=== PATIENT | female | born 1970 | race Caucasian/White ===

== ENCOUNTER 2021-10-01 09:39 | Outpatient (CLI) | payer OTHER, SELFPAY ==
[2021-10-01 10:03] LABS: Basophils Percent Auto 1.3 % (0.0-1.0); Eosinophils Absolute Auto 0.17 K/mm3 (0.02-0.50); Eosinophils Percent Auto 2.2 % (1.0-6.0); Hematocrit 48.6 % (35.0-49.0); Hemoglobin 16.8 g/dL (12.0-15.0); Immature Granulocyte Absolute 0.05 K/mm3 (0.00-0.00); Immature Granulocyte Percent A 0.6 % (0.0-0.0); Lymphocytes Absolute Auto 2.83 K/mm3 (1.10-4.50); Lymphocytes Percent Auto 36.8 % (18.0-42.0); Mean Corpuscular HGB Conc 34.6 g/dL (32.0-36.0); Mean Corpuscular Hemoglobin 30.3 pg (27.0-31.0); Mean Corpuscular Volume 87.6 fL (78.0-102.0); Mean Platelet Volume 11.9 fl (9.2-11.8); Monocytes Absolute Auto 0.61 K/mm3 (0.10-0.90); Monocytes Percent Auto 7.9 % (2.0-11.0); Neutrophils Absolute Auto 3.9 K/mm3 (1.7-7.2); Neutrophils Percent Auto 51.2 % (50.0-70.0); Platelet Count Result 209 K/mm3 (150-420); Red Blood Count 5.55 M/mm3 (4.20-5.40); Red Cell Distribution Width 12.5 % (11.6-14.4); White Blood Count 7.7 K/mm3 (4.8-10.8)
[2021-10-01 10:28] LABS: Hemoglobin A1C 10.2 % (<5.7)
[2021-10-01 11:22] LABS: Alanine Aminotransferase 46 U/L (14-59); Albumin Level 4.2 g/dL (3.4-5.0); Alkaline Phosphatase 111 U/L (46-116); Anion Gap 14 mmol/L (8-16); Aspartate Amino Transferase 21 U/L (15-37); Bilirubin,Total 0.6 mg/dL (0.00-1.00); Blood Urea Nitrogen 16 mg/dL (7-18); Calcium 9.2 mg/dL (8.5-10.1); Carbon Dioxide 26 mmol/L (21-32); Chloride 95 mmol/L (98-108); Cholesterol 126 mg/dL (0-200); Estimated Glomerular Filt Rate 50; Glucose 366 mg/dL (70-99); HDL Direct 31 mg/dL (40-60); LDL Cholesterol Calculated 56 mg/dL (<130); Osmolality Calculated 296 mOsm/kg (285-295); Potassium 4.5 mmol/L (3.5-5.1); Sodium 135 mmol/L (136-145); Total Protein 7.5 g/dL (6.4-8.2); Triglycerides 196 mg/dL (0-150)
[2021-10-03 14:29] LABS: Vitamin D 25 Hydroxy 36 ng/mL (30-100)
== END 2021-10-01 09:40 | disposition home or self-care (01) ==
LOC: CHSLAB 09:41
PROVIDERS: PCP Nurse Practitioner Family; Visit Provider Nurse Practitioner Family
DX: E11.9 Type 2 diabetes mellitus without complications (principal); E78.00 Pure hypercholesterolemia, unspecified; E55.9 Vitamin D deficiency, unspecified
CPT/HCPCS: 36415; 80053; 80061; 82306; 83036; 85025

== ENCOUNTER 2021-12-12 12:20 | Outpatient (CLI) | payer OTHER, SELFPAY ==
--- NOTE | ~2021-12-12 | CT_ITS ---
EXAMINATION: CT lumbar spine wo con DATE: 12/12/2021 13:06 INDICATION: Dorsalgia. Neuropathy in the legs. TECHNIQUE: Computed tomography (CT) of the lumbar spine was performed without intravenous contrast. A utomated exposure control and iterative reconstruction technique were employed. The dose-length produ ct was 939.43 mGy-cm. COMPARISON: None FINDINGS: Bone alignment is normal. There are Schmorl's nodes at multiple levels. There is mild chron ic anterior wedging of T12 vertebral body. There is severely decreased disc height at L3-L4. There ar e changes of disc replacement at L4-L5. There are changes of anterior and posterior fusion procedures at L5-S1 with interbody devices and pedicle screws. Partially visualized are epidural electrodes wit h tips in thoracic spine. The following disc levels are specifically discussed: L1-L2: The disc does not extend beyond the endplate margin. There is mild bilateral facet joint osteo arthritis. There is no neural foraminal stenosis. There is no central canal stenosis. L2-L3: The disc is bulging. There is mild bilateral facet joint osteoarthritis. There is mild bilater al neural foraminal stenosis. There is mild central canal stenosis. L3-L4: The disc is bulging. There is mild bilateral facet joint osteoarthritis. There is mild right a nd moderate left neural foraminal stenosis. There is mild central canal stenosis. L4-L5: There is mild right and severe left facet joint osteoarthritis. There is mild bilateral neural foraminal stenosis. There is no central canal stenosis. L5-S1: There is mild bilateral facet joint hypertrophy. There is mild left neural foraminal stenosis. There is mild central canal stenosis. IMPRESSION: 1. Severe lumbar spondylosis. 2. Disc replacement at L4-L5. Anterior and posterior fusion procedures at L5-S1. Reviewed, dictated and finalized at location B. IMPRESSION: 1. Severe lumbar spondylosis. 2. Disc replacement at L4-L5. Anterior and posterior fusion procedures at L5-S1 .
[2021-12-12 13:47] LABS: Erythrocyte Sedimentation Rate 5 mm/hr (0-20)
[2021-12-12 13:57] LABS: Thyroid Stimulating Hormone Reflex 0.71 u/IU/mL (0.36-3.74)
[2021-12-12 13:58] LABS: Vitamin B12 992 pg/mL (193-986)
[2021-12-15 13:52] LABS: T4 Thyroxine 7.6 mcg/dL (5.1-11.9)
== END 2021-12-12 12:21 | disposition home or self-care (01) ==
LOC: CHSIMG 12:23
PROVIDERS: PCP Nurse Practitioner Family
DX: G62.9 Polyneuropathy, unspecified (principal); M54.9 Dorsalgia, unspecified
CPT/HCPCS: 36415; 72131; 80307; 82607; 84436; 84443; 85652; 86038

== ENCOUNTER 2022-04-17 11:17 | Outpatient (CLI) | payer OTHER, SELFPAY | END 2022-04-17 11:18 | disposition home or self-care (01) | LOC: CHSLAB 11:20 | PROVIDERS: PCP Nurse Practitioner Family | DX: Z79.891 Long term (current) use of opiate analgesic (principal) | CPT/HCPCS: 36415; 80307 ==

== ENCOUNTER 2022-07-07 10:16 | Emergency (ER) | payer OTHER, SELFPAY ==
--- NOTE | ~2022-07-07 | XR_ITS ---
XR ankle LT 2V DATE: 07/07/2022 11:20 INDICATION: Ankle and foot injury TECHNIQUE: AP and lateral views COMPARISON: None FINDINGS: There is a transverse lateral malleolar fracture 1 cm proximal to the inferior tip of the l ateral malleolus, with approximately 1.4 mm lateral displacement. Malleolus and posterior malleolus a re intact. The ankle mortise appears preserved. There is also a fracture of the base of the fifth metatarsal bone with minimal displacement. Prominent plantar calcaneal enthesopathy without erosive change or periostitis. IMPRESSION: Lateral malleolar and fifth metatarsal base fractures Reviewed, dictated and finalized at location A. 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
--- NOTE | ~2022-07-07 | XR_ITS ---
XR foot LT 2V DATE: 07/07/2022 11:20 INDICATION: Ankle and foot injury TECHNIQUE: AP and lateral views COMPARISON: None FINDINGS: There is a recent linear oblique minimally displaced intra-articular fracture of the base o f the fifth metatarsal bone. Lateral malleolar transverse fracture. There is an apparent chronic ununited fracture of the medial aspect of the head of the proximal phala nx of the left great toe. Prominent plantar calcaneal enthesopathy. IMPRESSION: Recent fractures, including intra-articular fracture of the base of the fifth metatarsal bone and lateral malleolar fracture Old ununited fracture of the medial head of the proximal phalanx of the left great toe Plantar calcaneal enthesopathy Reviewed, dictated and finalized at location A. KILN OPERATOR HELPER IMPRESSION: Recent fractures, including intra-articular fracture of the base of the fifth metatarsal bone and lateral malleolar fracture Old ununited fracture of the medial head of the proximal phalanx of the left gr eat toe Plantar calcaneal enthesopathy
--- NOTE | ~2022-07-07 | XR_ITS ---
EXAMINATION: XR knee RT 2V DATE: 07/07/2022 11:21 INDICATION: Right knee injury TECHNIQUE: Weightbearing AP and flexed lateral views of the right knee were obtained. COMPARISON: None. FINDINGS: Alignment is normal. No fracture. Joint spaces are normal. No right knee joint effusion. Mild soft ti ssue swelling anterior to the inferior patella. IMPRESSION: 1. No right knee joint effusion or osseous abnormality. Reviewed, dictated and finalized at location B. 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
[2022-07-07 10:35] VITALS: BP 125/74; PULSE 96; RESP 16; TEMP 36.2; O2SAT 92; O2SAT 94
--- NOTE | 2022-07-07 11:34 | ED.LOWEXIN ---
HPI - Extremity Injury (Lower) General Chief Complaint: Extremity Injury, Lower Stated Complaint: FOOT AND ANKLE PAIN Time Seen by Provider: 07/07/22 10:18 Source: patient and family Mode of arrival: wheelchair Limitations: no limitations History of Present Illness HPI Narrative: this is a 52-year-old female who presents with left foot and ankle pain after she missed a step yesterday causing pain and swelling in her left foot and ankle, she also hit her right knee, a patient with a history of diabetes and peripheral neuropathy, has decreased range of motion secondary to pain. MD complaint: ankle injury and foot injury Injury: Left: ankle ( swelling with decreased range of motion) and foot ( swelling with decreased range of motion) Type of Injury: inversion Place: home Severity: moderate Severity scale (1-10): 6 Relieving factors: nothing and NSAID Exacerbating factors: weight bearing, movement and palpation Context: fall Related Data Home Medications Medication Instructions Recorded Confirmed baclofen 10 mg tablet 10 mg PO BID PRN Pain 10/01/21 07/07/22 pregabalin 150 mg capsule 150 mg PO TID 10/01/21 10/01/21 tapentadol 100 mg tablet (Nucynta) 100 mg PO BID 10/01/21 07/07/22 Allergies Allergy/AdvReac Type Severity Reaction Status Date / Time morphine Allergy Severe vomitting Verified 07/07/22 10:54 codeine Allergy Unknown unknown Verified 07/07/22 10:54 Penicillins Allergy Unknown unknown Verified 07/07/22 10:54 Review of Systems Review of Systems: All systems reviewed & are unremarkable except as noted in HPI and below PMFSH Past Medical History Medical History Benign hypertension Spinal cord stimulator status Surgical History Surgical History History of appendectomy History of cholecystectomy History of hysterectomy Family History Family History Father Hypertension Family history of elevated blood lipids Family history of diabetes mellitus in first degree relative Mother Hypertension Family history of diabetes mellitus in first degree relative Social History Social History Smoking packs per day: 0.5 Smoking cigarettes per day: 10.0 Years smoked: 27 Smoking pack-years: 13.50 Smoking status: Current every day smoker Alcohol intake: never Substance use: never Substance use type: does not use Additional living arrangements comments: with father Exam Const: General: healthy appearing and no acute distress Nutritional Appearance: well nourished Limitations: no limitations HENMT: Head: normal to inspection Face/Nose/Sinus: Normal external nose present Eyes: Conjunctivae: conjunctivae normal Pupils: Equal, round and reactive pupils present EOM: EOMs intact bilaterally Direct Ophthalmoscopy: no photophobia Neck: Neck: normal visual inspection, no lymphadenopathy and no meningeal signs Chest: Chest palpation & inspection: normal inspection of the chest Resp: Effort & Inspection: normal respiratory effort Cardio: Rate: regular rate Rhythm: regular rhythm GI: GI Palp: Yes Soft to palpation Auscultation: normal bowel sounds : General: Yes bladder normal to palpation Back/Spine/Pelvis: Back: no CVA tenderness Skin: General skin exam: normal color Rashes: no rashes Wounds: no wounds Neuro: General: patient oriented x3 Cranial nerves: Yes Nystagmus not present Speech: normal speech Extrem: Other: Swelling and tenderness left lateral malleolus and foot pain and swelling. Psych: Affect: normal affect Course Course Emergency Course: Patient received 60mg IM Toradol after reassessment pain has slightly improved, x-rays performed and reviewed with patient showed a fracture of her left ankle and the base of her 5th metatarsal. Vital Si
[2022-07-07] MEDS: KETOROLAC (*BKC) 60 MG/2 ML VIAL IM (12:04)
[2022-07-07 12:25] VITALS: BP 140/65; PULSE 72; RESP 16; TEMP 36.8; O2SAT 95
== END 2022-07-07 12:30 | disposition home or self-care (01) ==
PROVIDERS: Emergency Provider Emergency Medicine; PCP Nurse Practitioner Family
DX: S82.892A Other fracture of left lower leg, initial encounter for closed fracture (principal); S92.902A Unspecified fracture of left foot, initial encounter for closed fracture
CPT/HCPCS: 29515; 73560; 73600; 73620; 96372; 99284; J1885

== ENCOUNTER 2022-07-08 13:54 | Outpatient (CLI) | payer OTHER, SELFPAY ==
[2022-07-08 14:17] LABS: Eosinophils Absolute Auto 0.34 K/mm3 (0.02-0.50); Eosinophils Percent Auto 3.4 % (1.0-6.0); Hematocrit 46.2 % (35.0-49.0); Hemoglobin 15.1 g/dL (12.0-15.0); Immature Granulocyte Absolute 0.03 K/mm3 (0.00-0.00); Immature Granulocyte Percent A 0.3 % (0.0-0.0); Lymphocytes Absolute Auto 2.76 K/mm3 (1.10-4.50); Lymphocytes Percent Auto 27.9 % (18.0-42.0); Mean Corpuscular HGB Conc 32.7 g/dL (32.0-36.0); Mean Corpuscular Hemoglobin 29.8 pg (27.0-31.0); Mean Corpuscular Volume 91.3 fL (78.0-102.0); Mean Platelet Volume 12.2 fl (9.2-11.8); Monocytes Absolute Auto 0.83 K/mm3 (0.10-0.90); Monocytes Percent Auto 8.4 % (2.0-11.0); Neutrophils Absolute Auto 5.9 K/mm3 (1.7-7.2); Platelet Count Result 169 K/mm3 (150-420); Red Blood Count 5.06 M/mm3 (4.20-5.40); Red Cell Distribution Width 13.5 % (11.6-14.4); White Blood Count 9.9 K/mm3 (4.8-10.8)
[2022-07-08 14:22] LABS: Creatinine Urine 63.82 mg/dL (40-278); MALB Creatinine Ratio 20.3 mg/g (0-30); Microalbumin Urine Random < 13.0 mg/L
[2022-07-08 14:24] LABS: Hemoglobin A1C 7.3 % (<5.7)
[2022-07-08 15:25] LABS: Alanine Aminotransferase 29 U/L (14-59); Albumin Level 3.8 g/dL (3.4-5.0); Alkaline Phosphatase 112 U/L (46-116); Anion Gap 7 mmol/L (8-16); Aspartate Amino Transferase 22 U/L (15-37); Bilirubin,Total 0.4 mg/dL (0.00-1.00); Blood Urea Nitrogen 20 mg/dL (7-18); Calcium 8.9 mg/dL (8.5-10.1); Carbon Dioxide 31 mmol/L (21-32); Chloride 103 mmol/L (98-108); Cholesterol 135 mg/dL (0-200); Estimated Glomerular Filt Rate 34; Glucose 227 mg/dL (70-99); HDL Direct 38 mg/dL (40-60); LDL Cholesterol Calculated 54 mg/dL (<130); Osmolality Calculated 301 mOsm/kg (285-295); Potassium 4.6 mmol/L (3.5-5.1); Sodium 141 mmol/L (136-145); Triglycerides 213 mg/dL (0-150); Vitamin B12 742 pg/mL (193-986)
[2022-07-10 17:41] LABS: Vitamin D 25 Hydroxy 33 ng/mL (30-100)
[2022-07-21 15:47] LABS: Red Blood Cell Folate 407 ng/mL RBC (>280)
== END 2022-07-08 13:55 | disposition home or self-care (01) ==
LOC: CHSLAB 13:56
PROVIDERS: PCP Nurse Practitioner Family; Visit Provider Nurse Practitioner Family
DX: N19 Unspecified kidney failure (principal); E78.00 Pure hypercholesterolemia, unspecified; E55.9 Vitamin D deficiency, unspecified; E11.21 Type 2 diabetes mellitus with diabetic nephropathy
CPT/HCPCS: 36415; 80053; 80061; 82043; 82306; 82607; 82746; 82747; 83036; 85025

== ENCOUNTER 2022-07-15 11:30 | Outpatient (CLI) | payer OTHER, SELFPAY ==
[2022-07-15 11:57] LABS: Basophils Absolute Auto 0.14 K/mm3 (0.00-0.10); Basophils Percent Auto 1.9 % (0.0-1.0); Eosinophils Absolute Auto 0.39 K/mm3 (0.02-0.50); Eosinophils Percent Auto 5.3 % (1.0-6.0); Hematocrit 48.8 % (35.0-49.0); Immature Granulocyte Absolute 0.03 K/mm3 (0.00-0.00); Immature Granulocyte Percent A 0.4 % (0.0-0.0); Lymphocytes Absolute Auto 2.29 K/mm3 (1.10-4.50); Lymphocytes Percent Auto 31.3 % (18.0-42.0); Mean Corpuscular HGB Conc 32.8 g/dL (32.0-36.0); Mean Corpuscular Hemoglobin 29.7 pg (27.0-31.0); Mean Corpuscular Volume 90.7 fL (78.0-102.0); Mean Platelet Volume 11.6 fl (9.2-11.8); Monocytes Absolute Auto 0.65 K/mm3 (0.10-0.90); Monocytes Percent Auto 8.9 % (2.0-11.0); Neutrophils Absolute Auto 3.8 K/mm3 (1.7-7.2); Neutrophils Percent Auto 52.2 % (50.0-70.0); Platelet Count Result 252 K/mm3 (150-420); Red Blood Count 5.38 M/mm3 (4.20-5.40); Red Cell Distribution Width 12.8 % (11.6-14.4); White Blood Count 7.3 K/mm3 (4.8-10.8)
[2022-07-15 12:32] LABS: Alanine Aminotransferase 35 U/L (14-59); Albumin Level 3.8 g/dL (3.4-5.0); Alkaline Phosphatase 127 U/L (46-116); Anion Gap 10 mmol/L (8-16); Aspartate Amino Transferase 22 U/L (15-37); Bilirubin,Total 0.5 mg/dL (0.00-1.00); Blood Urea Nitrogen 20 mg/dL (7-18); Calcium 9.4 mg/dL (8.5-10.1); Carbon Dioxide 29 mmol/L (21-32); Chloride 104 mmol/L (98-108); Estimated Glomerular Filt Rate 55; Glucose 173 mg/dL (70-99); Osmolality Calculated 302 mOsm/kg (285-295); Potassium 4.5 mmol/L (3.5-5.1); Sodium 143 mmol/L (136-145); Total Protein 7.7 g/dL (6.4-8.2)
[2022-07-15 13:16] LABS: Add Urine Microscopic? YES; Appearance Urine Clear (Clear); Bilirubin Urine Negative (Negative); Blood Urine Negative (Negative); Color Urine Yellow (Yellow); Glucose Urine UA 3+ (Negative); Ketones Urine Negative (Negative); Leukocyte Esterase Ur Negative (Negative); Nitrate Urine Negative (Negative); Protein Urine Negative (Negative); Specific Grav Ur 1.015 (1.010-1.020); Urobilinogen Urine 0.2 mg/dL (0.2-1.0)
[2022-07-15 13:21] LABS: RBC Urine None seen /hpf (0-2); Squamous Epithelial Cell Urine Occasional /hpf (Few); WBC Urine None seen /hpf (0-3)
[2022-07-15 13:22] LABS: Bacteria Urine Trace /hpf
== END 2022-07-15 11:31 | disposition home or self-care (01) ==
LOC: CHSLAB 11:32
PROVIDERS: PCP Nurse Practitioner Family; Visit Provider Nurse Practitioner Family
DX: E55.9 Vitamin D deficiency, unspecified (principal); N18.30 Chronic kidney disease, stage 3 unspecified
CPT/HCPCS: 36415; 80053; 81001; 85025

== ENCOUNTER 2022-10-13 09:48 | Outpatient (CLI) | payer OTHER, SELFPAY ==
--- NOTE | ~2022-10-13 | XR_ITS ---
EXAMINATION: XR sacroiliac joints min 3V DATE: 10/13/2022 14:45 INDICATION: Chronic bilateral hip and lower back pain TECHNIQUE: AP and left and right lateral views of the bilateral sacralized joints were obtained. COMPARISON: None. FINDINGS: Postoperative changes in the lumbar spine including combined instrumented anterior and posterior spin al fusion at L5-S1 with interbody bone graft cages and bilateral vertical ashli and pedicle screw fixat ion. There is also L4-L5 prosthetic disc. Likely spinal stimulator power supply projects over the lef t buttock with leads extending medially to the mid lumbar spine and cephalad beyond the superior evita in of the [id number]. Mild bilateral sacroiliac osteoarthritis with mild nonuniform joint space narrowing and mild subartic ular sclerosis. No joint space widening or erosions to suggest an inflammatory sacroiliitis. There is also mild right and minimal left hip osteoarthritis. No fractures. IMPRESSION: 1. 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 Reviewed, dictated and finalized at location A. CTOR SAFETY
--- NOTE | ~2022-10-13 | XR_ITS ---
CORRECTED REPORT ordering doctor corrected 10/13/2022 LILLIAN This report was recreated on 10/13/22. Original report was signed by Chance Garcia M.D. on 10/13/2022 14:50 SALES AND SERVICE CONSULTANT. AP and lateral views of the bilateral hips Clinical history: Pain Findings: No acute fracture or dislocation is seen. Osseous alignment is anatomic. Bilateral hip and SI joint spaces are preserved. Soft tissues are unremarkable. Impression: No significant abnormality is seen. Reviewed, dictated and finalized at location . S AND SERVICE CONSULTANT MTDD Impression: No significant abnormality is seen.
[2022-10-13 10:38] LABS: Alanine Aminotransferase 43 U/L (14-59); Albumin Level 4.2 g/dL (3.4-5.0); Alkaline Phosphatase 140 U/L (46-116); Anion Gap 7 mmol/L (8-16); Aspartate Amino Transferase 22 U/L (15-37); Bilirubin,Total 0.5 mg/dL (0.00-1.00); Blood Urea Nitrogen 14 mg/dL (7-18); Carbon Dioxide 30 mmol/L (21-32); Chloride 103 mmol/L (98-108); Cholesterol 118 mg/dL (0-200); Estimated Glomerular Filt Rate 53; Glucose 162 mg/dL (70-99); HDL Direct 33 mg/dL (40-60); LDL Cholesterol Calculated 52 mg/dL (<130); Osmolality Calculated 294 mOsm/kg (285-295); Phosphorus 4.3 mg/dL (2.6-4.7); Potassium 4.5 mmol/L (3.5-5.1); Sodium 140 mmol/L (136-145); Total Protein 7.3 g/dL (6.4-8.2); Triglycerides 167 mg/dL (0-150)
== END 2022-10-13 09:49 | disposition home or self-care (01) ==
PROVIDERS: PCP Nurse Practitioner Family; Visit Provider Nurse Practitioner Family
DX: N18.30 Chronic kidney disease, stage 3 unspecified (principal); E11.21 Type 2 diabetes mellitus with diabetic nephropathy; M46.1 Sacroiliitis, not elsewhere classified; M25.559 Pain in unspecified hip
CPT/HCPCS: 36415; 72202; 73521; 80053; 80061; 80069; 83036

== ENCOUNTER 2022-10-28 12:22 | Outpatient (CLI) | payer OTHER, SELFPAY ==
--- NOTE | ~2022-10-28 | DEXA_ITS ---
Bone Density Report Name: MONTEZ MAGUIRE Age: 52 Sex: Female Ethnicity: White Date of : 1970 Indication: postmenopausal; screening for osteoporosis; prior fracture; hysterectomy; Referring Provider: KAY ACHARYA Study: Bone densitometry was performed. Exam Date: October 28, 2022 Accession number: [id number] Bone Density: Region BMD T-score Z-score Classification Femoral Neck (Left) 0.821 -0.2 0.7 Normal Total Hip (Left) 0.921 -0.2 0.4 Normal Femoral Neck (Right) 0.695 -1.4 -0.5 Osteopenia Total Hip (Right) 0.976 0.3 0.9 Normal Femoral Neck Mean 0.758 -0.8 0.1 Normal Total Hip Mean 0.949 0.1 0.6 Normal World Health Organization criteria for BMD impression classify patients as: Normal (T-score at or above -1.0), Osteopenia (T-score between -1.0 and -2.5), or Osteoporosis (T-score at or below -2.5). 10-year Fracture Risk: FRAX not reported because: Treated for osteoporosis Clinical Information Provided by Patient: Has had a low trauma fracture Smokes Is being treated for osteoporosis Has used the following medications: Vitamin D, injections for osteoporosis - unsure of name Has the following medical conditions: Hysterectomy Patient maximum height was 62 Menopause Age: 23 No regular weight bearing exercise Does not regularly consume dairy products Drinks caffeinated beverages Onset of menses at age 18 Number of children 3 Impression: The patient has low bone mass, based on the Right Femoral Neck T-score. The patient has risk factors, including: smoking, previous fracture. Discussion: It is important to ask patients whether they are taking their medications and to encourage continued and appropriate compliance with their osteoporosis therapies to reduce fracture risk. It is also important to review their risk factors and encourage appropriate calcium and vitamin D intakes, exercise, fall prevention and other lifestyle measures. Follow-Up: Consider a repeat BMD and Vertebral Fracture Assessment (VFA) exam in 2 years or sooner if medically necessary, to reassess this patient's status. Reported by: Dr. Christos Wolf on 10/28/2022 1:07:00 PM. Reviewed, dictated and finalized at location A. [facility] CENTERPattie
== END 2022-10-28 12:23 | disposition home or self-care (01) ==
LOC: CHSIMG 12:22
PROVIDERS: PCP Nurse Practitioner Family; Visit Provider Nurse Practitioner Family
DX: Z78.0 Asymptomatic menopausal state (principal); M85.851 Other specified disorders of bone density and structure, right thigh
CPT/HCPCS: 77080

== ENCOUNTER 2022-12-04 10:20 | Outpatient (CLI) | payer OTHER, SELFPAY ==
[2022-12-10 12:58] LABS: Amphetamines NEGATIVE ng/mL (<500); Barbiturates NEGATIVE ng/mL (<300); Benzodiazepines NEGATIVE ng/mL (<100); Cocaine Metabolite NEGATIVE ng/mL (<100); Marijuana Metabolite 45 ng/mL (<5); Methadone Metabolite NEGATIVE ng/mL (<100); Opiates NEGATIVE ng/mL (<100); Oxidant NEGATIVE mcg/mL (<200); pH 7.3 (4.5-9.0)
== END 2022-12-04 10:21 | disposition home or self-care (01) ==
PROVIDERS: PCP Nurse Practitioner Family; Visit Provider Nurse Practitioner Family
DX: G89.4 Chronic pain syndrome (principal)
CPT/HCPCS: 80299; 80349; G0480

== ENCOUNTER 2023-01-02 11:49 | Outpatient (CLI) | payer OTHER, SELFPAY ==
[2023-01-02 12:18] LABS: Hemoglobin A1C 6.3 % (<5.7)
[2023-01-02 12:45] LABS: Alanine Aminotransferase 39 U/L (14-59); Alkaline Phosphatase 133 U/L (46-116); Anion Gap 9 mmol/L (8-16); Aspartate Amino Transferase 21 U/L (15-37); Bilirubin,Total 0.4 mg/dL (0.00-1.00); Blood Urea Nitrogen 9 mg/dL (7-18); Calcium 9.5 mg/dL (8.5-10.1); Carbon Dioxide 29 mmol/L (21-32); Chloride 106 mmol/L (98-108); Cholesterol 123 mg/dL (0-200); Estimated Glomerular Filt Rate 47; Glucose 119 mg/dL (70-99); HDL Direct 43 mg/dL (40-60); LDL Cholesterol Calculated 59 mg/dL (<130); Osmolality Calculated 297 mOsm/kg (285-295); Potassium 4.3 mmol/L (3.5-5.1); Sodium 144 mmol/L (136-145); Triglycerides 107 mg/dL (0-150)
[2023-01-02 16:11] LABS: Creatinine Urine 19.15 mg/dL (40-278); MALB Creatinine Ratio 67.8 mg/g (0-30); Microalbumin Urine Random < 13.0 mg/L
[2023-01-08 17:31] LABS: Vitamin D 25 Hydroxy 47 ng/mL (30-100)
== END 2023-01-02 11:50 | disposition home or self-care (01) ==
LOC: CHSLAB 11:51
PROVIDERS: PCP Nurse Practitioner Family; Visit Provider Nurse Practitioner Family
DX: E11.21 Type 2 diabetes mellitus with diabetic nephropathy (principal); E55.9 Vitamin D deficiency, unspecified; E78.00 Pure hypercholesterolemia, unspecified; N18.30 Chronic kidney disease, stage 3 unspecified
CPT/HCPCS: 36415; 80053; 80061; 82043; 82306; 83036

== ENCOUNTER 2023-02-25 13:16 | Outpatient (CLI) | payer OTHER, SELFPAY ==
--- NOTE | ~2023-02-25 | US_ITS ---
Renal-Bladder ultrasound Clinical History: Type 2 diabetes, chronic kidney disease Technique: Real-time sonographic imaging of the kidneys and urinary bladder was performed. Findings: The right kidney measures 9.3 cm in length and the left kidney measures 8.9 cm. There is no hydronephrosis or renal calculus identified. Renal cortical echogenicity is within normal limits. No renal mass lesion is identified. The urinary bladder is moderately distended at the time of this exam. No intraluminal echoes are iden tified. No abnormal wall thickening is seen. Impression: Unremarkable ultrasound of the kidneys and urinary bladder. Reviewed, dictated and finalized at location M. Impression: Unremarkable ultrasound of the kidneys and urinary bladder.
== END 2023-02-25 13:17 | disposition home or self-care (01) ==
LOC: CHSIMG 13:17
PROVIDERS: PCP Nurse Practitioner Family; Visit Provider Internal Medicine Nephrology
DX: E11.22 Type 2 diabetes mellitus with diabetic chronic kidney disease (principal); N18.31 Chronic kidney disease, stage 3a
CPT/HCPCS: 76775

== ENCOUNTER 2023-03-11 08:32 | Outpatient (CLI) | payer OTHER, SELFPAY ==
[2023-03-11 08:53] LABS: Creatinine Urine 25.43 mg/dL (40-278); Sodium Urine Random 41 mmol/L (20-110)
[2023-03-11 08:59] LABS: Total Protein Urine Random < 6.0 mg/dL (0.0-11.9); Ur Ttl Prot Creatinine Ratio 0.24 mg/mg (0-0.20)
[2023-03-11 09:35] LABS: Albumin Level 4.2 g/dL (3.4-5.0); Anion Gap 9 mmol/L (8-16); Blood Urea Nitrogen 12 mg/dL (7-18); Calcium 9.5 mg/dL (8.5-10.1); Carbon Dioxide 31 mmol/L (21-32); Chloride 104 mmol/L (98-108); Estimated Glomerular Filt Rate 54; Glucose 128 mg/dL (70-99); Osmolality Calculated 299 mOsm/kg (285-295); Phosphorus 4.4 mg/dL (2.6-4.7); Potassium 4.4 mmol/L (3.5-5.1); Sodium 144 mmol/L (136-145)
[2023-03-14 09:54] LABS: Complement C3 149 mg/dL (83-193)
[2023-03-14 12:28] LABS: Anti Glomerular Basement Memb <1.0 AI (<1.0)
[2023-03-14 23:00] LABS: Albumin 4.1 g/dL (3.8-4.8); Alpha 1 Globulin 0.3 g/dL (0.2-0.3); Beta 1 Globulin 0.5 g/dL (0.4-0.6); Protein, Total 7.2 g/dL (6.1-8.1)
[2023-03-16 13:02] LABS: ANCA Screen Negative (Negative)
[2023-03-16 21:19] LABS: Creatinine, Random Urine 29 mg/dL (20-275); Total Protein/Creatinine Ratio 138 mg/g creat (24-184)
== END 2023-03-11 08:33 | disposition home or self-care (01) ==
LOC: CHSLAB 08:33
PROVIDERS: PCP Nurse Practitioner Family; Visit Provider Internal Medicine Nephrology
DX: N18.31 Chronic kidney disease, stage 3a (principal); E11.22 Type 2 diabetes mellitus with diabetic chronic kidney disease
CPT/HCPCS: 36415; 80069; 82570; 83520; 84155; 84156; 84165; 84166; 84300; 86036; 86038; 86160; 86225

== ENCOUNTER 2023-04-06 11:50 | Outpatient (CLI) | payer OTHER, SELFPAY ==
[2023-04-06 12:11] LABS: Hematocrit 51.2 % (35.0-49.0); Mean Corpuscular HGB Conc 33.2 g/dL (32.0-36.0); Mean Corpuscular Hemoglobin 30.1 pg (27.0-31.0); Mean Corpuscular Volume 90.6 fL (78.0-102.0); Mean Platelet Volume 11.4 fl (9.2-11.8); Platelet Count Result 197 K/mm3 (150-420); Red Blood Count 5.65 M/mm3 (4.20-5.40); Red Cell Distribution Width 13.4 % (11.6-14.4); White Blood Count 9.5 K/mm3 (4.8-10.8)
[2023-04-06 12:35] LABS: Creatinine Urine 21.36 mg/dL (40-278); MALB Creatinine Ratio 60.8 mg/g (0-30); Microalbumin Urine Random < 13.0 mg/L
[2023-04-06 12:51] LABS: Hemoglobin A1C 5.8 % (<5.7)
[2023-04-06 13:10] LABS: Alanine Aminotransferase 41 U/L (14-59); Albumin Level 4.1 g/dL (3.4-5.0); Alkaline Phosphatase 127 U/L (46-116); Anion Gap 7 mmol/L (8-16); Aspartate Amino Transferase 22 U/L (15-37); Bilirubin,Total 0.5 mg/dL (0.00-1.00); Blood Urea Nitrogen 12 mg/dL (7-18); Calcium 9.6 mg/dL (8.5-10.1); Carbon Dioxide 33 mmol/L (21-32); Chloride 102 mmol/L (98-108); Estimated Glomerular Filt Rate 59; Glucose 145 mg/dL (70-99); Osmolality Calculated 296 mOsm/kg (285-295); Potassium 4.2 mmol/L (3.5-5.1); Sodium 142 mmol/L (136-145); Total Protein 7.4 g/dL (6.4-8.2)
[2023-04-13 21:16] LABS: Vitamin D 25 Hydroxy 45 ng/mL (30-100)
== END 2023-04-06 11:51 | disposition home or self-care (01) ==
LOC: CHSLAB 11:52
PROVIDERS: PCP Nurse Practitioner Family; Visit Provider Nurse Practitioner Family
DX: E55.9 Vitamin D deficiency, unspecified (principal); E11.9 Type 2 diabetes mellitus without complications; N18.30 Chronic kidney disease, stage 3 unspecified
CPT/HCPCS: 36415; 80053; 82043; 82306; 83036; 85027

== ENCOUNTER 2023-05-07 12:01 | Outpatient (CLI) | payer OTHER, SELFPAY | END 2023-05-07 12:02 | disposition home or self-care (01) | LOC: CHSLAB 12:03 | PROVIDERS: PCP Nurse Practitioner Family; Visit Provider Nurse Practitioner Family | DX: G62.9 Polyneuropathy, unspecified (principal); Z79.891 Long term (current) use of opiate analgesic; G89.4 Chronic pain syndrome | CPT/HCPCS: 36415; 80307; 80349; 80361; G0480 ==

== ENCOUNTER 2023-05-28 15:20 | Outpatient (CLI) | payer OTHER, SELFPAY ==
--- NOTE | ~2023-05-28 | XR_ITS ---
XR chest 2V DATE: 05/28/2023 16:04 INDICATION: Wheezing for one month TECHNIQUE: PA and lateral views COMPARISON: None FINDINGS: Normal heart size. No hilar or mediastinal enlargement. No pulmonary infiltrate or consolid ation, pleural effusion or pulmonary vascular congestion or pneumothorax is detected. Thoracic spinal leads. Status post cholecystectomy. Osteopenia. IMPRESSION: No active cardiopulmonary disease Reviewed, dictated and finalized at location L.
--- NOTE | ~2023-05-28 | XR_ITS ---
XR wrist LT min 3V DATE: 05/28/2023 16:04 INDICATION: Left wrist pain for 3 months TECHNIQUE: 4 views COMPARISON: None FINDINGS: No fracture or dislocation, periosteal reaction or bone destruction. Joint spaces are prese rved. No erosive change or chondrocalcinosis. IMPRESSION: Negative Reviewed, dictated and finalized at location L. IMPRESSION: Negative
[2023-05-28 16:16] LABS: Basophils Absolute Auto 0.11 K/mm3 (0.00-0.10); Basophils Percent Auto 1.6 % (0.0-1.0); Eosinophils Absolute Auto 0.28 K/mm3 (0.02-0.50); Eosinophils Percent Auto 4.1 % (1.0-6.0); Hematocrit 47.5 % (35.0-49.0); Hemoglobin 15.5 g/dL (12.0-15.0); Immature Granulocyte Absolute 0.01 K/mm3 (0.00-0.00); Immature Granulocyte Percent A 0.1 % (0.0-0.0); Lymphocytes Absolute Auto 3.21 K/mm3 (1.10-4.50); Lymphocytes Percent Auto 47.5 % (18.0-42.0); Mean Corpuscular HGB Conc 32.6 g/dL (32.0-36.0); Mean Corpuscular Hemoglobin 29.6 pg (27.0-31.0); Mean Corpuscular Volume 90.6 fL (78.0-102.0); Mean Platelet Volume 11.2 fl (9.2-11.8); Monocytes Absolute Auto 0.66 K/mm3 (0.10-0.90); Monocytes Percent Auto 9.8 % (2.0-11.0); Neutrophils Absolute Auto 2.5 K/mm3 (1.7-7.2); Neutrophils Percent Auto 36.9 % (50.0-70.0); Platelet Count Result 166 K/mm3 (150-420); Red Blood Count 5.24 M/mm3 (4.20-5.40); Red Cell Distribution Width 13.2 % (11.6-14.4); White Blood Count 6.8 K/mm3 (4.8-10.8)
[2023-05-28 17:27] LABS: Alanine Aminotransferase 56 U/L (14-59); Albumin Level 3.6 g/dL (3.4-5.0); Alkaline Phosphatase 129 U/L (46-116); Anion Gap 7 mmol/L (8-16); Aspartate Amino Transferase 25 U/L (15-37); Bilirubin,Total 0.3 mg/dL (0.00-1.00); Blood Urea Nitrogen 11 mg/dL (7-18); Calcium 9.2 mg/dL (8.5-10.1); Carbon Dioxide 29 mmol/L (21-32); Chloride 105 mmol/L (98-108); Estimated Glomerular Filt Rate 59; Glucose 117 mg/dL (70-99); NT Pro B Type Natriuretic Pept 51 pg/mL (0-125); Osmolality Calculated 292 mOsm/kg (285-295); Potassium 4.3 mmol/L (3.5-5.1); Sodium 141 mmol/L (136-145); Total Protein 6.4 g/dL (6.4-8.2)
== END 2023-05-28 15:21 | disposition home or self-care (01) ==
PROVIDERS: PCP Nurse Practitioner Family; Visit Provider Nurse Practitioner Family
DX: M25.532 Pain in left wrist (principal); R53.83 Other fatigue; R06.2 Wheezing
CPT/HCPCS: 36415; 71046; 73110; 80053; 83880; 85025

== ENCOUNTER 2023-06-03 11:26 | Outpatient (CLI) | payer OTHER, SELFPAY ==
[2023-06-03 11:35] LABS: Appearance Urine Clear (Clear); Bilirubin Urine Negative (Negative); Blood Urine 1+ (Negative); Color Urine Light Yellow (Yellow); Glucose Urine UA 3+ (Negative); Ketones Urine Negative (Negative); Leukocyte Esterase Ur 1+ (Negative); Nitrate Urine Negative (Negative); Protein Urine Negative (Negative); Specific Grav Ur <= 1.005 (1.010-1.020); Urobilinogen Urine 0.2 mg/dL (0.2-1.0); pH Urine 6.5 (5.0-8.0)
[2023-06-03 11:40] LABS: Add Urine Microscopic? YES; Bacteria Urine 1+ /hpf; Renal Epithelial Cells Urine Few /hpf; Squamous Epithelial Cell Urine Few /hpf (Few)
== END 2023-06-03 11:27 | disposition home or self-care (01) ==
LOC: CHSLAB 11:27
PROVIDERS: PCP Nurse Practitioner Family; Visit Provider Nurse Practitioner Family
DX: R42 Dizziness and giddiness (principal); R53.83 Other fatigue; R82.90 Unspecified abnormal findings in urine
CPT/HCPCS: 81001; 87086; 87088

== ENCOUNTER 2023-06-15 11:32 | Outpatient (CLI) | payer OTHER, SELFPAY | END 2023-06-15 11:33 | disposition home or self-care (01) | LOC: CHSLAB 11:34 | PROVIDERS: PCP Nurse Practitioner Family; Visit Provider Nurse Practitioner Family | DX: N18.31 Chronic kidney disease, stage 3a (principal) | CPT/HCPCS: 87086 ==

== ENCOUNTER 2023-07-13 08:37 | Outpatient (CLI) | payer OTHER, SELFPAY ==
[2023-07-13 09:13] LABS: Creatinine Urine 86.82 mg/dL (40-278); Total Protein Urine Random 10.7 mg/dL (0.0-11.9); Ur Ttl Prot Creatinine Ratio 0.12 mg/mg (0-0.20)
[2023-07-13 09:15] LABS: Hemoglobin A1C 6.4 % (<5.7)
[2023-07-13 09:28] LABS: Albumin Level 3.6 g/dL (3.4-5.0); Anion Gap 5 mmol/L (8-16); Blood Urea Nitrogen 11 mg/dL (7-18); Calcium 8.8 mg/dL (8.5-10.1); Carbon Dioxide 34 mmol/L (21-32); Chloride 102 mmol/L (98-108); Estimated Glomerular Filt Rate 49; Glucose 138 mg/dL (70-99); Osmolality Calculated 293 mOsm/kg (285-295); Phosphorus 4.9 mg/dL (2.6-4.7); Potassium 4.3 mmol/L (3.5-5.1); Sodium 141 mmol/L (136-145)
[2023-07-15 20:11] LABS: Parathyroid Intact 76 pg/mL (14-64)
[2023-07-17 11:29] LABS: Vitamin D 25 Hydroxy 22 ng/mL (30-100)
--- NOTE | 2023-07-20 12:16 | P.PCNPFT_ITS ---
PFT Procedure Performed PFT Procedure Performed Spirometry with Pre/Post Bronchodilator Plethysmography (Lung Vol) Diffusing Cap (DLCO) PFT Interpretation DOS: 07/13/2023 REQUESTING: Matthias Forman APRN REASON FOR TESTING: Wheezing PULMONARY FUNCTION TESTS Results are reliable and reproducible. Spirometry: Pre bronchodilator FEV1 is 2.02 L, 85%, normal. Pre bronchodilator FVC is 2.69 L, 93% predicted. Normal. FEV1/ FVC is 75%, normal. After bronchodilator administration there is a 7% increase in the FEV1, 2.16 L, 91%. After bronchodilator there was a 12% increase in the FVC, 3.02 L, 104%. This is a significant response to bronchodilator. The FEV1/ FVC ratio post bronchodilator is 72%. The [id number] is 60% predicted, drops 4% after bronchodilator administration. Lung volumes: Total lung capacity is 4.33 L, 95%, normal. Residual volume is 1.64 L, 101%, normal. RV /TLC is 38%, normal. Airway resistance is 6 0.25, 387%, elevated. Diffusion: DLCO is 15.9, 75% predicted, normal. DLCO/VA is 6.25, 87%, normal. Flow volume loop: Normal IMPRESSION: This pulmonary function tests on 07/13/2023 shows normal spirometry, normal lung volumes, normal diffusion with a positive response to bronchodilator. In the proper setting, this pattern may be consistent with as thma. Clinical correlation recommended. There are no prior studies for comparison. Alyson Meier MD
== END 2023-07-13 08:38 | disposition home or self-care (01) ==
LOC: CHSCARD 08:38
PROVIDERS: PCP Nurse Practitioner Family; Visit Provider Internal Medicine Nephrology
DX: E11.22 Type 2 diabetes mellitus with diabetic chronic kidney disease (principal); E55.9 Vitamin D deficiency, unspecified; N18.31 Chronic kidney disease, stage 3a; N25.81 Secondary hyperparathyroidism of renal origin; I12.9 Hypertensive chronic kidney disease with stage 1 through stage 4 chronic kidney disease, or unspecified chronic kidney disease; N18.30 Chronic kidney disease, stage 3 unspecified
CPT/HCPCS: 36415; 80069; 82306; 82570; 83036; 83970; 84156; 94060; 94726; 94729

== ENCOUNTER 2023-11-03 13:49 | Outpatient (CLI) | payer MEDICARE, MEDICAID, SELFPAY ==
--- NOTE | ~2023-11-03 | US_ITS ---
EXAMINATION: US arterial ankle brachial ind DATE: 11/03/2023 14:24 INDICATION: Purplish discoloration of the bilateral feet TECHNIQUE: Segmental pressures and plethysmographic and Doppler waveforms of the brachial and lower e xtremity arteries were obtained. COMPARISON: None. FINDINGS: Right and left brachial artery pressures of 140 mm Hg and 141 mm Hg, respectively, are concordant (no rmal difference <= 30 mmHg). The right ankle-brachial index (SEAMUS) is 1.17 (normal >= 0.9-1.0). The right great toe-brachial index (TBI) is 0.95 (normal >= 0.65). Arterial Doppler waveforms are biphasic with brisk systolic upstrokes at both right posterior tibial and dorsalis pedis arteries. The left SEAMUS is 1.13. The left TBI is 0.83. Arterial Doppler waveforms are triphasic with brisk systo lic upstrokes at both left posterior tibial and dorsalis pedis arteries. IMPRESSION: 1. No significant arterial occlusive disease with normal bilateral ABIs and TBIs. Reviewed, dictated and finalized at location L. IMPRESSION: 1. No significant arterial occlusive disease with normal bilateral ABIs and TBI s.
== END 2023-11-03 13:50 | disposition home or self-care (01) ==
LOC: CHSIMG 13:51
PROVIDERS: PCP Nurse Practitioner Family; Visit Provider Nurse Practitioner Family
DX: I73.9 Peripheral vascular disease, unspecified (principal); F17.200 Nicotine dependence, unspecified, uncomplicated
CPT/HCPCS: 93922

== ENCOUNTER 2023-11-09 11:20 | Outpatient (CLI) | payer MEDICARE, MEDICAID, SELFPAY ==
[2023-11-09 11:50] LABS: Creatinine Urine 16.56 mg/dL (40-278)
[2023-11-09 11:56] LABS: Hemoglobin A1C 6.8 % (<5.7)
[2023-11-09 11:58] LABS: Total Protein Urine Random < 7.0 mg/dL (0.0-11.9); Ur Ttl Prot Creatinine Ratio 0.42 mg/mg (0-0.20)
[2023-11-09 12:17] LABS: Albumin Level 4.1 g/dL (3.4-5.0); Anion Gap 10 mmol/L (8-16); Blood Urea Nitrogen 10 mg/dL (7-18); Calcium 9.2 mg/dL (8.5-10.1); Carbon Dioxide 31 mmol/L (21-32); Chloride 102 mmol/L (98-108); Estimated Glomerular Filt Rate 57; Glucose 78 mg/dL (70-99); Osmolality Calculated 294 mOsm/kg (285-295); Phosphorus 4.3 mg/dL (2.6-4.7); Potassium 4.3 mmol/L (3.5-5.1); Sodium 143 mmol/L (136-145)
[2023-11-13 02:57] LABS: Vitamin D 25 Hydroxy 67 ng/mL (30-100)
== END 2023-11-09 11:21 | disposition home or self-care (01) ==
LOC: CHSLAB 11:22
PROVIDERS: PCP Nurse Practitioner Family; Visit Provider Internal Medicine Nephrology
DX: E11.22 Type 2 diabetes mellitus with diabetic chronic kidney disease (principal); E55.9 Vitamin D deficiency, unspecified; N18.31 Chronic kidney disease, stage 3a; E11.9 Type 2 diabetes mellitus without complications
CPT/HCPCS: 36415; 80069; 82306; 82570; 83036; 84156

== ENCOUNTER 2024-03-16 09:55 | Outpatient (CLI) | payer MEDICARE, SELFPAY ==
[2024-03-16 10:16] LABS: Basophils Absolute Auto 0.08 K/mm3 (0.00-0.10); Basophils Percent Auto 1.3 % (0.0-1.0); Eosinophils Absolute Auto 0.28 K/mm3 (0.02-0.50); Eosinophils Percent Auto 4.6 % (1.0-6.0); Hematocrit 49.7 % (35.0-49.0); Hemoglobin 16.2 g/dL (12.0-15.0); Immature Granulocyte Absolute 0.02 K/mm3 (0.00-0.00); Immature Granulocyte Percent A 0.3 % (0.0-0.0); Immature Platelet Fraction Pct 5.7 % (1.0-7.0); Lymphocytes Absolute Auto 2.11 K/mm3 (1.10-4.50); Lymphocytes Percent Auto 34.5 % (18.0-42.0); Mean Corpuscular HGB Conc 32.6 g/dL (32-36); Mean Corpuscular Hemoglobin 28.9 pg (27.0-31.0); Mean Corpuscular Volume 88.8 fL (78.0-102.0); Mean Platelet Volume 11.6 fl (9.2-11.8); Monocytes Absolute Auto 0.55 K/mm3 (0.10-0.90); Neutrophils Absolute Auto 3.07 K/mm3 (1.70-7.20); Neutrophils Percent Auto 50.3 % (50.0-70.0); Platelet Count Result 129 K/mm3 (150-420); Red Cell Distribution Width 14.6 % (11.6-14.4); White Blood Count 6.1 K/mm3 (4.8-10.8)
[2024-03-16 10:20] LABS: Creatinine Urine 67.18 mg/dL (40-278); Total Protein Urine Random 10.2 mg/dL (0.0-11.9); Ur Ttl Prot Creatinine Ratio 0.15 mg/mg (0-0.20)
[2024-03-16 10:23] LABS: Hemoglobin A1C 6.2 % (<5.7)
[2024-03-16 10:50] LABS: Alanine Aminotransferase 52 U/L (14-59); Alkaline Phosphatase 156 U/L (46-116); Anion Gap 9 mmol/L (4-12); Aspartate Amino Transferase 35 U/L (15-37); Bilirubin,Total 0.3 mg/dL (0.00-1.00); Blood Urea Nitrogen 10 mg/dL (7-18); Calcium 8.9 mg/dL (8.5-10.1); Carbon Dioxide 27 mmol/L (21-32); Chloride 104 mmol/L (98-108); Cholesterol 144 mg/dL (0-200); Estimated Glomerular Filt Rate > 60; Glucose 140 mg/dL (70-99); HDL Direct 47 mg/dL (40-60); LDL Cholesterol Calculated 57 mg/dL (<130); Osmolality Calculated 291 mOsm/kg (285-295); Phosphorus 4.5 mg/dL (2.6-4.7); Potassium 4.6 mmol/L (3.5-5.1); Sodium 140 mmol/L (136-145); Triglycerides 202 mg/dL (0-150)
[2024-03-17 13:14] LABS: Parathyroid Intact 69 pg/mL (16-77)
[2024-03-18 11:44] LABS: Vitamin D 25 Hydroxy 40 ng/mL (30-100)
== END 2024-03-16 09:56 | disposition home or self-care (01) ==
LOC: CHSLAB 09:59
PROVIDERS: PCP Nurse Practitioner Family; Visit Provider Internal Medicine Nephrology
DX: Z00.00 Encounter for general adult medical examination without abnormal findings (principal); E11.22 Type 2 diabetes mellitus with diabetic chronic kidney disease; E55.9 Vitamin D deficiency, unspecified; N18.31 Chronic kidney disease, stage 3a; N25.81 Secondary hyperparathyroidism of renal origin
CPT/HCPCS: 36415; 80053; 80061; 82306; 82570; 83036; 83970; 84100; 84156; 85025; 85055

== ENCOUNTER 2024-06-03 14:04 | Outpatient (CLI) | payer MEDICARE, MEDICAID, SELFPAY ==
--- NOTE | ~2024-06-03 | CT_ITS ---
EXAMINATION: CT brain wo con DATE: 06/03/2024 14:34 INDICATION: Speech deficit. TECHNIQUE: Computed tomography (CT) of the head was performed without intravenous contrast. The mA wa s adjusted according to patient size. Iterative reconstruction technique was employed. The dose-lengt h product was 529.67 mGy-cm. COMPARISON: None FINDINGS: There is no intracranial hemorrhage, acute infarction, or abnormal intracranial mass lesion . There are prominent perivascular spaces in the bilateral basal ganglia. The ventricles are normal i n size. The paranasal sinuses are clear. The orbits are normal. The mastoid air cells are normal. IMPRESSION: 1. Normal brain. Reviewed, dictated and finalized at location A. IMPRESSION: 1. Normal brain.
[2024-06-03 15:04] LABS: Add Urine Microscopic? NO; Appearance Urine Clear (Clear); Bilirubin Urine Negative (Negative); Blood Urine Negative (Negative); Color Urine Light Yellow (Yellow); Glucose Urine UA 3+ (Negative); Ketones Urine Negative (Negative); Leukocyte Esterase Ur Negative LEU/UL (Negative); Nitrate Urine Negative (Negative); Protein Urine Negative (Negative); Specific Grav Ur <= 1.005 (1.010-1.020); Urobilinogen Urine 0.2 mg/dL (0.2-1.0)
[2024-06-04 11:23] LABS: Vitamin D 25 Hydroxy 34 ng/mL (30-100)
== END 2024-06-03 14:05 | disposition home or self-care (01) ==
PROVIDERS: PCP Nurse Practitioner Family; Visit Provider Nurse Practitioner Family
DX: R53.83 Other fatigue (principal); R39.15 Urgency of urination; E11.9 Type 2 diabetes mellitus without complications; R41.3 Other amnesia; Z86.73 Personal history of transient ischemic attack (TIA), and cerebral infarction without residual deficits; N18.31 Chronic kidney disease, stage 3a; E55.9 Vitamin D deficiency, unspecified
CPT/HCPCS: 36415; 70450; 81003; 82306; 84443

== ENCOUNTER 2024-07-26 01:41 | Day surgery (SDC) | payer MEDICARE, SELFPAY ==
[2024-07-12 11:16] VITALS: BMI 29.2
--- NOTE | 2024-07-12 12:28 | PC.NURSE ---
Spoke with _patient_ regarding medication _Eliquis_. Pt. verbalizes understanding that the last dose of ELIQUIS is to be taken on 07/22/2024 and the Endoscopist will instruct them when to restart after the procedure.
[2024-07-26 08:41] VITALS: BP 118/72; PULSE 99; RESP 18; TEMP 36.5; O2SAT 98; BMI 28.5
[2024-07-26] MEDS: LACTATED RINGERS 1,000 ML 150 ML IV CONT (08:53)
[2024-07-26 08:54] LABS: Glucose Point of Care 112 mg/dl (65-105)
--- NOTE | 2024-07-26 08:55 | SUR.PREOP ---
Patient reports accidentally taking her Eliquis yesterday, 07/25/24. Patient states she held Thursday07/24/[address] Mena notified and aware.
--- NOTE | 2024-07-26 09:22 | P.PNAN_ITS ---
Anes - Initial Pre Proc Eval Procedure: Operation Date: 07/26/24 10:00 Proposed Procedures p Colonoscopy - Rashad Mena MD Date/Time: 07/26/24 09:22 Surgeon: Rashad Mena MD Pre Op Diagnosis: + Cologuard Patient Data Age: 54 Gender: F Height: 1.57 m Weight: 70.8 kg Last Vital Signs Temp 36.5 C 07/26/24 08:41 Pulse 99 07/26/24 08:41 Resp 18 07/26/24 08:41 BP 118/72 07/26/24 08:41 Pulse Ox 98 07/26/24 08:41 O2 Del Method Room Air 07/26/24 08:41 Allergies Allergy/AdvReac Type Severity Reaction Status Date / Time codeine Allergy Severe Difficulty Verified 07/26/24 08:35 Breathing morphine Allergy Severe Difficulty Verified 07/26/24 08:35 Breathing Penicillins Allergy Severe Anaphylactic Verified 07/26/24 08:35 Shock Home Medications Medication Instructions Recorded Confirmed Type baclofen 10 mg tablet 10 mg PO BID Pain 10/01/21 07/26/24 History pregabalin 200 mg capsule 200 mg PO TID PRN Pain 01/20/23 07/26/24 History tapentadol 100 mg tablet (Nucynta) 150 mg PO BID 05/28/23 07/26/24 History budesonide 160 mcg-glycopyr 9 2 inh inhalation BID #10.7 grams 06/23/23 07/26/24 Rx mcg-formot 4.8 mcg/actuation HFA inhaler (Breztri Aerosphere) pen needle, diabetic 31 gauge x #100 ea 07/02/23 07/26/24 Rx 3/16 (TRUEplus Pen Needle) trazodone 50 mg tablet See Rx Instructions .Route .COMPLEX 10/21/23 07/26/24 History cholecalciferol (vitamin D3) 25 See Rx Instructions .Route 02/01/24 07/26/24 Rx mcg (1,000 unit) tablet (Vitamin .COMPLEX #30 tabs D3) blood sugar diagnostic (True #100 strips 03/07/24 07/26/24 Rx Metrix Glucose Test Strip) atorvastatin 80 mg tablet See Rx Instructions .Route 03/30/24 07/26/24 Rx .COMPLEX #90 tabs brexpiprazole 0.5 mg tablet 0.5 mg PO DAILY 05/27/24 07/26/24 History (Rexulti) tirzepatide 7.5 mg/0.5 mL 7.5 mg (0.5 mL) subcut WEEKLY #2 mL 05/30/24 07/26/24 Rx subcutaneous pen injector apixaban 5 mg tablet (Eliquis) See Rx Instructions .Route 06/16/24 07/26/24 Rx .COMPLEX #60 tabs albuterol sulfate 90 mcg/actuation See Rx Instructions .Route 07/12/24 07/26/24 History aerosol inhaler .COMPLEX PRN Shortness Of Breath Or Wheezing empagliflozin 10 mg tablet 10 mg PO DAILY 07/12/24 07/26/24 History (Jardiance) gabapentin 100 mg capsule 100 - 200 mg PO TID 07/12/24 07/26/24 History lorazepam 0.5 mg tablet 0.5 mg PO BID PRN Anxiety 07/12/24 07/26/24 History quetiapine 50 mg tablet 50 mg PO HS 07/12/24 07/26/24 History ondansetron 8 mg disintegrating See Rx Instructions .Route 07/26/24 07/26/24 History tablet .COMPLEX PRN Nausea And Vomiting Laboratory Tests 07/26/24 08:48 POC Capillary Glucose 112 H mg/dl (65-105) Patient hx anesthesia problems: none Family hx anesthesia problems: none Results Review: All pre-operative results and documents have been reviewed as part of the pre- operative evaluation. [facility] Past Medical History Medical History Benign hypertension CKD (chronic kidney disease) stage 3, GFR 30-59 ml/min Generalized anxiety disorder with panic attacks History of blood clots Hypercholesteremia Insomnia Kidney failure Spinal cord stimulator status Type 2 diabetes mellitus Surgical History Surgical History History of appendectomy History of cholecystectomy History of hysterectomy Family History Family History Father Hypertension Family history of elevated blood lipids Family history of diabetes mellitus in first degree relative Mother Hypertension Family history of diabetes mellitus in first degree relative Social History Social History (Reviewed 05/27/24 @ 13:07 by YONATAN Hill Smoking packs per day: 2 Smoking cigarettes per day: 40.0 Years smoked: 38 Smoking pack-years: 76.00 Smoking status: Current every day smoker Tobacco type: cigarettes Additional smoking assessment comments: ATTEMPTING TO QUIT- DOWN TO 0.5PK/DAY FOR 5 MONTHS NOW Alcohol intake: current Substance use: current Substance use type: marijuana Other substance usage details: MEDICAL- ONCE AT NIGHT- GUMMY, PILL OR JOINT Do You Feel Safe in your Home?: Yes Lack of Transportation: No Lack of Food: Never True Current Housing: I Have Housing Concerned About Future Housing: No Difficulty Paying Gas/Electric Bills: No Difficulty Paying for Meds: No Currently Unemployed: YES Education: Trade/Vocational Certificate Difficulty w/ Childcare or Family Care: No Living arrangements: with family Additional living arrangements comments: with father Gender identity (if verbalized by the patient): Female Spiritual care concerns: No Anes - Eval Final PreProcedure Day of Procedure 07/26/24 09:22 Patient weight: overweight Heart: regular rate and rhythm Lungs: clear to auscultation Airway: Mallampati scale class II Neurological: alert and oriented Last oral intake: >/= 8 hours ASA classification: III Emergent: no Anesthetic plan: proceed Anesthesia type and monitoring: general GIVS and standard monitoring Results Review: All pre-operative results and documents have been reviewed as part of the pre- operative evaluation. Informed Consent: The patient's anesthetic plan and its attendant risks and benefits were discussed with the patient/family/POA. Questions were solicited and answers provided to the satisfaction of the patient/family/POA.
--- NOTE | 2024-07-26 10:14 | PM.IMHP ---
H&P: HPI History of Present Illness Date/Time: 07/26/24 10:14 Chief Complaint: Positive Cologuard Narrative: This is the patient's first colonoscopy. she was recently found to have a Cologuard positive test. There are no GI symptoms and there is no family history of colorectal cancer. Review of Systems Review of Systems: All systems reviewed & are unremarkable except as noted in HPI and below PMFSH Past Medical History Medical History Benign hypertension CKD (chronic kidney disease) stage 3, GFR 30-59 ml/min Generalized anxiety disorder with panic attacks History of blood clots Hypercholesteremia Insomnia Kidney failure Spinal cord stimulator status Type 2 diabetes mellitus Surgical History Surgical History History of appendectomy History of cholecystectomy History of hysterectomy Family History Family History Father Hypertension Family history of elevated blood lipids Family history of diabetes mellitus in first degree relative Mother Hypertension Family history of diabetes mellitus in first degree relative Social History Social History Smoking packs per day: 2 Smoking cigarettes per day: 40.0 Years smoked: 38 Smoking pack-years: 76.00 Smoking status: Current every day smoker Tobacco type: cigarettes Additional smoking assessment comments: ATTEMPTING TO QUIT- DOWN TO 0.5PK/DAY FOR 5 MONTHS NOW Alcohol intake: current Substance use: current Substance use type: marijuana Other substance usage details: MEDICAL- ONCE AT NIGHT- GUMMY, PILL OR JOINT Do You Feel Safe in your Home?: Yes Lack of Transportation: No Lack of Food: Never True Current Housing: I Have Housing Concerned About Future Housing: No Difficulty Paying Gas/Electric Bills: No Difficulty Paying for Meds: No Currently Unemployed: YES Education: Trade/Vocational Certificate Difficulty w/ Childcare or Family Care: No Living arrangements: with family Additional living arrangements comments: with father Gender identity (if verbalized by the patient): Female Spiritual care concerns: No Meds Home Medications and Allergies Home Medications Medication Instructions Recorded Confirmed Type baclofen 10 mg tablet 10 mg PO BID Pain 10/01/21 07/26/24 History pregabalin 200 mg capsule 200 mg PO TID PRN Pain 01/20/23 07/26/24 History tapentadol 100 mg tablet (Nucynta) 150 mg PO BID 05/28/23 07/26/24 History budesonide 160 mcg-glycopyr 9 2 inh inhalation BID #10.7 grams 06/23/23 07/26/24 Rx mcg-formot 4.8 mcg/actuation HFA inhaler (Breztri Aerosphere) pen needle, diabetic 31 gauge x #100 ea 07/02/23 07/26/24 Rx 3/16 (TRUEplus Pen Needle) trazodone 50 mg tablet See Rx Instructions .Route .COMPLEX 10/21/23 07/26/24 History cholecalciferol (vitamin D3) 25 See Rx Instructions .Route 02/01/24 07/26/24 Rx mcg (1,000 unit) tablet (Vitamin .COMPLEX #30 tabs D3) blood sugar diagnostic (True #100 strips 03/07/24 07/26/24 Rx Metrix Glucose Test Strip) atorvastatin 80 mg tablet See Rx Instructions .Route 03/30/24 07/26/24 Rx .COMPLEX #90 tabs brexpiprazole 0.5 mg tablet 0.5 mg PO DAILY 05/27/24 07/26/24 History (Rexulti) tirzepatide 7.5 mg/0.5 mL 7.5 mg (0.5 mL) subcut WEEKLY #2 mL 05/30/24 07/26/24 Rx subcutaneous pen injector apixaban 5 mg tablet (Eliquis) See Rx Instructions .Route 06/16/24 07/26/24 Rx .COMPLEX #60 tabs albuterol sulfate 90 mcg/actuation See Rx Instructions .Route 07/12/24 07/26/24 History aerosol inhaler .COMPLEX PRN Shortness Of Breath Or Wheezing empagliflozin 10 mg tablet 10 mg PO DAILY 07/12/24 07/26/24 History (Jardiance) gabapentin 100 mg capsule 100 - 200 mg PO TID 07/12/24 07/26/24 History lorazepam 0.5 mg tablet 0.5 mg PO BID PRN Anxiety 07/12/24 07/26/24 History quetiapine 50 mg tablet 50 mg PO HS 07/12/24 07/26/24 History ondansetron 8 mg disintegrating See Rx Instructions .Route 07/26/24 07/26/24 History tablet .COMPLEX PRN Nausea And Vomiting Allergies Allergy/AdvReac Type Severity Reaction Status Date / Time codeine Allergy Severe Difficulty Verified 07/26/24 08:35 Breathing morphine Allergy Severe Difficulty Verified 07/26/24 08:35 Breathing Penicillins Allergy Severe Anaphylactic Verified 07/26/24 08:35 Shock Vital Signs Vital Signs - 24 hr 07/26/24 08:41 Temperature 97.7 F Pulse Rate 99 Respiratory Rate 18 Blood Pressure 118/72 Pulse Oximetry 98 Oxygen Delivery Room Air Exam Const: General: cooperative and healthy appearing Resp: Effort & Inspection: normal respiratory effort and able to speak in complete sentences Auscultation: clear to auscultation bilaterally Cardio: Rate: regular rate Rhythm: regular rhythm GI: Inspection: normal to inspection GI Palp: No No hepatosplenomegaly present Auscultation: normal bowel sounds Rectal Exam: deferred Skin: General skin exam: normal color Psych: Appearance: grossly normal Mental Status: mental status grossly normal Assessment and Plan Assessment and plan (1) Colon cancer screening: Code(s): Z12.11 - Encounter for screening for malignant neoplasm of colon Status: Acute Assessment and Plan: The patient is deemed a good candidate for the procedure. Consent signed. Will proceed.
[2024-07-26 10:48] VITALS: BP 103/65; PULSE 77; RESP 24; O2SAT 98
[2024-07-26 10:58] VITALS: BP 115/68; PULSE 76; RESP 17; O2SAT 100
[2024-07-26 11:05] LABS: Glucose Point of Care 74 mg/dl (65-105)
[2024-07-26 11:08] VITALS: BP 115/68; PULSE 75; RESP 19; O2SAT 100
== END 2024-07-26 11:17 | disposition home or self-care (01) ==
PROVIDERS: PCP Nurse Practitioner Family; Referring Provider Nurse Practitioner Family; Visit Provider Internal Medicine Gastroenterology
PROC: 0DJD8ZZ Inspection of Lower Intestinal Tract, Via Natural or Artificial Opening Endoscopic (ICD-10-PCS; CPT 45378; principal; 2024-07-26 10:00)
DX: K57.30 Diverticulosis of large intestine without perforation or abscess without bleeding (principal); I12.9 Hypertensive chronic kidney disease with stage 1 through stage 4 chronic kidney disease, or unspecified chronic kidney disease; E11.22 Type 2 diabetes mellitus with diabetic chronic kidney disease; N18.30 Chronic kidney disease, stage 3 unspecified; F41.9 Anxiety disorder, unspecified; E78.00 Pure hypercholesterolemia, unspecified; G47.00 Insomnia, unspecified; F12.90 Cannabis use, unspecified, uncomplicated; F17.210 Nicotine dependence, cigarettes, uncomplicated; Z79.82 Long term (current) use of aspirin; Z79.01 Long term (current) use of anticoagulants; Z79.84 Long term (current) use of oral hypoglycemic drugs; Z79.85 Long-term (current) use of injectable non-insulin antidiabetic drugs; Z98.890 Other specified postprocedural states; Z96.82 Presence of neurostimulator; Z90.49 Acquired absence of other specified parts of digestive tract
CPT/HCPCS: 45378; 82948; J2003; J2704; J7120

== ENCOUNTER 2024-09-05 12:32 | Outpatient (CLI) | payer MEDICARE, SELFPAY ==
[2024-09-05 13:15] LABS: Basophils Absolute Auto 0.11 K/mm3 (0.00-0.10); Basophils Percent Auto 1.8 % (0.0-1.0); Eosinophils Absolute Auto 0.32 K/mm3 (0.02-0.50); Eosinophils Percent Auto 5.1 % (1.0-6.0); Hematocrit 48.5 % (35.0-49.0); Hemoglobin 15.8 g/dL (12.0-15.0); Immature Granulocyte Absolute 0.01 K/mm3 (0.00-0.00); Immature Granulocyte Percent A 0.2 % (0.0-0.0); Lymphocytes Absolute Auto 2.67 K/mm3 (1.10-4.50); Lymphocytes Percent Auto 42.9 % (18.0-42.0); Mean Corpuscular HGB Conc 32.6 g/dL (32-36); Mean Corpuscular Hemoglobin 28.6 pg (27.0-31.0); Mean Corpuscular Volume 87.9 fL (78.0-102.0); Mean Platelet Volume 11.6 fl (9.2-11.8); Monocytes Absolute Auto 0.45 K/mm3 (0.10-0.90); Monocytes Percent Auto 7.2 % (2.0-11.0); Neutrophils Absolute Auto 2.67 K/mm3 (1.70-7.20); Neutrophils Percent Auto 42.8 % (50.0-70.0); Platelet Count Result 162 K/mm3 (150-420); Red Blood Count 5.52 M/mm3 (4.20-5.40); Red Cell Distribution Width 13.5 % (11.6-14.4); White Blood Count 6.2 K/mm3 (4.8-10.8)
[2024-09-05 13:29] LABS: Creatinine Urine 29.02 mg/dL (40-278); Total Protein Urine Random < 6.0 mg/dL (0.0-11.9); Ur Ttl Prot Creatinine Ratio 0.21 mg/mg (0-0.20)
[2024-09-05 13:45] LABS: Hemoglobin A1C 6.1 % (<5.7)
[2024-09-05 14:04] LABS: Alanine Aminotransferase 31 U/L (14-59); Alkaline Phosphatase 135 U/L (46-116); Anion Gap 9 mmol/L (4-12); Aspartate Amino Transferase 20 U/L (15-37); Bilirubin,Total 0.4 mg/dL (0.00-1.00); Blood Urea Nitrogen 14 mg/dL (7-18); Calcium 8.7 mg/dL (8.5-10.1); Carbon Dioxide 29 mmol/L (21-32); Chloride 105 mmol/L (98-108); Cholesterol 87 mg/dL (0-200); Estimated Glomerular Filt Rate 48; Glucose 154 mg/dL (70-99); HDL Direct 42 mg/dL (40-60); LDL Cholesterol Calculated 28 mg/dL (<130); Osmolality Calculated 299 mOsm/kg (285-295); Phosphorus 3.6 mg/dL (2.6-4.7); Potassium 4.6 mmol/L (3.5-5.1); Sodium 143 mmol/L (136-145); Thyroid Stimulating Hormone 0.62 uIU/mL (0.36-3.74); Total Protein 6.7 g/dL (6.4-8.2); Triglycerides 85 mg/dL (0-150)
== END 2024-09-05 12:33 | disposition home or self-care (01) ==
LOC: CHSLAB 12:37
PROVIDERS: PCP Nurse Practitioner Family; Visit Provider Internal Medicine Nephrology
DX: N18.2 Chronic kidney disease, stage 2 (mild) (principal); E11.22 Type 2 diabetes mellitus with diabetic chronic kidney disease; Z86.718 Personal history of other venous thrombosis and embolism
CPT/HCPCS: 36415; 80053; 80061; 82570; 83036; 84100; 84156; 84443; 85025

== ENCOUNTER 2024-12-19 10:13 | Outpatient (CLI) | payer MEDICARE, SELFPAY ==
[2024-12-19 11:03] LABS: Hemoglobin A1C 5.5 % (<5.7)
--- OUTSIDE RECORDS SUMMARY | 2024-12-19 11:38 | XMS_ITS | Clinical Summary ---
Author Organization [facility] Address [address] [place] [address] Care Team Providers Care Rubber Mill Operator Name Role Phone Nae Lewis MD Unavailable Unavailable Luis Bowling MD Unavailable Unavailable Pam Kelly MD Unavailable [phone] Oleg Martinez MD Unavailable [phone] Carmelo Bone MD Unavailable Jomar Salgado MD Unavailable [phone] Luis Shanks MD Unavailable [phone] Pcp, [facility]- Primary Care Provider Unavailable Source Comments [facility],non-owned Affiliates and Associated Physician Practices is amultiple site organization consisting of ambulatory clinics and hospital sitesin [place], [place], [place] and [place]. This disclosure is being madepursuant to the Care Everywhere program and may not contain all information available regarding this patient. Last updated 18.[facility] Allergies Active Allergy Reactions Criticality Noted Date Comments Codeine Nausea and/or Vomiting 07/21/2012 Codeine Vomiting 05/15/2020 Morphine Vomiting 03/08/2020 Penicillins 07/21/2012 Penicillins Anaphylaxis High 05/15/2020 Medications * Be aware that medications may not be up to date on this document. Alwaysverify current medications with the patient. vitamin D, cholecalciferol, 2000 UNITS tablet Take 2,000 Units by mouth once daily Active aspirin (ASPIRIN) 81 MG tablet Take 1 tablet by mouth once daily 100 tablet 4 03/24/20 19 Active aspirin-acetaminop hen-caffeine (EXCEDRIN MIGRAINE) 250-250-65 MG tablet Take 2 tablets by mouth as needed for Headache Active nicotine (NICODERM CQ) 21 MG/24HR patchIndications:T obacco abuse Apply 1 patch to skin once daily 30 patch 6 09/04/19 21 Active Additional Information Patient taking differently:1 patch TransdermalPRN, Reported on 10/26/2020 baclofen (LIORESAL) 10 MG tablet Take 1 (one) tablet by mouth 2 times daily as needed May cause drowsiness. 60 tablet 2 11/15/19 21 Active tapentadol CR 12hr (NUCYNTA ER) 100 MG tabletIndications: Lumbar spondylosis,S/P lumbar fusion,Primary osteoarthritis involving multiple joints,Neuropathy Take 1 (one) tablet by mouth every 12 hours DX M47.816 60 tablet 11/15/19 21 Active pregabalin (LYRICA) 150 MG capsule Take 150 mg by mouth 3 times daily 03/05/20 21 Active lisinopril (PRINIVIL; ZESTRIL) 20 MG tabletIndications: Essential hypertension Take 1 (one) tablet by mouth once daily 90 tablet 1 06/17/20 21 Active DULoxetine (CYMBALTA) 60 MG capsuleIndications :Anxiety and depression Take 1 (one) capsule by mouth once daily 90 capsule 1 06/17/20 21 Active vitamin D, ergocalciferol, (DRISDOL) 1.25 MG (37536 UT) capsule Take 1 (one) capsule by mouth every 7 days 12 capsule 1 07/15/20 21 Active atorvastatin (LIPITOR) 80 MG tablet Take 1 (one) tablet by mouth once daily 90 tablet 1 07/15/20 21 Active insulin glargine (Lantus/Semglee) 100 units/mL penIndications:Typ e 2 diabetes mellitus with diabetic polyneuropathy, without long-term current use of insulin ([facility]) Inject 35 (thirty five) Units subcutaneously at bedtime 15 mL 2 08/29/19 22 Active apixaban (ELIQUIS) 5 MG tablet Take 1 (one) tablet by mouth 2 times daily 60 tablet 5 08/29/19 22 Active JANUVIA 100 MG tabletIndications: Type 2 diabetes mellitus with diabetic polyneuropathy, without long-term current use of insulin ([facility]) TAKE 1 TABLET BY MOUTH EVERY DAY 30 tablet 08/01/20 22 Active Active Problems Problem Noted Date Diagnosed Date Anxiety and depression 06/17/2021 Syncope and collapse 05/15/2020 Hyperventilation syndrome 05/15/2020 Medication overuse headache 05/27/2019 Cerebrovascular small vessel disease 05/27/2019 Intractable chronic migraine without aura and without status migrainosus 05/27/2019 Abnormal stress test 03/24/2019 History of hysterectomy for benign disease 03/15 Premature surgical menopause 03/15/2019 detention (current) use of anticoagulants 2018 History of DVT (deep vein thrombosis) 07/26/2018 Vitamin D deficiency 12/05/2016 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 disorder associated with diabetes galindo litus 01/10/2016 Overview (05/02/2021): Marlene Matthew, [employer] TE[employer]IC[employer] Ov 10/26/20 HLD (hyperlipidemia) 01/10/2016 Neuropathy 01/10/2016 Degenerative joint disease involving multiple lyndsey ints 01/10/2016 Chronic low back pain 01/10/2016 Lumbar radiculopathy 01/10/2016 Type 2 diabetes mellitus with diabetic polyneuro lexus 10/16/2015 Overview (05/02/2021): Marlene Matthew, [employer] TECH[employer]IC[employer] 10/26/20 ov Essential hypertension 10/16/2015 Spinal stenosis of lumbar region Resolved Problems Problem Noted Date Diagnosed Date Resolved Date Acute deep vein thrombosis ( DVT) of other vein of lower extremity, unspecified laterality 07/28/2019 12/20/2019 History of chlamydia 03/15/2019 020 detention (current) use of anticoagulants 07/26/2018 10/06/2018 Pre-op testing 05/12/2018 10/06/2018 detention current use of ant icoagulant therapy 08/03/2017 10/06/2018 Overview (11/21/2017): IMO update 11 22 2017 detention current use of anticoagulant 06/20/2016 10/06/2018 Deep vein thrombosis (DVT) o f lower extremity, unspecified chronicity, unspecified laterality, unspecified vein 06/20/2016 10/06/2018 Hypokalemia 06/18/2016 06/26/2016 Acute renal failure 06/16/2016 06/26/20 16 Hyperkalemia 06/16/2016 06/16/2016 Metabolic acidosis 06/16/2016 6 Benign essential hypertension 01/10/2016 05/15/2016 Pain 01/10/2016 05/15/2016 Hyperlipidemia 10/16/2015 05/15/2016 Immunizations Immunization Administration Dates Next Due Sprout Route primary monoval ent 12+ yr 0.3mL Purple cap 06/17/2021,09/11/2020,08/21/2020 HEP B VACCINE, ADULT 3 DOSE 12/18/2016, 6,05/15/2016 INFLUENZA VACCINE 05/24/2019, 7,06/07/2014,2012,05/05/2012 INFLUENZA VACCINE, HIGH-DOSE , QUADR. (FLUZONE HIGH-DOSE QUADRIVALENT; 65Y+), 0.7 ML (HD-IIV4) 06/23/2017 INFLUENZA VACCINE, QUADR. (F LUZONE; FLULAVAL; FLUARIX; AFLURIA QUADRIVALENT; 6MO+), 0.5 ML (IIV4) 06/17/2021,05/04/2018,05/15/2016 PNEUMOCOCCAL PPSV23 01/24/2016 TDAP (7yrs+) 08/19/2016 Zoster Hzv Vacc Recombinant Inj Im 06/17/2021 iNFLUENZA VACCINE, RECOM-CISNEROS, QUADR. (FLUBLOCK QUADRIVALENT; 18Y+) (RIV4) 05/25/2020 Family History Medical History Relation Name Comments Anxiety Disorder Father CAD (Coronary Artery Disease) Father cabg Diabetes Father Hypertension Father Pacemaker Maternal Grandfather Diabetes Maternal Grandmother Hypertension Maternal Grandmother Other Maternal Grandmother feeding tube, throat closed Diabetes Mother Hypercholesterolemia Mother Hypertension Mother Alzheimer's Disease Paternal Grandmother Dementia Paternal Grandmother Relation Name Status Comments Father Maternal Grandfather Maternal Grandmother Mother Paternal Grandmother Social History Tobacco Use Types Packs/Day Years Used Date Smoking Tobacco: Every Day Cigarettes Smokeless Tobacco: Never Tobacco Cessation:Ready to Q uit: Yes; Counseling Given: Yes Comments:08.21.2020-pt states about 3 cigs a day Alcohol Use Standard Drinks/Week Comments Not Currently 0 (1 standard drink = 0.6 oz pur e alcohol) PHQ-2 Answer Date Recorded PHQ2 TOTAL SCORE 2 06/17/2021 Comments No Sex and Gender Information Value Date Recorded Sex Assigned at Not on file Legal Sex Female 9:44 AM OCC THER Gender Identity Not on file Sexual Orientation Not on file 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 Not on file Last Filed Vital Signs Vital Sign Reading Time Taken Comments Blood Pressure 140/79 07/12/2021 9:36 AM OCC THER Pulse 97 07/12/2021 9:36 AM OCC THER Temperature 36.6 C (97.9 F) 05/02/2021 2:16 PM CDT Respiratory Rate 18 11/14/2020 11:35 AM CDT Oxygen Saturation 95% 07/12/2021 9:36 AM OCC THER Inhaled Oxygen Concentration - - Weight 74.8 kg (165 lb) 07/12/2021 9:36 AM OCC THER Height 157.5 cm (5' 2 ) 07/12/2021 9:36 AM OCC THER Body Mass Index 30.18 07/12/2021 9:36 AM OCC THER Plan of Treatment Health Maintenance Due Date Last Done Comments COLOGUARD (AGES 45-75) - COLON CA SCREENING 1970 COLON MONITORING 1970 COLONOSCOPY - COLON CA SCREENING 1970 CT COLONOGRAPHY - COLON CA SCREENING 1970 Colorectal Cancer Screening 1970 FIT - COLON CA SCREENING 1970 FLEX SIG - COLON CA SCREENING 1970 PNEUMOCOCCAL VACCINE 50+ (2 of 2 - PCV) 01/23/2017 01/24/2016 ZOSTER VACCINE (2 of 2) 08/12/2021 06/17/2021 DIABETES-HGB A1C 12/16/2021 06/17/2021, , 03/07/2020, Additional history exists DIABETES-FOOT EXAM WITH MONOFILAMENT 06/17/2022 06/17/2021, 01/25/2018, 11/30/2017, Additional history exists DIABETES-SERUM CREATININE 07/12/20222020, 05/16/2020, 05/15/2020, Additional history exists MAMMOGRAM 10/26/2022 10/26/2020, 01/27/2017 DIABETES RETINOPATHY SCREENING 02/26/2023 02/26/2021, 2020, 01/06/2019, Additional history exists COVID-19 VACCINE ( season) 2024 06/17/2021, 09/11/2020, 08/21/2020 DEPRESSION SCREENING 08/24/2024 DIABETES - URINE PROTEIN SCREENING 08/24/2024 08/21/2020, 01/04/2018, 10/29/2016, Additional history exists INFLUENZA VACCINE (Season Ended) 2025 06/17/2021, 05/25/2020, 05/24/2019, Additional history exists DTAP/TDAP/TD VACCINES (2 - Td or Tdap) 08/19/2026 08/19/2016 HEPATITIS C SCREENING Completed 06/16/2016, 011 HIV SCREENING Completed 06/16/2016, 01/23/2011 HEPATITIS B VACCINE Completed 12/18/2016, 08/19/2016, 05/15/2016 HIB VACCINE Aged Out No longer eligi ble based on patient's age to complete this topic HPV VACCINE Aged Out No longer eligi ble based on patient's age to complete this topic MENINGOCOCCAL (Group B) VACCINE SHARED DECISION-MAKING Aged Out No longer eligible based on patient's age to complete this topic MENINGOCOCCAL GROUPS A/C/Y/W VACCINE Aged Out No longer eligible based on patient's age to complete this topic Goals Goal Patient Goal Type Associated Problems Recent Progress Patient-Stated? Author Right level of care at the right time. General Yes Iman Jean RN Note: Beatrice will call the doctor if she has an increased temperature (greater than 101), unrelieved pain, symptoms that are not relieved or worsening, and side effects of medications. Progress toward goal attainment: 0% : Ongoing / No progress Barriers to goal attainment: None identified Medical Devices Implanted Type Area Structures Mechanic Device Identifier Shelf Expiration Date Model / Serial / Lot Proclaim Elite 5 W/Ptnt Cntrl Implanted:Qty: 1 on 10/27/2018 by Carmelo Bone MD at [facility] Back [employer] 06/15/2020 [id number] / / Description:PROCLAIM ELITE I MPLANTABLE PULSE GENERATOR Kit Nrstm 60cm Octrode Perc [address] - [id number] Implanted:Qty: 1 on 10/27/2018 by Carmelo Bone MD at [facility] Back [employer] 05/09/2020 [id number] / [id number] / [place] Naik-Lck Implanted:Qty: 2 on 10/27/2018 by Carmelo Bone MD at [facility] Back 09/07/2020 1192 / / [id number] Description:NAIK LOCK Kit Nrstm 60cm Octrode Perc [address] - [id number] Implanted:Qty: 1 on 10/27/2018 by Carmelo Bone MD at [facility] Back [employer] 05/09/2020 [id number] / [id number] / Procedures Procedure Name Priority Date/Time Associated Diagnosis Comments COMPREHENSIVE METABOLIC PANEL Routine 07/12/2021 9:23 AM OCC THER Essential hypertension Pure hypercholesterolemia HEMOGLOBIN A1C - POINT OF CARE (AMB) Routine 06/17/2021 11:41 AM CDT Type 2 diabetes mellitus with diabetic polyneuropathy, without long-term current use of insulin DIABETES EYE EXAM Routine 02/26/2021 MAMMO BILAT SCREENING Routine 10/26/2020 10:46 AM OCC THER Encounter for screening mammogram for breast cancer MICROALB/CREAT URINE - POINT OF CARE (AMB) Routine 08/21/2020 11:18 AM OCC THER Type 2 diabetes mellitus with diabetic polyneuropathy, without long-term current use of insulin DIABETES FOOT EXAM Routine 01/25/2018 HEPATITIS C ANTIBODY Routine 06/16/2016 11:27 AM CDT HIV-1 HIV-2 ANTIBODY + HIV P24 AG PANEL STAT 06/16/2016 11:27 AM CDT from Last 3 Months or Most Recently Relevant to Health Maintenance Results * (ABNORMAL) COMPREHENSIVE METABOLIC PANEL (07/12/2021 9:23 AM OCC THER) [facility] Glucose 221(H) 70 - 105 mg/dL [facility] ACCOUNT BILL BUN 12 9.8 - 20.1 mg/dL [facility] ACCOUNT BILL Creatinine 1.10 0.57 - 1.11 mg/dL [facility] ACCOUNT BILL eGFR by MDRD 52(L) >60 mL/min/1.7 3m2 [facility] ACCOUNT BILL eGFR by MDRD >60 >60 mL/min/1.7 3m2 [facility] ACCOUNT BILL Sodium 136 136 - 145 mmol/L [facility] ACCOUNT BILL Potassium 4.2 3.5 - 5.1 mmol/L [facility] ACCOUNT BILL Chloride 98 98 - 107 mmol/L [facility] ACCOUNT BILL CO2 27 23 - 31 mmol/L [facility] ACCOUNT BILL Calcium 9.2 8.4 - 10.4 mg/dL [facility] ACCOUNT BILL Protein Total 7.1 6.4 - 8.3 gm/dL [facility] ACCOUNT BILL Albumin 4.2 3.5 - 5.2 gm/dL [facility] ACCOUNT BILL Bilirubin Total 0.2 0.2 - 1.2 mg/dL [facility] ACCOUNT BILL Alkaline Phosphatase 112 40 - 150 U/L [facility] ACCOUNT BILL AST 19 5 - 34 U/L [facility] ACCOUNT BILL ALT 25 0 - 61 U/L [facility] ACCOUNT BILL Comment:FASTING Blood BLOOD SPECIMEN / Unknown 07/12/2021 9:23 AM OCC THER 07/12/2021 Narrative Resulting Agency Comment Lab Testing performed at: [address] [id number] us Nae Lewis MD LAB - CHEMISTRY ORDERABLES Final Result [facility] ACCOUNT BILL [address] [place] [address] * HEMOGLOBIN A1C - POINT OF CARE (HgbA1C) (06/17/2021 11:41 AM CDT) [facility] Hemoglobin A1c POCT 7.2 % [facility] Expiration Date 20230218 [facility] Lot # [id number] [facility] 4[facility] QC Verified Yes Yes [facility] Blood BLOOD SPECIMEN / Unknown 06/17/2021 11:41 AM CDT us Nae Lewis MD LAB - POINT OF CARE ORDERABLES F inal Result [facility] [address], [facility] [address] [place] [address], [facility] [phone] * DIABETES EYE EXAM (02/26/2021) us Scanned Document HEALTH MAINTENANCE Final Result * MAMMO BILAT SCREENING (10/26/2020 10:46 AM OCC THER) Anatomical Region Laterality Modality Breast Bilateral Mammography 10/26/2020 2:20 PM OCC THER Impressions 10/26/2020 2:20 PM OCC THER No mammographic evidence of malignancy in either breast. ASSESSMENT: BIRADS Category 1: Negative mammogram. RECOMMENDATION: Bilateral screening mammogram in one year. Thank you for allowing us to participate in the care of your patient. *Reading Radiologist: Joselyn Thorpe on 10/26/2020 at 2:20 PM Narrative 10/26/2020 2:20 PM OCC THER EXAMINATION: Digital screening mammogram on 10/26/2020 10:26 AM. Low-dose full-field digital breast tomosynthesis examination was performed with synthetic 2D images and 3D acquisitions. Computer assisted detection was utilized. PRIOR: 2016 BREAST PARENCHYMAL DENSITY: The breasts are almost entirely fatty. RISK ASSESSMENT CALCULATION: Risk assessment not performed due to COVID precautions FINDINGS: No suspicious masses, areas of architectural distortion or microcalcifications are evident on synthetic 2D mammogram or tomosynthesis images. There has been no significant interval change since the prior examination. us Nae Lewis MD MAMMO ORDERABLES Final Result * MICROALB/CREAT URINE - POINT OF CARE (AMB) (08/21/2020 11:18 AM OCC THER) QC Verified Yes Yes [facility] Microalbumin 30 mg/L [facility] Creatinine POCT 50 mg/dL [facility] Microalbumin/Crea tinine Ratio 30-300 mg/g [facility] Lot # [id number] [facility] Expiration Date 10.26.[address] [facility] [address] [facility] Urine URINE / Unknown 08/21/2020 1 1:18 AM OCC THER Nae Lewis MD LAB - POINT OF CARE ORDERABLES F inal Result [facility] [address], [facility] [address] [place] [address], [facility] [phone] * DIABETES FOOT EXAM (01/25/2018) Royce Reynaga DPM HEALTH MAINTENANCE Final Resu lt * HIV-1 HIV-2 ANTIBODY + HIV P24 AG PANEL (06/16/2016 11:27 AM CDT) [facility] HIV1/2 Ab + P24 Ag Non Reactive Non Reactive 06/16/2016 5:43 PM CDT [facility] Blood BLOOD SPECIMEN / Unknown Venipuncture / Unknown 06/16/2016 11:27 AM CDT 06/16/2016 11:43 AM CDT Narrative [facility] - 06/16/2016 5:43 PM CDT No Laboratory evidence of HIV infection. Sowmya Wagoner MD LAB - CHEMISTRY ORDERABLES Fi nal Result Performing Organization Address City/[facility]/ZIP Co de Phone Number [facility] [place] [address] * HEPATITIS C ANTIBODY (06/16/2016 11:27 AM CDT) Pathologist [facility] HCV Antibody Screen Non Reactive Non Reactive 06/16/2016 3:17 PM CDT [facility] HCV S/C Ratio 0.06 0.00 - 0.79 06/16/2016 3:17 PM CDT [facility] Comment: Zbpxnc-fi-sbsyqd ratio (S/CO) <0.80: Non Reactive Blood BLOOD SPECIMEN / Unknown Venipuncture / Unknown 06/16/2016 11:27 AM CDT 06/16/2016 2:02 PM CDT Narrative [facility] - 06/16/2016 3:17 PM CDT Non Reactive - Antibodies to Hepatitis C virus (HCV) were not detected, result does not exclude early acute HCV infection. us Sowmya Wagoner MD LAB - CHEMISTRY ORDERABLES nal Result [facility] [address] [place] [address] from Last 3 Months or Most Recently Relevant to Health Maintenance Insurance HEALTH Advance Directives * Full Code (Latest Code Status on File) Date Activated Date Inactivated Comments 05/15/2020 5:25 PM 05/17/2020 2:40 PM * Full Code Date Activated Date Inactivated Comments 05/15/2020 5:25 PM 05/15/2020 5:25 PM * Full Code Date Activated Date Inactivated Comments 06/14/2016 4:27 PM 06/20/2016 5:02 PM Care Teams Rubber Mill Operator Relationship Specialty Start Date End [facility] - [facility] 06/23/24 Nae Lewis MD Internal Medicine 05/16/20 Luis Bowling MD Ophthalmology 03/19/17 Pam Kelly MD [address] [facility] [address] [place] [address] Oncology 03/19/17 Oleg Martinez MD [address] [facility] [address] [place] [id number] Nephrology 03/19/17 Carmelo Bone MD [address] [facility] [address] [place] [address] Anesthesiology 05/04/18 Jomar Salgado MD [address] [facility] [address] [place] [address] Cardiovascular Disease 03/24/19 Luis Shanks MD [address] [place] [id number] Anesthesiology 10/26/20
--- OUTSIDE RECORDS SUMMARY | 2024-12-19 11:38 | XMS_ITS | Clinical Summary ---
Author Organization [facility] Address [address] [place] [address] Phone Care Team Providers Care Life Enrichment Assistant Name Role Phone TOMER LÓPEZ APN Primary Care Provider [phone] Reason for Visit and Chief Complaint The Chief Complaint is: 3 month follow up Problems Includes: Problems addressed during this encounter and other active Problems All Visits Onset Date Resolved Date Provider Condition S tatus Diabetes Mellitus Unknown PAKO SHIN COMMERCIAL PAINTER-FPA, INSURANCE SALES MANAGER-BC Active Last Documented On 2 10:27AM ; [facility] Risk: Dvt/pulmonary Embolism Unknown PAKO SHIN COMMERCIAL PAINTER-FPA, INSURANCE SALES MANAGER-BC Active Last Documented On 2 10:27AM ; [facility] Plan of Treatment Patient was seen today for 4 chronic unstable conditions of the lumbosacral spine, and central nervous system.Without treatment patient is at risk for significant functional limitations resulting in diminished quality of life and impaired age appropriate activities of daily living. Multiple documents have been reviewed in combination with today's evaluation including imaging studies, outside provider notes, laboratory data, patient self-report questionnaires, and [place] prescription monitoring database entries. Significant social barriers exist to compliance resulting in limited prognosis. Decision to proceed with interventional therapies was made at the time of today's visit. - Last Documented On 01/13/2024 9:02AM ; [facility] Instructions to patient Intervention and counseling on cessation of tobacco use : Patient recieved smoking cessation handout Last Documented On 1:53PM ; [facility] Education and Decision Aids were provided during visit for: Pill Count: 16 Nucynta Last Documented On 4 2:10PM ; [facility] Assessments Includes: Assessments from this encounter Findings - [M46.1 - Sacroiliitis, not elsewhere classified] Sacroiliitis - Last Documented On 01/13/2024 9:02AM ; [facility] - [M25.559 - Pain in unspecified hip] Hip pain - Last Documented On 01/13/2024 9:02AM ; [facility] - [M54.9 - Dorsalgia, unspecified] DORSALGIA - Last Documented On 01/13/2024 9:02AM ; [facility] - [M47.816 - Spondylosis without myelopathy or radiculopathy, lumbar region] Spondylosis - Last Documented On 01/13/2024 9:02AM ; [facility] - [Z98.1 - Arthrodesis status] Postsurgical arthrodesis status - Last Documented On 01/13/2024 9:02AM ; [facility] - [G62.9 - Polyneuropathy, unspecified] Polyneuropathy - Last Documented On 01/13/2024 9:02AM ; [facility] - [M54.16 - Radiculopathy, lumbar region] Lumbar radiculopathy - Last Documented On 01/13/2024 9:02AM ; [facility] - [G89.4 - Chronic pain syndrome] Chronic pain syndrome - Last Documented On 01/13/2024 9:02AM ; [facility] - [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 - Last Documented On 01/13/2024 9:02AM ; [facility] Instructions Includes: Instructions from this encounter Instructions to patient Intervention and counseling on cessation of tobacco use : Patient recieved smoking cessation handout Last Documented On 4 1:53PM ; [facility] Education and Decision Aids were provided during visit for: Pill Count: 16 Nucynta Last Documented On 4 2:10PM ; [facility] Medical Equipment - Implanted Devices Includes: Current Devices No Medical Equipment Recorded Medications Includes: Medications discussed during this encounter and other current Medications Discontinued / Stopped on this date PAKO SHIN COMMERCIAL PAINTER-FPA, INSURANCE SALES MANAGER-BC on 08/06/2023 Metanx [id number] MG Oral Capsule Provider: JESE GREWAL Diagnosis: Type 2 diabetes mellitus with diabetic neuropathy, unsp Last Documented On 4 2:18PM By PAKO SAWANT ; [facility] Trulicity 0.75 MG/0.5ML Subcutaneous Solution Pen-inje ctor Provider: Diagnosis: Last Documented On 4 2:08PM By PAKO SAWANT ; [facility] New / Renewed during this visit JESE GREWAL on 2024 Alpha-Lipoic Acid 600 MG Oral Capsule Provider: JESE GREWAL 90 day supply: 90 capsule, 0 refills Diagnosis: Polyneuropathy, unspecified 1 capsule daily Pharmacy: [facility]/pharmacy #[id number], [address] - Last Documented On 4 2:30PM By PAKO SAWANT ; [facility] Baclofen 10 MG Oral Tablet Provider: JESE ALFORD 30 day supply: 60 tablet, 2 refills Diagnosis: Dorsalgia, unspecified TAKE 1 TABLET BY MOUTH TWICE A DAY Pharmacy: [facility]/pharmacy #[id number], [id number] - Last Documented On 4 2:30PM By PAKO SAWANT ; [facility] Pregabalin 200 MG Oral Capsule Provider: JESE GREWAL 30 day supply: 60 capsule, 2 refills Diagnosis: Polyneuropathy, unspecified TAKE 1 CAPSULE BY MOUTH TWICE A DAY Pharmacy: [facility]/pharmacy #[id number], [address] - Last Documented On 4 2:30PM By PAKO SAWANT ; [facility] Current Medications (continue as prescribed) Nucynta ER 150 MG Oral Table t Extended Release 12 Hour 01/25/2024 Provider: JESE GREWAL Diagnosis: One tablet twice a day Last Documented On 4 2:54PM By PAKO SAWANT ; [facility] Ozempic (0.25 or 0.5 MG/DOSE ) 2 MG/3ML Subcutaneous Solution Pen-injector 01/04/2024 Provider: JOE EWING DO Diagnosis: Last Documented On 4 2:26PM By PAKO SAWANT ; [facility] QUEtiapine Fumarate 50 MG Oral Tablet 08/04/2023 Pro vider: Diagnosis: Last Documented On 3 1:22PM By PAKO SAWANT ; [facility] Gabapentin 100 MG Oral Capsule 07/20/2023 Provider: Diagnosis: Last Documented On 3 1:22PM By PAKO SAWANT ; [facility] LORazepam 0.5 MG Oral Tablet 07/20/2023 Provider: Diagnosis: Last Documented On 3 1:22PM By PAKO SAWANT ; [facility] Prazosin HCl 2 MG Oral Capsule 06/16/2023 Provider: Diagnosis: Last Documented On 3 1:22PM By PAKO SAWANT ; [facility] traZODone HCl 50 MG Oral Tablet 06/15/2023 Provider: Diagnosis: Last Documented On 3 1:22PM By PAKO SAWANT ; [facility] Narcan 4 MG/0.1ML Nasal Liquid 05/07/2023 Provider: JESE GREWAL 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 1 spray intranasally for yris pected overdose Last Documented On 3 1:22PM By PAKO SAWANT ; [facility] Sertraline HCl 100 MG Oral Tablet 05/04/2023 Provide r: Diagnosis: Last Documented On 3 10:58AM By PAKO SAWANT ; [facility] Jardiance 10 MG Oral Tablet 11/28/2021 Provider: Diagnosis: Last Documented On 2 10:54AM By PAKO MCKINNEY- ; [facility] Eliquis 5 MG Oral Tablet 11/28/2021 Provider: Diagnosis: Last Documented On 2 10:54AM By PAKO WINSLOWP-KARI ; [facility] Lantus SoloStar 100 UNIT/ML Subcutaneous Solutio n Pen-injector 11/11/2021 Provider: Diagnosis: 40 units once a day. Last Documented On 2 10:54AM By PAKO WINSLOWP- ; [facility] Atorvastatin Calcium 80 MG Oral Tablet 10/02/2021 Pr ovider: Diagnosis: Last Documented On 2 10:54AM By PAKO WINSLOWPJOHANA ; [facility] Past Medications on file Pregabalin 75 MG Oral Capsule 12/05/2021 - 12/11/2021 Provider: PAKO HARRIS INSURANCE SALES MANAGER- Diagnosis: Polyneuropathy, unspecified take 1 capsule at night for 3 days then twice daily for 3 days Last Documented On 2 10:54AM By PAKO SHIN [facility]- ; [facility] Medications Administered Includes: Administered Medications from this encounter No Administered Medications Recorded Vital Signs Includes: Vital Signs from this encounter Vital Name 2024 02:12P Blood Pressure Sitting R 110/64 BP Cuff Size Regular Pulse Rate-Sitting (bpm) 72 Temp-Temporal 97.2 Height (in) 62 Weight (lb) 168 Body Mass Index 30.7 Body Surface Area 1.8 Pain Level 8 Oxygen Saturation (%) 97 Last Documented: On 2024 2:13PM ; [facility] Results Includes: Results discussed during this encounter No Results Recorded For Specified Dates History of Present Illness Includes: History of Present Illness from this encounter HPI PHQ-9 Score: 17 Date:01/29/2023 BPI Score: Date: OSWESTRY Score: 72% Date:05/07/2023 Soap 18 Moderate 14 Moderate Date 10/02/2022 Pain Location: Lumbar back Quality: Aches, sharp, numb, tingles, burning. Radiation: Down both legs to feet. Severity: Timin Associated Sx: Nausea Aggravating Factors:Weather, activity. Alleviating Factors Medications, Spinal stimulator,, heat and ice. Past Tx: Spinal stimulator. Pain Management, physical therapy, injections, L2-L4 RFA 08/01/2022 90% better, SI Injections Bilat 10/22/22 not helpful, BLT L4-5 TFEI 12/26/2022 75% 2-3 days MONTEZ TING is a 53 year old female. - Allergy list reviewed - Allergy list reviewed - Problem list reviewed - Medication reconciliation performed - Medication list reviewed - Primary Care Provider: - Prescription Drug Monitoring Program website checked. 12/21/2023 - How much of the medication are you taking a day? BID - How much of the medication are you taking a day? Twice a day - Last dose of medication? This morning - Vertigo - Last drug screen appropriate 10/05/2023 Discussion: FU for medication management for chronic back pain and neuropathy. Doing well. No new complaints. She finished about 3 months of Metanx but then stopped it due to cost. I advised her it can take up to 6 months to start working but she declines for now due to cost. Still is utilizing her SCS. [place] Rx monitoring and UDS have been consistent. She is not ready to repeat any interventional procedures at this time. We discussed adding Alpha Lipoic acid to see if this could benefit her neuropathy symptoms. PRIOR VISIT: Routine FU for chronic low back pain and neuropathy. Since increasing the Nucynta her leg/foot pain is much better and back pain is a little bit better. Denies side effects with increased dose. Her diabetes is well controlled, A1c is down to 6.4. today we discussed the food supplement, Metanx for her diabetic neuropathy as a possible additional treatment option. She understands this is not a pain medication and it will take time likely before she starts seeing a benefit from the medication. She also understands this is not covered by insurance. She would like to try it. [place] Rx monitoring and UDS have been consistent. Pain medication allows her increased function and overall improves quality of life. PRIOR VISIT: Here for routine FU for chronic low back pain and neuropathy. Current medication regimen is only minimally helping. She states pain is around 8/10 even with medication. She can not lift a 10lb back of potatoes or her niece. She feels like she can not do much because of her low back pain and the neuropathy. Interventional procedures for the low back have failed. She does not feel like she gets much relief from her neuropathy with the SCS. She added Tylenol 3x daily but it has not helped at all. She tries to do home stretches and exercises but this also makes pain worse. [place] Rx monitoring and [place] have been consistent. PRIOR VISIT 10/02/22: Patient here today for follow-up after undergoing bilateral L2, L3, L4 thermal radiofrequency ablation. She is very pleased with her results. She reports more than 90% improvement of her upper back pain. Unfortunately, she has had some increased lower back, buttock, and bilateral hip pain. She states this is worse with trying to go from a sitting to a standing position or going up steps. Exam reveals likely SI joint pathology. We discussed SI joint steroid injections and she would like to proceed. She feels like her neuropathy is getting worse in her legs and now feels like it is maybe up to her left knee. We discussed increasing Pregabalin to 200mg two times daily to see if this helps. Last A1c was improved further to 6.4. FIRST VISIT 12/05/21: Patient presents today for chronic low back pain and neuropathy. She previously saw pain management in [facility], however they no longer take her insurance. She has a [facility] spinal cord stimulator that she reports has helped minimally with her pain maybe 40%. She was on Nucynta 100 mg twice a day and Lyrica 150 mg three times daily until being discharged from her previous pain management clinic. She last took these medications about two months ago. She states the last two months have been very difficult for her. She has not been able to function in order to do daily tasks. She states simple housework such as washing dishes, laundry, or picking up causes her a lot of pain. She has been doing a lot of resting. She has not been able to do many social activities because of her pain. No recent imaging on file. She is status post lumbar fusion L5-S1 in 2010. A transforaminal epidural steroid injection left L3 was done in 2018. She reports no pain relief from this injection. She reports previous history of physical therapy multiple times. The last time she did physical therapy approximately 1 to 2 years ago her pain was increased exponentially and she was unable to tolerate it so it was stopped early. She continues Duloxetine daily for her chronic pain and Baclofen. She admits her diabetes has not always been well-controlled. She has been a diabetic for about seven years. She does not think she has had a TSH or B12 completed in the past but is unsure. She said that she was diagnosed with neuropathy before she knew she had diabetes. She describes her pain to her lower legs as piercing, burning, pins and needles, and feels like someone is stabbing her feet. She can barely tolerate mild touch. She does not seem to have radicular pain, her back pain is mostly axial in nature with some possible SI joint pathology. Imaging: All relevant imaging available was personally reviewed with the patient today with the following tests and results noted: CT scan lumbar spine 12/12/2021 Impression: 1. Severe lumbar spondylosis. 2. Disc replacement at L4-5. Anterior and posterior fusion procedures at L5-S1. 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 Social History Description Last Updated Single 12/05/2021 Last Documented On 4 1:53PM ; [facility] Current smoker 12/05/2021 Last Documented On 4 1:53PM ; [facility] Smoking Status Unknown Procedures and Surgical History Includes: Procedures from this encounter Procedures Code Diagnosis Performing Provider Service L ocation Service Date intervention and counseling on cessation of tobacco use : Patient recieved smoking cessation handout 4000F Last Documented On 4 1:53PM ; [facility] use of tobacco assessment performed 1000F Last Documented On 4 1:53PM ; [facility] patient screened for future fall risk: documentation of any fall with injury in past year 1100F Last Documented On 4 1:53PM ; [facility] review of medications documented 1160F Last Documented On 4 1:53PM ; [facility] screening for adult depression: impressi on and score Last Documented On 4 1:53PM ; [facility] screening for adult depression: impressi on and score 15 Last Documented On 4 1:53PM ; [facility] screening for adult depression: impressi on and score 0 Last Documented On 4 1:53PM ; [facility] standardized depression screening: posit mattie for symptoms Last Documented On 4 1:53PM ; [facility] Clinical summary provided to patient Last Documented On 4 1:53PM ; [facility] Surgical History Last Updated Prior surgery L5-S1 11/2010 ~Spinal Cord Stimulator 11/201812/05/2021 Last Documented On 4 1:53PM ; [facility] Medical History Includes: Medical History addressed during this encounter Description Last Updated Has a fear of falling. 2024 Last Documented On 4 9:02AM ; [facility] Has had a fall in the last 12 months. Last Documented On 4 1:53PM ; [facility] Kidney Failure, neuropathy, osteoarthrit is, 12/05/2021 Last Documented On 4 1:53PM ; [facility] Diabetes 12/05/2021 Last Documented On 4 1:53PM ; [facility] History of arthritis 12/05/2021 Last Documented On 4 1:53PM ; [facility] Surgery 12/05/2021 Last Documented On 4 1:53PM ; [facility] Family History Includes: Family History addressed during this encounter Description Last Updated Family history of bleeding problems 11/22 Last Documented On 4 1:53PM ; [facility] Family history of kidney disease 022 Last Documented On 4 1:53PM ; [facility] Family history of heart disease 12/06/19 22 Last Documented On 4 1:53PM ; [facility] Review of Systems Includes: Review of Systems from this encounter Systemic: No fatigue. No fever, no chills, no recent weight change, and no recent weight loss. Head: No head symptoms other then noted. Neck: No neck pain. Otolaryngeal: No otolaryngeal symptoms other than noted. Cardiovascular: No chest pain or discomfort. Pulmonary: No pulmonary symptoms other than noted and no dyspnea. Gastrointestinal: No difficulty chewing and no dysphagia. Genitourinary: No genitourinary symptoms other than noted. Endocrine: No endocrine symptoms other than noted. Hematologic: No easy bleeding and no tendency for easy bruising. Musculoskeletal: Musculoskeletal symptoms Back pain, lower leg pain. Neurological: No neurological symptoms other than noted, no dizziness, no vertigo, no fainting passing out with needles or medical procedures, no fainting, and no motor disturbances. Sensory disturbances neuropathy lower legs. Psychological: No sleep apnea. Skin: No skin symptoms other than noted. Mental Status Includes: Mental Status from this encounter No Mental Status Recorded Functional Status Includes: Functional Status from this encounter No Functional Status Recorded Physical Exam Includes: Physical Exam from this encounter Allergies Includes: Active Allergies Substance Type Reaction Onset Date Resolved Date Statu s Morphine Derivatives Allergy 12/05/2021 Active Last Documented On 4 3:31PM ; [facility] Codeine and Related Allergy 12/05/2021 Active Last Documented On 4 3:31PM ; [facility] Encounters Encounter Provider Location Date Check-In Time Check-Out Time Diagnosis PAIN MANAGEMENT FOLLOW UP PAKO HARRIS, FAYE-KARI [facility] 01/12/20 24 1:53PM 2:43PM Polyneuropathy, Chronic Pain Syndrome,Sacroi liitis,Spondylo sis,Orthopedics Postsurgical Arthrodesis Status,Lumbar Radiculopathy,H ip Pain, Unspecified,Benjamin g Term Use of Opiate Analgesic,Dorsa lgia Insurance Includes: Active Insurance Policies Plan Name Member ID Group # Subscriber Relationship Effect mattie Dates 1 - MEDICARE PART A CLAIMS/NGS [id number] MONTEZ Olivas 2 - MEDICAID [place] MEDICARE SECOND [id number] MONTEZ Olivas Clinical Notes Includes: Clinical Notes from this encounter * Progress note Date Encounter Last Documented by 2024 PAIN MANAGEMENT FOLLOW UP Last d ocumented on 01/13/2024; 9:02 AM, PAKO HARRIS, JESE; [facility] Active Problems & Conditions - Diabetes Mellitus - Risk: Dvt/pulmonary Embolism Chief Complaint The Chief Complaint is: 3 month follow up. History of Present Illness PHQ-9 Score: 17 Date:01/29/2023 BPI Score: Date: OSWESTRY Score: 72% Date:05/07/2023 Soap 18 Moderate 14 Moderate Date 10/02/2022 Pain Location: Lumbar back Quality: Aches, sharp, numb, tingles, burning. Radiation: Down both legs to feet. Severity: Timin Associated Sx: Nausea Aggravating Factors:Weather, activity. Alleviating Factors Medications, Spinal stimulator,, heat and ice. Past Tx: Spinal stimulator. Pain Management, physical therapy, injections, L2-L4 RFA 08/01/2022 90% better, SI Injections Bilat 10/22/22 not helpful, BLT L4-5 TFEI 12/26/2022 75% 2-3 days MONTEZ TING is a 53 year old female. - Allergy list reviewed - Allergy list reviewed - Problem list reviewed - Medication reconciliation performed - Medication list reviewed - Primary Care Provider: - Prescription Drug Monitoring Program website checked. 12/21/2023 - How much of the medication are you taking a day? BID - How much of the medication are you taking a day? Twice a day - Last dose of medication? This morning - Vertigo - Last drug screen appropriate 10/05/2023 Discussion: FU for medication management for chronic back pain and neuropathy. Doing well. No new complaints. She finished about 3 months of Metanx but then stopped it due to cost. I advised her it can take up to 6 months to start working but she declines for now due to cost. Still is utilizing her SCS. [place] Rx monitoring and UDS have been consistent. She is not ready to repeat any interventional procedures at this time. We discussed adding Alpha Lipoic acid to see if this could benefit her neuropathy symptoms. PRIOR VISIT: Routine FU for chronic low back pain and neuropathy. Since increasing the Nucynta her leg/foot pain is much better and back pain is a little bit better. Denies side effects with increased dose. Her diabetes is well controlled, A1c is down to 6.4. today we discussed the food supplement, Metanx for her diabetic neuropathy as a possible additional treatment option. She understands this is not a pain medication and it will take time likely before she starts seeing a benefit from the medication. She also understands this is not covered by insurance. She would like to try it. [place] Rx monitoring and UDS have been consistent. Pain medication allows her increased function and overall improves quality of life. PRIOR VISIT: Here for routine FU for chronic low back pain and neuropathy. Current medication regimen is only minimally helping. She states pain is around 8/10 even with medication. She can not lift a 10lb back of potatoes or her niece. She feels like she can not do much because of her low back pain and the neuropathy. Interventional procedures for the low back have failed. She does not feel like she gets much relief from her neuropathy with the SCS. She added Tylenol 3x daily but it has not helped at all. She tries to do home stretches and exercises but this also makes pain worse. [place] monitoring and [place] have been consistent. PRIOR VISIT 10/02/22: Patient here today for follow-up after undergoing bilateral L2, L3, L4 thermal radiofrequency ablation. She is very pleased with her results. She reports more than 90% improvement of her upper back pain. Unfortunately, she has had some increased lower back, buttock, and bilateral hip pain. She states this is worse with trying to go from a sitting to a standing position or going up steps. Exam reveals likely SI joint pathology. We discussed SI joint steroid injections and she would like to proceed. She feels like her neuropathy is getting worse in her legs and now feels like it is maybe up to her left knee. We discussed increasing Pregabalin to 200mg two times daily to see if this helps. Last A1c was improved further to 6.4. FIRST VISIT 12/05/21: Patient presents today for chronic low back pain and neuropathy. She previously saw pain management in [facility], however they no longer take her insurance. She has a [facility] spinal cord stimulator that she reports has helped minimally with her pain maybe 40%. She was on Nucynta 100 mg twice a day and Lyrica 150 mg three times daily until being discharged from her previous pain management clinic. She last took these medications about two months ago. She states the last two months have been very difficult for her. She has not been able to function in order to do daily tasks. She states simple housework such as washing dishes, laundry, or picking up causes her a lot of pain. She has been doing a lot of resting. She has not been able to do many social activities because of her pain. No recent imaging on file. She is status post lumbar fusion L5-S1 in 2010. A transforaminal epidural steroid injection left L3 was done in 2018. She reports no pain relief from this injection. She reports previous history of physical therapy multiple times. The last time she did physical therapy approximately 1 to 2 years ago her pain was increased exponentially and she was unable to tolerate it so it was stopped early. She continues Duloxetine daily for her chronic pain and Baclofen. She admits her diabetes has not always been well-controlled. She has been a diabetic for about seven years. She does not think she has had a TSH or B12 completed in the past but is unsure. She said that she was diagnosed with neuropathy before she knew she had diabetes. She describes her pain to her lower legs as piercing, burning, pins and needles, and feels like someone is stabbing her feet. She can barely tolerate mild touch. She does not seem to have radicular pain, her back pain is mostly axial in nature with some possible SI joint pathology. Imaging: All relevant imaging available was personally reviewed with the patient today with the following tests and results noted: CT scan lumbar spine 12/12/2021 Impression: 1. Severe lumbar spondylosis. 2. Disc replacement at L4-5. Anterior and posterior fusion procedures at L5-S1. 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 Current Medication - Atorvastatin Calcium 80 MG Oral Tablet One tablet daily 90 days, 0 refills - Baclofen 10 MG Oral Tablet TAKE 1 TABLET BY MOUTH TWICE A DAY, 30 days, 2 refills - Eliquis 5 MG Oral Tablet One tablet twice a day 30 days, 0 refills - Gabapentin 100 MG Oral Capsule One tablet three times a day 30 days, 0 refills - Jardiance 10 MG Oral Tablet One tablet daily 30 days, 0 refills - Lantus SoloStar 100 UNIT/ML Subcutaneous Solution Pen-injector as directed 40 units once a day., 37 days, 0 refills - LORazepam 0.5 MG Oral Tablet One tablet twice a day 5 days, 0 refills - Narcan 4 MG/0.1ML Nasal Liquid 1 spray intranasally for suspected overdose, 30 days, 0 refills - Nucynta ER 150 MG Oral Tablet Extended Release 12 Hour One tablet twice a day, 30 days, 0 refills - Ozempic (0.25 or 0.5 MG/DOSE) 2 MG/3ML Subcutaneous Solution Pen-injector 28 days, 0 refills - Prazosin HCl 2 MG Oral Capsule 1 capsule daily 90 days, 0 refills - Pregabalin 200 MG Oral Capsule TAKE 1 CAPSULE BY MOUTH TWICE A DAY, 30 days, 2 refills - QUEtiapine Fumarate 50 MG Oral Tablet One tablet daily 30 days, 0 refills - Sertraline HCl 100 MG Oral Tablet One tablet daily 30 days, 0 refills - traZODone HCl 50 MG Oral Tablet One tablet daily 90 days, 0 refills Past Medical/Surgical History Reported: Surgery. Medical: Diabetes. Surgical / Procedural: Prior surgery L5-S1 11/2010 Spinal Cord Stimulator 11/2018. Physical Trauma: Has had a fall in the last 12 months. Has a fear of falling. Diagnoses: Arthritis Kidney Failure, neuropathy, osteoarthritis, Social History Tobacco use: Current smoker. Marital: Single. Allergies - Codeine and Related - Morphine Derivatives Family History Heart disease Bleeding problems Kidney disease Review Of Systems Systemic: No fatigue. No fever, no chills, no recent weight change, and no recent weight loss. Head: No head symptoms other then noted. Neck: No neck pain. Otolaryngeal: No otolaryngeal symptoms other than noted. Cardiovascular: No chest pain or discomfort. Pulmonary: No pulmonary symptoms other than noted and no dyspnea. Gastrointestinal: No difficulty chewing and no dysphagia. Genitourinary: No genitourinary symptoms other than noted. Endocrine: No endocrine symptoms other than noted. Hematologic: No easy bleeding and no tendency for easy bruising. Musculoskeletal: Musculoskeletal symptoms Back pain, lower leg pain. Neurological: No neurological symptoms other than noted, no dizziness, no vertigo, no fainting passing out with needles or medical procedures, no fainting, and no motor disturbances. Sensory disturbances neuropathy lower legs. Psychological: No sleep apnea. Skin: No skin symptoms other than noted. Physical Findings - Vitals taken 2024 02:12 pm BP-Sitting R 110/64 mmHg BP Cuff Size Regular Pulse Rate-Sitting 72 bpm Temp-Temporal 97.2 F Height 62 in Weight 168 lbs Body Mass Index 30.7 kg/m2 Body Surface Area 1.8 m2 Pain Level 8 Pain Level Note Full back. Oxygen Saturation 97 % Psychiatric: Psychiatric: Value PHQ9 score: 8 Constitutional: Well developed. Well nourished. No acute distress. HEENT: NC/AT. Anicteric. Clear Conjunctiva. PERRLA. MM's pink/moist. Neck supple. No thyromegally. No palpable masses. No lymphadenopathy in cervical chain bilaterally. CVS: RRR. No murmurs. No gallops. No rubs. No peripheral edema. Peripheral pulses palpable in all extremities. Pulmonary: CTA bilaterally. No wheezes. No rales. No crackles. No rubs. Spine/MSK: Si joint tenderness. Lower lumbar facet tenderness. Negative facet loading. Negative straight leg test bilaterally. Positive thigh thrust bilaterally. Positive pelvic compression. Positive Kalia's bilaterally. Negative distraction. Negative log roll bilaterally. Increase pain with flexion/extension bilateral hip joints. Tender over bilateral trochanteric bursa. Tender on mild touch mid calves and feet. Gait: Not antalgic. No steppage gait. No Trendelenburg gait. No circumspected gait pattern. Heel walk abnormal. Toe walk abnormal. Tandem gait normal. Neuro: Awake. Alert. Oriented x3. DTR's intact in all extremities. DTR's equal but weak in lower extremities. No focal neurologic deficit. [id number] normal bilaterally. Decreased sensation to touch from mid calf down. Psych: No apparent distress. Mood normal. Affect normal. No pain behaviors. Skin: Normal. 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 - Clinical summary provided to patient. Counseling/Education - Pill Count: 16 Nucynta Discussed Continue current medications. FU 3 months. Patient is on chronic opioid therapy and tolerating well with no report of adverse symptoms or side effects. Patient reports improvement in pain and functional capacity. Objective measures of pain interference and physical functioning show clinically significant benefit from therapy. Patient expresses understanding of safe and appropriate use of opioids for analgesia. and demonstrates the same. Random pill counts and urine drug screens have been appropriate. This and review of the [facility] database shows no evidence of misuse, abuse, diversion or signs of addiction/use disorder. Patient advised of risks and benefits of medication including the development of tolerance, dependence, withdrawal, addiction, constipation/obstipation, itching, allergic reactions, sedation, worsening depression/anxiety, hormonal perturbations, cognitive impairment or impairment in judgement, psychomotor slowing/impairment, intoxication, injury/accident, DWI/DUI, respiratory depression or failure, development of hyperalgesia, overdose and . Patient is aware that the combination of opioid medications in any form, whether used over the short term or chronically, with other sedative or psychoactive medication including but not limited to benzodiazepines, muscle relaxants, THC, alcohol, hypnotics/sleep medications or other illicit drugs can result in an increased risk of overdose and and is discouraged. Patient is aware that in all cases the lowest effective dose of opioids should be used and doses should be weaned as tolerated as pain improves. Opioid consent form and patient-physician agreement have been reviewed with the patient with all questions satisfactorily elicited asked and answered. These documents have been signed, witnessed and entered into the patient record with a copy provided to the patient. Patient understands that violation of this agreement could result in discontinuation of controlled substances including opioids and possible dismissal from the practice. Patient was further instructed today on taking medication correctly; storing medication securely; disposing of medication properly. Patient was warned against sharing medication and escalating doses without the prescribing provider's knowledge and instruction. Patient was instructed to call the office directly for refills of any controlled substance 4-5 days in advance to avoid unnecessary delays or disruptions in their dosing.. Plan StartCited - Dorsalgia, unspecified Baclofen 10 MG tablet TAKE 1 TABLET BY MOUTH TWICE A DAY, 30 days, 2 refills EndCited StartCited - Polyneuropathy, unspecified Pregabalin 200 MG capsule TAKE 1 CAPSULE BY MOUTH TWICE A DAY, 30 days, 2 refills Alpha-Lipoic Acid 600 MG capsule 1 capsule daily, 90 days, 0 refills EndCited Patient was seen today for 4 chronic unstable conditions of the lumbosacral spine, and central nervous system.Without treatment patient is at risk for significant functional limitations resulting in diminished quality of life and impaired age appropriate activities of daily living. Multiple documents have been reviewed in combination with today's evaluation including imaging studies, outside provider notes, laboratory data, patient self-report questionnaires, and Written prescription monitoring database entries. Significant social barriers exist to compliance resulting in limited prognosis. Decision to proceed with interventional therapies was made at the time of today's visit. Practice Management Use of tobacco assessment performed and patient screened for future fall risk documentation of any fall with injury in past year Review of medications documented; Standardized depression screening: positive for symptoms, for adult impression and score, impression and score 15, and impression and score 0; [41594] Established outpatient, medically appropriate H&P, moderate level decision making, 30+ minutes. A total of 16 minutes were spent on this patient's care and evaluation, as above. Results of this interaction were communicated directly to the patient's referring and/or primary care provider. All imaging studies and test results discussed in the above document were personally reviewed and evaluated by the performing provider. For all patients on acute or chronic opioids, ongoing need for opioid analgesia is assessed at each visit with consideration of discontinuation or wean to lowest effective dose when possible and appropriate. Contents of this document have been edited for correctness, but may be subject to typographical or manager salt errors. Verify all diagnoses, medications, dosages, and patient instructions with patient and/or the originator of this document. Care Team - TOMER LÓPEZ APN - Primary Care Health Reminders - Assess BMI satisfied 2024. - Assess Tobacco Use satisfied 2024. - Depression Screening satisfied 2024. - Smoking & Tobacco Cessation Intervention and Counseling satisfied 2024.
--- OUTSIDE RECORDS SUMMARY | 2024-12-19 11:38 | XMS_ITS ---
Author Organization [facility] Address [address] [place] [address] Phone Care Team Providers Care Electrical Intern Name Role Phone JAY LÓPEZ APNJeferson Carr Primary Care Provider [phone] Problems Includes: Active, inactive, and resolved Problems All Visits Onset Date Resolved Date Provider Condition S tatus Diabetes Mellitus Unknown PAKO Trevino ALEIDA CHILD CARE GIVER-FPA, VARNISH MELTER-BC Active Last Documented On 2 10:27AM ; [facility] Risk: Dvt/pulmonary Embolism Unknown PAKO Trevino ALEIDA CHILD CARE GIVER-FPA, VARNISH MELTER-BC Active Last Documented On 2 10:27AM ; [facility] Plan of Treatment Referrals To Diagnosis Pain Management [address] [address] - Spondylosis w/o myelopathy or radiculopathy, lumbar region Note: consent for bilateral L2, L3, L4 medial branch block under fluoroscopyNot on NSAIDs/ASAHold Eliquis 3 daysPt has SCS, L4-5 disc replacement, and s/p fusion L5-S1 Last Documented On 2 9:46AM ; [facility] Pain Management [address] [address] - Spondylosis w/o myelopathy or radiculopathy, lumbar region Note: consent for repeat jesus manuel ateral L2, L3, L4 medial branch block under fluoroscopyNot on NSAIDs/ASAHold Eliquis 3 daysPt has SCS, L4-5 disc replacement, and s/p fusion L5-S1 Last Documented On 2 9:46AM ; [facility] Pain Management [facility] [address] [place] [address] - Spondylosis w/o myelopathy or radiculopathy, lumbar region Note: consent for bilateral L2, L3, L4 [levels L3-4 and L4-5] thermal RFA under fluoroscopySend consent to PCP to hold Eliquis 3 days Last Documented On 2 11:01AM ; [facility] Pain Management [address] [address] - Sacroiliitis, not elsewhere classified Note: bilateral SI joint nelson roid injection under fluoroscopy Last Documented On 3 10:25AM ; [facility] Pain Management [address] [address] - Radiculopathy, lumbar region Note: consent for bilateral L4-5 transforaminal epidural steroid injection under fluroscopyHold eliquis 3 days Last Documented On 4 11:38AM ; [facility] Instructions to patient Intervention and counseling on cessation of tobacco use : Patient recieved smoking cessation handout Last Documented On 4 1:53PM ; [facility] Intervention and counseling on cessation of tobacco use : Patient recieved smoking cessation handout Last Documented On 4 3:27PM ; [facility] Intervention and counseling on cessation of tobacco use : Patient recieved smoking cessation handout Last Documented On 3 1:04PM ; [facility] Intervention and counseling on cessation of tobacco use : Patient recieved smoking cessation handout Last Documented On 3 10:40AM ; [facility] Intervention and counseling on cessation of tobacco use : Patient recieved smoking cessation handout Last Documented On 3 11:32AM ; [facility] Intervention and counseling on cessation of tobacco use : Patient recieved smoking cessation handout Last Documented On 3 9:49AM ; [facility] Intervention and counseling on cessation of tobacco use : Patient recieved smoking cessation handout Last Documented On 3 10:18AM ; [facility] Intervention and counseling on cessation of tobacco use : Patient recieved smoking cessation handout Last Documented On 2 9:08AM ; [facility] Intervention and counseling on cessation of tobacco use : Patient recieved smoking cessation handout Last Documented On 2 1:27PM ; [facility] Intervention and counseling on cessation of tobacco use : Patient recieved smoking cessation handout Last Documented On 2 10:12AM ; [facility] Intervention and counseling on cessation of tobacco use : Patient recieved smoking cessation handout Last Documented On 2 11:17AM ; [facility] Intervention and counseling on cessation of tobacco use : Patient recieved smoking cessation handout Last Documented On 2 9:57AM ; [facility] Education and Decision Aids were provided during visit for: Pill Count: 16 Nucynta Last Documented On 4 2:10PM ; [facility] Pill Count: 31 Nucynta Last Documented On 4 3:31PM ; [facility] Pill Count: 30 Nucynta Last Documented On 3 1:04PM ; [facility] Pill Count: 25 Nucynta Last Documented On 3 10:45AM ; [facility] Pill Count: 41 Nucynta Last Documented On 3 11:38AM ; [facility] Pill Count: 32 Nucynta Last Documented On 3 9:51AM ; [facility] Pill Count: 38 Nucynta Last Documented On 3 10:18AM ; [facility] Pill Count: 41 Nucynta Last Documented On 2 9:15AM ; [facility] Pill Count: Nucynta Last Documented On 2 1:26PM ; [facility] Assessments Includes: Assessments for all patient encounters Findings Encounter Date [G62.9 - Polyneuropathy, uns pecified] polyneuropathy PAIN MANAGEMENT FOLLOW UP with PAKO SHIN APRN-FPA, VARNISH MELTER-BC 2024 Last Documented On 4 9:02AM ; [facility] Chronic pain syndrome PAIN MANAGEMENT FO LLOW UP with PAKO Trevino ALEIDA CHILD CARE GIVER-FPA, VARNISH MELTER-BC 2024 Last Documented On 4 9:02AM ; [facility] DORSALGIA PAIN MANAGEMENT FOLLOW UP with Kody Trevino ALEIDA CHILD CARE GIVER-FPA, VARNISH MELTER-BC 2024 Last Documented On 4 9:02AM ; [facility] Hip pain PAIN MANAGEMENT FOLLOW UP with Kody Trevino ALEIDA CHILD CARE GIVER-FPA, VARNISH MELTER-BC 2024 Last Documented On 4 9:02AM ; 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 PAIN M ANAGEMENT FOLLOW UP with PAKO Trevino ALEIDA CHILD CARE GIVER-FPA, VARNISH MELTER-BC 2024 Last Documented On 4 9:02AM ; [facility] Lumbar radiculopathy PAIN MANAGEMENT FOL LOW UP with PAKO Uriel ALEIDA CHILD CARE GIVER-FPA, VARNISH MELTER-BC 2024 Last Documented On 4 9:02AM ; [facility] Postsurgical arthrodesis status PAIN MAN AGEMENT FOLLOW UP with PAKO Trevino ALEIDA CHILD CARE GIVER-FPA, VARNISH MELTER-BC 2024 Last Documented On 4 9:02AM ; [facility] Sacroiliitis PAIN MANAGEMENT FOLL OW UP with PAKO Trevino ALEIDA CHILD CARE GIVER-FPA, VARNISH MELTER-BC 2024 Last Documented On 4 9:02AM ; [facility] Spondylosis PAIN MANAGEMENT FOLLOW UP with Kody Trevino ALEIDA CHILD CARE GIVER-FPA, VARNISH MELTER-BC 2024 Last Documented On 4 9:02AM ; [facility] [G62.9 - Polyneuropathy, uns pecified] polyneuropathy PAIN MANAGEMENT FOLLOW UP with PAKO Uriel ALEIDA CHILD CARE GIVER-FPA, VARNISH MELTER-BC 10/05/2023 Last Documented On 4 4:52PM ; [facility] Chronic pain syndrome PAIN MANAGEMENT FO LLOW UP with PAKO Trevino ALEIDA CHILD CARE GIVER-FPA, VARNISH MELTER-BC 10/05/2023 Last Documented On 4 4:52PM ; [facility] DORSALGIA PAIN MANAGEMENT FOLLOW UP with Kody Trevino ALEIDA CHILD CARE GIVER-FPA, VARNISH MELTER-BC 10/05/2023 Last Documented On 4 4:52PM ; [facility] Hip pain PAIN MANAGEMENT FOLLOW UP with Kody Trevino ALEIDA CHILD CARE GIVER-FPA, VARNISH MELTER-BC 10/05/2023 Last Documented On 4 4:52PM ; 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 PAIN M ANAGEMENT FOLLOW UP with PAKO Trevino ALEIDA CHILD CARE GIVER-FPA, VARNISH MELTER-BC 10/05/2023 Last Documented On 4 4:52PM ; [facility] Lumbar radiculopathy PAIN MANAGEMENT FOL LOW UP with PAKO Trevino ALEIDA CHILD CARE GIVER-FPA, VARNISH MELTER-BC 10/05/2023 Last Documented On 4 4:52PM ; [facility] Postsurgical arthrodesis status PAIN MAN AGEMENT FOLLOW UP with PAKO Trevino ALEIDA CHILD CARE GIVER-FPA, VARNISH MELTER-BC 10/05/2023 Last Documented On 4 4:52PM ; [facility] Sacroiliitis PAIN MANAGEMENT FOLL OW UP with PAKO Trevino ALEIDA CHILD CARE GIVER-FPA, VARNISH MELTER-BC 10/05/2023 Last Documented On 4 4:52PM ; [facility] Spondylosis PAIN MANAGEMENT FOLLOW UP with Kody Trevino ALEIDA CHILD CARE GIVER-FPA, VARNISH MELTER-BC 10/05/2023 Last Documented On 4 4:52PM ; [facility] [G62.9 - Polyneuropathy, uns pecified] polyneuropathy TELEHEALTH with PAKO Trevino ALEIDA CHILD CARE GIVER-FPA, VARNISH MELTER-BC 08/06/2023 Last Documented On 3 1:27PM ; [facility] Chronic pain syndrome TELEHEALTH with PAKO Trevino ALEIDA CHILD CARE GIVER-FPA, VARNISH MELTER-BC 08/06/2023 Last Documented On 3 1:27PM ; [facility] DORSALGIA TELEHEALTH with PAKO Trevino ALEIDA A PRN-FPA, VARNISH MELTER-BC 08/06/2023 Last Documented On 3 1:27PM ; [facility] Hip pain TELEHEALTH with PAKO SHIN A PRN-FPA, VARNISH MELTER-BC 08/06/2023 Last Documented On 3 1:27PM ; [facility] 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 TELEHE ALTH with PAKO SIMMONSLP CHILD CARE GIVER-FPA, VARNISH MELTER-BC 08/06/2023 Last Documented On 3 1:27PM ; [facility] Lumbar radiculopathy TELEHEALTH with PAKO Ayon ULP CHILD CARE GIVER-FPA, VARNISH MELTER-BC 08/06/2023 Last Documented On 3 1:27PM ; [facility] Postsurgical arthrodesis status TELEHEAL TH with PAKO SHIN CHILD CARE GIVER-FPA, VARNISH MELTER-BC 08/06/2023 Last Documented On 3 1:27PM ; [facility] Sacroiliitis TELEHEALTH with PAKO SIMMONSLP A PRN-FPA, VARNISH MELTER-BC 08/06/2023 Last Documented On 3 1:27PM ; [facility] Spondylosis TELEHEALTH with PAKO Trevino ALEIDA A PRN-FPA, VARNISH MELTER-BC 08/06/2023 Last Documented On 3 1:27PM ; [facility] [G62.9 - Polyneuropathy, uns pecified] polyneuropathy PAIN MANAGEMENT FOLLOW UP with PAKO SHIN CHILD CARE GIVER-FPA, VARNISH MELTER-BC 05/07/2023 Last Documented On 3 11:07AM ; [facility] Chronic pain syndrome PAIN MANAGEMENT FO LLOW UP with PAKO Trevino ALEIDA CHILD CARE GIVER-FPA, VARNISH MELTER-BC 05/07/2023 Last Documented On 3 11:07AM ; [facility] DORSALGIA PAIN MANAGEMENT FOLLOW UP with Kody Trevino ALEIDA CHILD CARE GIVER-FPA, VARNISH MELTER-BC 05/07/2023 Last Documented On 3 11:07AM ; [facility] Hip pain PAIN MANAGEMENT FOLLOW UP with Kody Trevino ALEIDA CHILD CARE GIVER-FPA, VARNISH MELTER-BC 05/07/2023 Last Documented On 3 11:07AM ; [facility] 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 PAIN M ANAGEMENT FOLLOW UP with PAKO Trevino ALEIDA CHILD CARE GIVER-FPA, VARNISH MELTER-BC 05/07/2023 Last Documented On 3 11:07AM ; [facility] Lumbar radiculopathy PAIN MANAGEMENT FOL LOW UP with PAKO Trevino ALEIDA CHILD CARE GIVER-FPA, VARNISH MELTER-BC 05/07/2023 Last Documented On 3 11:07AM ; [facility] Postsurgical arthrodesis status PAIN MAN AGEMENT FOLLOW UP with PAKO Trevino ALEIDA CHILD CARE GIVER-FPA, VARNISH MELTER-BC 05/07/2023 Last Documented On 3 11:07AM ; [facility] Sacroiliitis PAIN MANAGEMENT FOLL OW UP with PAKO Trevino ALEIDA CHILD CARE GIVER-FPA, VARNISH MELTER-BC 05/07/2023 Last Documented On 3 11:07AM ; [facility] Spondylosis PAIN MANAGEMENT FOLLOW UP with Kody Trevino ALEIDA CHILD CARE GIVER-FPA, VARNISH MELTER-BC 05/07/2023 Last Documented On 3 11:07AM ; [facility] [G62.9 - Polyneuropathy, uns pecified] polyneuropathy PAIN MANAGEMENT FOLLOW UP with PAKO Trevino ALEIDA CHILD CARE GIVER-FPA, VARNISH MELTER-BC 01/29/2023 Last Documented On 3 12:06PM ; [facility] Chronic pain syndrome PAIN MANAGEMENT FO LLOW UP with PAKO Trevino ALEIDA CHILD CARE GIVER-FPA, VARNISH MELTER-BC 01/29/2023 Last Documented On 3 12:06PM ; [facility] DORSALGIA PAIN MANAGEMENT FOLLOW UP with Kody Trevino ALEIDA CHILD CARE GIVER-FPA, VARNISH MELTER-BC 01/29/2023 Last Documented On 3 12:06PM ; [facility] Hip pain PAIN MANAGEMENT FOLLOW UP with Kody Trevino ALEIDA CHILD CARE GIVER-FPA, VARNISH MELTER-BC 01/29/2023 Last Documented On 3 12:06PM ; [facility] 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 PAIN M ANAGEMENT FOLLOW UP with PAKO Trevino ALEIDA CHILD CARE GIVER-FPA, VARNISH MELTER-BC 01/29/2023 Last Documented On 3 12:06PM ; [facility] Lumbar radiculopathy PAIN MANAGEMENT FOL LOW UP with PAKO Trevino ALEIDA CHILD CARE GIVER-FPA, VARNISH MELTER-BC 01/29/2023 Last Documented On 3 12:06PM ; [facility] Postsurgical arthrodesis status PAIN MAN AGEMENT FOLLOW UP with PAKO Trevino ALEIDA CHILD CARE GIVER-FPA, VARNISH MELTER-BC 01/29/2023 Last Documented On 3 12:06PM ; [facility] Sacroiliitis PAIN MANAGEMENT FOLL OW UP with PAKO Trevino ALEIDA CHILD CARE GIVER-FPA, VARNISH MELTER-BC 01/29/2023 Last Documented On 3 12:06PM ; [facility] Spondylosis PAIN MANAGEMENT FOLLOW UP with Kody Trevino ALEIDA CHILD CARE GIVER-FPA, VARNISH MELTER-BC 01/29/2023 Last Documented On 3 12:06PM ; [facility] [G62.9 - Polyneuropathy, uns pecified] polyneuropathy PAIN MANAGEMENT FOLLOW UP with PAKO Trevino ALEIDA CHILD CARE GIVER-FPA, VARNISH MELTER-BC 12/04/2022 Last Documented On 3 12:23PM ; [facility] Chronic pain syndrome PAIN MANAGEMENT FO LLOW UP with PAKO Trevino ALEIDA CHILD CARE GIVER-FPA, VARNISH MELTER-BC 12/04/2022 Last Documented On 3 12:23PM ; [facility] DORSALGIA PAIN MANAGEMENT FOLLOW UP with Kody Trevino ALEIDA CHILD CARE GIVER-FPA, VARNISH MELTER-BC 12/04/2022 Last Documented On 3 12:23PM ; [facility] Hip pain PAIN MANAGEMENT FOLLOW UP with Kody Trevino ALEIDA CHILD CARE GIVER-FPA, VARNISH MELTER-BC 12/04/2022 Last Documented On 3 12:23PM ; [facility] 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 PAIN M ANAGEMENT FOLLOW UP with PAKO Trevino ALEIDA CHILD CARE GIVER-FPA, VARNISH MELTER-BC 12/04/2022 Last Documented On 3 12:23PM ; [facility] Lumbar radiculopathy PAIN MANAGEMENT FOL LOW UP with PAKO Trevino ALEIDA CHILD CARE GIVER-FPA, VARNISH MELTER-BC 12/04/2022 Last Documented On 3 12:23PM ; [facility] Postsurgical arthrodesis status PAIN MAN AGEMENT FOLLOW UP with PAKO Trevino ALEIDA CHILD CARE GIVER-FPA, VARNISH MELTER-BC 12/04/2022 Last Documented On 3 12:23PM ; [facility] Sacroiliitis PAIN MANAGEMENT FOLL OW UP with PAKO Trevino ALEIDA CHILD CARE GIVER-FPA, VARNISH MELTER-BC 12/04/2022 Last Documented On 3 12:23PM ; [facility] Spondylosis PAIN MANAGEMENT FOLLOW UP with Kody Trevino ALEIDA CHILD CARE GIVER-FPA, VARNISH MELTER-BC 12/04/2022 Last Documented On 3 12:23PM ; [facility] [G62.9 - Polyneuropathy, uns pecified] polyneuropathy PAIN MANAGEMENT FOLLOW UP with PAKO Trevino ALEIDA CHILD CARE GIVER-FPA, VARNISH MELTER-BC 10/02/2022 Last Documented On 3 11:13AM ; [facility] Chronic pain syndrome PAIN MANAGEMENT FO LLOW UP with PAKO Trevino ALEIDA CHILD CARE GIVER-FPA, VARNISH MELTER-BC 10/02/2022 Last Documented On 3 11:13AM ; [facility] DORSALGIA PAIN MANAGEMENT FOLLOW UP with Kody Trevino ALEIDA CHILD CARE GIVER-FPA, VARNISH MELTER-BC 10/02/2022 Last Documented On 3 11:13AM ; [facility] Hip pain PAIN MANAGEMENT FOLLOW UP with Kody Trevino ALEIDA CHILD CARE GIVER-FPA, VARNISH MELTER-BC 10/02/2022 Last Documented On 3 11:13AM ; [facility] Postsurgical arthrodesis status PAIN MAN AGEMENT FOLLOW UP with PAKO Trevino ALEIDA CHILD CARE GIVER-FPA, VARNISH MELTER-BC 10/02/2022 Last Documented On 3 11:13AM ; [facility] Sacroiliitis PAIN MANAGEMENT FOLL OW UP with PAKO Trevino ALEIDA CHILD CARE GIVER-FPA, VARNISH MELTER-BC 10/02/2022 Last Documented On 3 11:13AM ; [facility] Spondylosis PAIN MANAGEMENT FOLLOW UP with Kody Trevino ALEIDA CHILD CARE GIVER-FPA, VARNISH MELTER-BC 10/02/2022 Last Documented On 3 11:13AM ; [facility] [G62.9 - Polyneuropathy, uns pecified] polyneuropathy PAIN MANAGEMENT FOLLOW UP with PAKO Trevino ALEIDA CHILD CARE GIVER-FPA, VARNISH MELTER-BC 07/03/2022 Last Documented On 2 11:57AM ; [facility] [Z01.818 - Encounter for ot er preprocedural examination] visit for: preoperative exam PAIN MANAGEMENT FOLLOW UP with PAKO Trevino ALEIDA CHILD CARE GIVER-FPA, VARNISH MELTER-BC 07/03/2022 Last Documented On 2 11:57AM ; [facility] Chronic pain syndrome PAIN MANAGEMENT FO LLOW UP with PAKO Trevino ALEIDA CHILD CARE GIVER-FPA, VARNISH MELTER-BC 07/03/2022 Last Documented On 2 11:57AM ; [facility] DORSALGIA PAIN MANAGEMENT FOLLOW UP with Kody Trevino ALEIDA CHILD CARE GIVER-FPA, VARNISH MELTER-BC 07/03/2022 Last Documented On 2 11:57AM ; [facility] 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 PAIN M ANAGEMENT FOLLOW UP with PAKO Trevino ALEIDA CHILD CARE GIVER-FPA, VARNISH MELTER-BC 07/03/2022 Last Documented On 2 11:57AM ; [facility] Postsurgical arthrodesis status PAIN MAN AGEMENT FOLLOW UP with PAKO Trevino ALEIDA CHILD CARE GIVER-FPA, VARNISH MELTER-BC 07/03/2022 Last Documented On 2 11:57AM ; [facility] Spondylosis PAIN MANAGEMENT FOLLOW UP with Kody Trevino ALEIDA CHILD CARE GIVER-FPA, VARNISH MELTER-BC 07/03/2022 Last Documented On 2 11:57AM ; [facility] [G62.9 - Polyneuropathy, uns pecified] polyneuropathy PAIN MANAGEMENT FOLLOW UP with PAKO Trevino ALEIDA CHILD CARE GIVER-FPA, VARNISH MELTER-BC 05/13/2022 Last Documented On 2 2:06PM ; [facility] Chronic pain syndrome PAIN MANAGEMENT FO LLOW UP with PAKO Trevino ALEDIA CHILD CARE GIVER-FPA, VARNISH MELTER-BC 05/13/2022 Last Documented On 2 2:06PM ; [facility] DORSALGIA PAIN MANAGEMENT FOLLOW UP with Kody Trevino ALEIDA CHILD CARE GIVER-FPA, VARNISH MELTER-BC 05/13/2022 Last Documented On 2 2:06PM ; [facility] 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 PAIN M ANAGEMENT FOLLOW UP with PAKO SIMMONSLP CHILD CARE GIVER-FPA, VARNISH MELTER-BC 05/13/2022 Last Documented On 2 2:06PM ; [facility] Postsurgical arthrodesis status PAIN MAN AGEMENT FOLLOW UP with PAKO Trevino ALEIDA CHILD CARE GIVER-FPA, VARNISH MELTER-BC 05/13/2022 Last Documented On 2 2:06PM ; [facility] Spondylosis PAIN MANAGEMENT FOLLOW UP with Kody Trevino ALEIDA CHILD CARE GIVER-FPA, VARNISH MELTER-BC 05/13/2022 Last Documented On 2 2:06PM ; [facility] [G62.9 - Polyneuropathy, uns pecified] polyneuropathy PAIN MANAGEMENT FOLLOW UP with PAKO Trevino ALEIDA CHILD CARE GIVER-FPA, VARNISH MELTER-BC 04/17/2022 Last Documented On 2 11:30AM ; [facility] Chronic pain syndrome PAIN MANAGEMENT FO LLOW UP with PAKO Trevino ALEIDA CHILD CARE GIVER-FPA, VARNISH MELTER-BC 04/17/2022 Last Documented On 2 11:30AM ; [facility] DORSALGIA PAIN MANAGEMENT FOLLOW UP with Kody Trevino ALEIDA CHILD CARE GIVER-FPA, VARNISH MELTER-BC 04/17/2022 Last Documented On 2 11:30AM ; [facility] 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 PAIN M ANAGEMENT FOLLOW UP with PAKO Trevino ALEIDA CHILD CARE GIVER-FPA, VARNISH MELTER-BC 04/17/2022 Last Documented On 2 11:30AM ; [facility] Postsurgical arthrodesis status PAIN MAN AGEMENT FOLLOW UP with PAKO Trevino ALEIDA CHILD CARE GIVER-FPA, VARNISH MELTER-BC 04/17/2022 Last Documented On 2 11:30AM ; [facility] Spondylosis PAIN MANAGEMENT FOLLOW UP with Kody Trevino ALEIDA CHILD CARE GIVER-FPA, VARNISH MELTER-BC 04/17/2022 Last Documented On 2 11:30AM ; [facility] [G62.9 - Polyneuropathy, uns pecified] polyneuropathy PAIN MANAGEMENT FOLLOW UP with PAKO Trevino ALEIDA CHILD CARE GIVER-FPA, VARNISH MELTER-BC 01/02/2022 Last Documented On 2 9:46AM ; [facility] Chronic pain syndrome PAIN MANAGEMENT FO LLOW UP with PAKO Trevino ALEIDA CHILD CARE GIVER-FPA, VARNISH MELTER-BC 01/02/2022 Last Documented On 2 9:46AM ; [facility] DORSALGIA PAIN MANAGEMENT FOLLOW UP with Kody Trevino ALEIDA CHILD CARE GIVER-FPA, VARNISH MELTER-BC 01/02/2022 Last Documented On 2 9:46AM ; [facility] 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 PAIN M ANAGEMENT FOLLOW UP with PAKO Trevino ALEIDA CHILD CARE GIVER-FPA, VARNISH MELTER-BC 01/02/2022 Last Documented On 2 9:46AM ; [facility] Postsurgical arthrodesis status PAIN MAN AGEMENT FOLLOW UP with PAKO Trevino ALEIDA CHILD CARE GIVER-FPA, VARNISH MELTER-BC 01/02/2022 Last Documented On 2 9:46AM ; [facility] Spondylosis PAIN MANAGEMENT FOLLOW UP with Kody Trevino ALEIDA CHILD CARE GIVER-FPA, VARNISH MELTER-BC 01/02/2022 Last Documented On 2 9:46AM ; [facility] [G62.9 - Polyneuropathy, uns pecified] polyneuropathy PAIN MANAGEMENT NEW CONSULT with PAKO Trevino ALEIDA CHILD CARE GIVER-FPA, VARNISH MELTER-BC 12/05/2021 Last Documented On 2 11:06AM ; [facility] Chronic pain syndrome PAIN MANAGEMENT NE W CONSULT with PAKO Trevino ALEIDA CHILD CARE GIVER-FPA, VARNISH MELTER-BC 12/05/2021 Last Documented On 2 11:06AM ; [facility] DORSALGIA PAIN MANAGEMENT NEW CONSULT with PAKO Trevino ALEIDA CHILD CARE GIVER-FPA, VARNISH MELTER-BC 12/05/2021 Last Documented On 2 11:06AM ; [facility] 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 PAIN M ANAGEMENT NEW CONSULT with PAKO Trevino ALEIDA CHILD CARE GIVER-FPA, VARNISH MELTER-BC 12/05/2021 Last Documented On 2 11:06AM ; [facility] Postsurgical arthrodesis status PAIN MAN AGEMENT NEW CONSULT with PAKO SHIN CHILD CARE GIVER-FPA, VARNISH MELTER-BC 12/05/2021 Last Documented On 2 11:06AM ; [facility] Spondylosis PAIN MANAGEMENT NEW CONSULT with PAKO SHIN CHILD CARE GIVER-FPA, VARNISH MELTER-BC 12/05/2021 Last Documented On 2 11:06AM ; [facility] Instructions Includes: Instructions for all patient encounters Instructions to patient Intervention and counseling on cessation of tobacco use : Patient recieved smoking cessation handout Last Documented On 4 1:53PM ; [facility] Intervention and counseling on cessation of tobacco use : Patient recieved smoking cessation handout Last Documented On 4 3:27PM ; [facility] Intervention and counseling on cessation of tobacco use : Patient recieved smoking cessation handout Last Documented On 3 1:04PM ; [facility] Intervention and counseling on cessation of tobacco use : Patient recieved smoking cessation handout Last Documented On 3 10:40AM ; [facility] Intervention and counseling on cessation of tobacco use : Patient recieved smoking cessation handout Last Documented On 3 11:32AM ; [facility] Intervention and counseling on cessation of tobacco use : Patient recieved smoking cessation handout Last Documented On 3 9:49AM ; [facility] Intervention and counseling on cessation of tobacco use : Patient recieved smoking cessation handout Last Documented On 3 10:18AM ; [facility] Intervention and counseling on cessation of tobacco use : Patient recieved smoking cessation handout Last Documented On 2 9:08AM ; [facility] Intervention and counseling on cessation of tobacco use : Patient recieved smoking cessation handout Last Documented On 2 1:27PM ; [facility] Intervention and counseling on cessation of tobacco use : Patient recieved smoking cessation handout Last Documented On 2 10:12AM ; [facility] Intervention and counseling on cessation of tobacco use : Patient recieved smoking cessation handout Last Documented On 2 11:17AM ; [facility] Intervention and counseling on cessation of tobacco use : Patient recieved smoking cessation handout Last Documented On 2 9:57AM ; [facility] Education and Decision Aids were provided during visit for: Pill Count: 16 Nucynta Last Documented On 4 2:10PM ; [facility] Pill Count: 31 Nucynta Last Documented On 4 3:31PM ; [facility] Pill Count: 30 Nucynta Last Documented On 3 1:04PM ; [facility] Pill Count: 25 Nucynta Last Documented On 3 10:45AM ; [facility] Pill Count: 41 Nucynta Last Documented On 3 11:38AM ; [facility] Pill Count: 32 Nucynta Last Documented On 3 9:51AM ; [facility] Pill Count: 38 Nucynta Last Documented On 3 10:18AM ; [facility] Pill Count: 41 Nucynta Last Documented On 2 9:15AM ; [facility] Pill Count: Nucynta Last Documented On 2 1:26PM ; [facility] Medical Equipment - Implanted Devices Includes: Current and historical Devices No Medical Equipment Recorded Medications Includes: Current and historical Medications Current Medications (continue as prescribed) Nucynta ER 150 MG Oral Table t Extended Release 12 Hour 01/25/2024 Provider: JESE GREWAL Diagnosis: One tablet twice a day Last Documented On 4 2:54PM By PAKO SAWANT ; [facility] Alpha-Lipoic Acid 600 MG Oral Capsule 2024 Provider: JESE GREWAL Diagnosis: Polyneuropathy, unspecified 1 capsule daily Last Documented On 4 2:30PM By PAKO SAWANT ; [facility] Baclofen 10 MG Oral Tablet 2024 Provider: JEES ALFORD Diagnosis: Dorsalgia, unspe cified TAKE 1 TABLET BY MOUTH TWICE A DAY Last Documented On 4 2:30PM By PAKO SAWANT ; [facility] Pregabalin 200 MG Oral Capsule 2024 Provider: JESE GREWAL Diagnosis: Polyneuropathy, unspecified TAKE 1 CAPSULE BY MOUTH TWICE A DAY Last Documented On 4 2:30PM By PAKO SAWANT ; [facility] Ozempic (0.25 or 0.5 MG/DOSE ) 2 MG/3ML Subcutaneous Solution Pen-injector 01/04/2024 Provider: JOE EWING DO Diagnosis: Last Documented On 4 2:26PM By PAKO SAWANT ; [facility] QUEtiapine Fumarate 50 MG Oral Tablet 08/04/2023 Pro vider: Diagnosis: Last Documented On 3 1:22PM By PAKO SAWANT ; [facility] Gabapentin 100 MG Oral Capsule 07/20/2023 Provider: Diagnosis: Last Documented On 3 1:22PM By PAKO SAWANT ; [facility] LORazepam 0.5 MG Oral Tablet 07/20/2023 Provider: Diagnosis: Last Documented On 3 1:22PM By PAKO SAWANT ; [facility] Prazosin HCl 2 MG Oral Capsule 06/16/2023 Provider: Diagnosis: Last Documented On 3 1:22PM By PAKO SAWANT ; [facility] traZODone HCl 50 MG Oral Tablet 06/15/2023 Provider: Diagnosis: Last Documented On 3 1:22PM By PAKO SAWANT ; [facility] Narcan 4 MG/0.1ML Nasal Liquid 05/07/2023 Provider: JESE GREWAL Diagnosis: FPC (curre nt) use of opiate analgesic 1 spray intranasally for yris pected overdose Last Documented On 3 1:22PM By PAKO SAWANT ; [facility] Sertraline HCl 100 MG Oral Tablet 05/04/2023 Provide r: Diagnosis: Last Documented On 3 10:58AM By PAKO SHIN [facility] ; [facility] Jardiance 10 MG Oral Tablet 11/28/2021 Provider: Diagnosis: Last Documented On 2 10:54AM [facility] Eliquis 5 MG Oral Tablet 11/28/2021 Provider: Diagnosis: Last Documented On 2 10:54AM By PAKO SHIN [facility] ; [facility] Lantus SoloStar 100 UNIT/ML Subcutaneous Solutio n Pen-injector 11/11/2021 Provider: Diagnosis: 40 units once a day. Last Documented On 2 10:54AM By PAKO SHIN [facility] ; [facility] Atorvastatin Calcium 80 MG Oral Tablet 10/02/2021 Pr ovider: Diagnosis: Last Documented On 2 10:54AM [facility] ; [facility] Past Medications on file Nucynta ER 150 MG Oral Tablet Extended Release 12 Hour 01/19/2024 - 01/25/2024 Provider: PAKO SHIN A PRN-FPA, [facility] MELTER-BC Diagnosis: One tablet twice a day Last Documented On 4 2:42PM By PAKO SHIN [facility] ; [facility] Baclofen 10 MG Oral Tablet 12/28/2023 - 2024 Provider: PAKO SHIN CHILD CARE GIVER-FPA, [facility] MELTER-BC Diagnosis: Dorsalgia, unspe cified TAKE 1 TABLET BY MOUTH TWICE A DAY Last Documented On 4 2:26PM By PAKO SHIN [facility] ; [facility] Nucynta ER 150 MG Oral Tablet Extended Release 12 Hour 12/21/2023 - 01/19/2024 Provider: PAKO SHIN A PRN-FPA, [facility] MELTER-BC Diagnosis: One tablet twice a day Last Documented On 4 1:10PM By PAKO WINSLOWKARI ; [facility] Nucynta ER 150 MG Oral Tablet Extended Release 12 Hour 11/17/2023 - 12/21/2023 Provider: PAKO SHIN A PRN-FPA, [facility] MELTER-BC Diagnosis: One tablet twice a day Last Documented On 4 11:15AM By PAKO SHIN [facility] ; [facility] Nucynta ER 150 MG Oral Tablet Extended Release 12 Hour 10/19/2023 - 11/17/2023 Provider: PAKO SHIN A PRN-FPA, [facility] MELTER-BC Diagnosis: One tablet twice a day Last Documented On 4 2:55PM By PAKO SHIN [facility] ; [facility] Pregabalin 200 MG Oral Capsule 10/05/2023 - 2024 Provider: PAKO SHIN CHILD CARE GIVER-FPA, [facility] MELTER-BC Diagnosis: Polyneuropathy, unspecified TAKE 1 CAPSULE BY MOUTH TWICE A DAY Last Documented On 4 2:26PM By PAKO SHIN [facility] ; [facility] Baclofen 10 MG Oral Tablet 10/05/2023 - 12/28/2023 Provider: PAKO SHIN CHILD CARE GIVER-FPA, [facility] MELTER-BC Diagnosis: Dorsalgia, unspe cified TAKE 1 TABLET BY MOUTH TWICE A DAY Last Documented On 4 8:47AM By PAKO SHIN [facility] ; [facility] Nucynta ER 150 MG Oral Tablet Extended Release 12 Hour 09/18/2023 - 10/19/2023 Provider: PAKO SHIN A PRN-FPA, [facility] MELTER-BC Diagnosis: One tablet twice a day Last Documented On 4 12:28PM By PAKO SHIN [facility] ; [facility] Nucynta ER 150 MG Oral Tablet Extended Release 12 Hour 08/19/2023 - 09/18/2023 Provider: PAKO Handy PRN-FPA, [facility] MELTER-BC Diagnosis: One tablet twice a day Last Documented On 4 12:07PM By PAKO SHIN [facility] ; [facility] Metanx 3-90.314-2-35 MG Oral Capsule 08/06/2023 - 2024 Provider: PAKO SHIN CHILD CARE GIVER-FPA, VARNISH MELTER-BC Diagnosis: Type 2 diabetes mellitus with diabetic neuropathy, unsp 1 CAPSULE TWO TIMES A DAY Last Documented On 4 2:18PM By PAKO SHIN [facility] ; [facility] Pregabalin 200 MG Oral Capsule 08/04/2023 - 10/05/2023 Provider: PAKO SHIN CHILD CARE GIVER-FPA, [facility] MELTER-BC Diagnosis: Polyneuropathy, unspecified TAKE 1 CAPSULE BY MOUTH TWICE A DAY Last Documented On 4 3:58PM By PAKO SHIN [facility] ; [facility] Nucynta ER 150 MG Oral Tablet Extended Release 12 Hour 07/20/2023 - 08/19/2023 Provider: PAKO Handy PRN-FPA, [facility] MELTER-BC Diagnosis: One tablet twice a day Last Documented On 3 6:07PM By PAKO SHIN [facility] ; [facility] Nucynta ER 150 MG Oral Tablet Extended Release 12 Hour 06/19/2023 - 07/20/2023 Provider: PAKO Handy PRN-FPA, [facility] MELTER-BC Diagnosis: One tablet twice a day Last Documented On 3 10:19AM By PAKO SHIN [facility] ; [facility] Nucynta ER 100 MG Oral Tablet Extended Release 12 Hour 05/21/2023 - 06/19/2023 Provider: PAKO SHIN CHILD CARE GIVER-FPA, [facility] MELTER-BC Diagnosis: Polyneuropathy, unspecified One tablet twice a day Last Documented On 3 9:45AM By PAKO SHIN [facility] ; [facility] Nucynta ER 150 MG Oral Tablet Extended Release 12 Hour 05/18/2023 - 06/19/2023 Provider: PAKO Handy PRN-FPA, [facility] MELTER-BC Diagnosis: One tablet twice a day Last Documented On 3 9:45AM By PAKO SHIN [facility] ; [facility] Baclofen 10 MG Oral Tablet 05/07/2023 - 10/05/2023 Provider: PAKO SHIN CHILD CARE GIVER-FPA, [facility] MELTER-BC Diagnosis: Dorsalgia, unspe cified TAKE 1 TABLET BY MOUTH TWICE A DAY Last Documented On 4 3:55PM By PAKO SHIN [facility] ; [facility] Pregabalin 200 MG Oral Capsule 05/07/2023 - 08/04/2023 Provider: NAYLA GREWALP-BC Diagnosis: Polyneuropathy, unspecified 1 CAPSULE TWO TIMES A DAY Last Documented On 3 12:54PM By PAKO SAWANT ; [facility] busPIRone HCl 15 MG Oral Tablet 05/04/2023 - Provider: Diagnosis: Last Documented On 3 1:05PM By Edwina MISTRY ; [facility] Nucynta ER 100 MG Oral Tablet Extended Release 12 Hour 04/17/2023 - 05/20/2023 Provider: NAYLA GREWALP-BC Diagnosis: Polyneuropathy, unspecified One tablet twice a day Last Documented On 3 8:41AM By PAKO MCKINNEYKARI ; [facility] Nucynta ER 100 MG Oral Tablet Extended Release 12 Hour 03/18/2023 - 04/17/2023 Provider: NAYLA GREWALP-BC Diagnosis: Polyneuropathy, unspecified One tablet twice a day Last Documented On 3 11:55AM By PAKO SAWANT ; [facility] Nucynta ER 100 MG Oral Tablet Extended Release 12 Hour 02/16/2023 - 03/18/2023 Provider: NAYLA GREWALP-BC Diagnosis: Polyneuropathy, unspecified One tablet twice a day Last Documented On 3 12:12PM By PAKO SAWANT ; [facility] Baclofen 10 MG Oral Tablet 01/29/2023 - 05/07/2023 Provider: PAKO SHIN APRN-JEWELS VARNISH MELTER-BC Diagnosis: Dorsalgia, unspe cified TAKE 1 TABLET BY MOUTH TWICE A DAY Last Documented On 3 10:59AM By PAKO MCKINNEYKARI ; [facility] Pregabalin 200 MG Oral Capsule 01/29/2023 - 05/07/2023 Provider: NAYLA GREWALP-BC Diagnosis: Polyneuropathy, unspecified 1 CAPSULE TWO TIMES A DAY Last Documented On 3 11:00AM By PAKO SAWANT ; [facility] Nucynta ER 100 MG Oral Tablet Extended Release 12 Hour 01/16/2023 - 02/16/2023 Provider: JESE GREWAL Diagnosis: Polyneuropathy, unspecified One tablet twice a day Last Documented On 3 10:31AM By PAKO SAWANT ; [facility] Nucynta ER 100 MG Oral Tablet Extended Release 12 Hour 12/17/2022 - 01/15/2023 Provider: JEES GREWAL Diagnosis: Polyneuropathy, unspecified One tablet twice a day Last Documented On 3 8:51AM By PAKO SAWANT ; [facility] Valium 5 MG Oral Tablet 12/04/2022 - 01/29/2023 Provider: JESE GREWAL Diagnosis: Radiculopathy, l umbar region take 1 hour before procedure Last Documented On 3 11:38AM By Edwina MISTRY ; [facility] Baclofen 10 MG Oral Tablet 12/04/2022 - 01/29/2023 Provider: JESE GREWAL Diagnosis: Dorsalgia, unspe cified TAKE 1 TABLET BY MOUTH TWICE A DAY Last Documented On 3 12:01PM By PAKO SAWANT ; [facility] Pregabalin 200 MG Oral Capsule 12/04/2022 - 01/29/2023 Provider: JESE GREWAL Diagnosis: Polyneuropathy, unspecified 1 CAPSULE TWO TIMES A DAY Last Documented On 3 12:02PM By PAKO SAWANT ; [facility] Vitamin D (Ergocalciferol) 5 0000 UNIT Oral Capsule 12/04/2022 - 05/07/2023 Provider: Diagnosis: once per week Last Documented On 3 10:46AM By Edwina MISTRY ; [facility] Baclofen 10 MG Oral Tablet 11/24/2022 - 12/04/2022 Provider: PAKO Handy PRN-FPA, [facility] MELTER-BC Diagnosis: TAKE 1 TABLET BY MOUTH TWICE A DAY Last Documented On 3 12:20PM By PAKO SHIN [facility] ; [facility] Nucynta ER 100 MG Oral Tablet Extended Release 12 Hour 11/18/2022 - 12/15/2022 Provider: PAKO SHIN CHILD CARE GIVER-FPA, VARNISH MELTER-BC Diagnosis: Polyneuropathy, unspecified One tablet twice a day Last Documented On 3 9:00AM By PAKO SHIN [facility] ; [facility] Baclofen 10 MG Oral Tablet 10/20/2022 - 11/24/2022 Provider: PAKO Handy PRN-FPA, [facility] MELTER-BC Diagnosis: TAKE 1 TABLET BY MOUTH TWICE A DAY Last Documented On 3 10:45AM By PAKO SHIN [facility] ; [facility] Nucynta ER 100 MG Oral Tablet Extended Release 12 Hour 10/20/2022 - 11/18/2022 Provider: PAKO SHIN CHILD CARE GIVER-FPA, VARNISH MELTER-BC Diagnosis: Polyneuropathy, unspecified One tablet twice a day Last Documented On 3 1:41PM By PAKO SHIN [facility] ; [facility] Pregabalin 200 MG Oral Capsule 10/02/2022 - 12/04/2022 Provider: PAKO SHIN CHILD CARE GIVER-FPA, VARNISH MELTER-BC Diagnosis: Polyneuropathy, unspecified 1 CAPSULE TWO TIMES A DAY Last Documented On 3 10:12AM By PAKO SHIN [facility] ; [facility] Baclofen 10 MG Oral Tablet 09/26/2022 - 10/20/2022 Provider: PAKO SHIN A PRN-FPA, [facility] MELTER-BC Diagnosis: TAKE 1 TABLET BY MOUTH TWICE A DAY Last Documented On 3 6:19PM By PAKO SHIN [facility] ; [facility] Trulicity 0.75 MG/0.5ML Subc utaneous Solution Pen-injector 09/22/2022 - 2024 Provider: Diagnosis: 1 injection weekly. Last Documented On 4 2:08PM [facility] Nucynta ER 100 MG Oral Tablet Extended Release 12 Hour 09/18/2022 - 10/20/2022 Provider: PAKO SHIN APRN-FPA, [facility] MELTER-BC Diagnosis: Polyneuropathy, unspecified One tablet twice a day Last Documented On 3 5:26PM By PAKO SHIN [facility] ; [facility] Pregabalin 150 MG Oral Capsule 09/08/2022 - 12/04/2022 Provider: PAKO SHIN APRN-FPOle, VARNISH MELTER-BC Diagnosis: Polyneuropathy, unspecified TAKE 1 CAPSULE BY MOUTH TWICE A DAY Last Documented On 3 9:51AM By Edwina MISTRY ; [facility] Baclofen 10 MG Oral Tablet 08/29/2022 - 09/26/2022 Provider: PAKO SHIN A PRN-FPA, VARNISH MELTER-BC Diagnosis: TAKE 1 TABLET BY MOUTH TWICE A DAY Last Documented On 3 4:49PM By PAKO SHIN [facility] ; [facility] Nucynta ER 100 MG Oral Tablet Extended Release 12 Hour 08/19/2022 - 09/18/2022 Provider: PAKO WAREFPOle VARNISH MELTER-BC Diagnosis: Polyneuropathy, unspecified One tablet twice a day Last Documented On 3 1:04PM By PAKO SHIN [facility] ; [facility] Baclofen 10 MG Oral Tablet 07/31/2022 - 08/29/2022 Provider: PAKO Handy PRN-FPA, VARN[facility] MELTER-BC Diagnosis: TAKE 1 TABLET BY MOUTH TWICE A DAY Last Documented On 3 10:08AM By PAKO SHIN [facility] ; [facility] Nucynta ER 100 MG Oral Tablet Extended Release 12 Hour 07/21/2022 - 08/19/2022 Provider: PAKO SHIN APRN-FPA, [facility] MELTER-BC Diagnosis: Polyneuropathy, unspecified One tablet twice a day Last Documented On 2 9:38AM By PAKO WINSLOWKARI ; [facility] Pregabalin 150 MG Oral Capsule 07/07/2022 - 09/08/2022 Provider: PAKO SHIN APRN-FPA [facility] MELTER-BC Diagnosis: Polyneuropathy, unspecified TAKE 1 CAPSULE BY MOUTH TWICE A DAY Last Documented On 3 4:58PM [facility] Baclofen 10 MG Oral Tablet 07/02/2022 - 07/31/2022 Provider: PAKO Handy PRN-FPA [facility] MELTER-BC Diagnosis: TAKE 1 TABLET BY MOUTH TWICE A DAY Last Documented On 2 3:22PM By PAKO SHIN [facility] ; [facility] Nucynta ER 100 MG Oral Tablet Extended Release 12 Hour 06/23/2022 - 07/21/2022 Provider: PAKO SHIN APRN-FPOle VARNISH MELTER-BC Diagnosis: Polyneuropathy, unspecified One tablet twice a day Last Documented On 2 12:23PM By PAKO SHIN [facility] ; [facility] Pregabalin 150 MG Oral Capsule 06/09/2022 - 07/07/2022 Provider: PAKO SHIN APRN-FPOle [facility] MELTER-BC Diagnosis: Polyneuropathy, unspecified TAKE 1 CAPSULE BY MOUTH TWICE A DAY Last Documented On 2 4:52PM By PAKO SHIN [facility] ; [facility] Baclofen 10 MG Oral Tablet 05/27/2022 - 07/02/2022 Provider: PAKO DAVILAN-FPOle VARNISH MELTER-BC Diagnosis: TAKE 1 TABLET BY MOUTH TWICE A DAY Last Documented On 2 10:06AM By PAKO SHIN [facility] ; [facility] Nucynta ER 100 MG Oral Tablet Extended Release 12 Hour 05/23/2022 - 06/23/2022 Provider: PAKO SHIN APRN-FPA VARNISH MELTER-BC Diagnosis: Polyneuropathy, unspecified One tablet twice a day Last Documented On 2 9:29AM By PAKO SHIN [facility] ; [facility] Nucynta ER 100 MG Oral Tablet Extended Release 12 Hour 05/22/2022 - 05/21/2022 Provider: PAKO G ALEIDA CHILD CARE GIVER-FPA, [facility]ARNISH MELTER-BC Diagnosis: Polyneuropathy, unspecified One tablet twice a day Last Documented On 2 5:08PM [facility] Valium 2 MG Oral Tablet 05/13/2022 - 07/03/2022 Provider: PAKO SHIN CHILD CARE GIVER-FPA VARNISH MELTER-BC 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, lumbar region 1 tablet approximately 1 marcela r before procedure Last Documented On 2 1:06PM By PAKO SHIN [facility] ; [facility] Baclofen 10 MG Oral Tablet 04/29/2022 - 05/27/2022 Provider: PAKO Handy PRN-FPA VARN[facility] MELTER-BC Diagnosis: TAKE 1 TABLET BY MOUTH TWICE A DAY Last Documented On 2 11:55AM By PAKO SHIN [facility] ; [facility] Valium 2 MG Oral Tablet 04/19/2022 - 05/13/2022 Provider: PAKO SHIN APRN-FPOle VARNISH MELTER-BC 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, lumbar region 1 tablet approximately 1 marcela r before procedure Last Documented On 2 2:05PM By PAKO SHIN [facility] ; [facility] Nucynta ER 100 MG Oral Tablet Extended Release 12 Hour 04/17/2022 - 05/21/2022 Provider: PAKO SHIN CHILD CARE GIVER-FPOle VARNISH MELTER-BC Diagnosis: Polyneuropathy, unspecified One tablet twice a day Last Documented On 2 9:28AM By PAKO SHIN [facility] ; [facility] Pregabalin 150 MG Oral Capsule 04/07/2022 - 06/09/2022 Provider: BISMARK SHEPPARD [facility] Diagnosis: Polyneuropathy, unspecified TAKE 1 CAPSULE BY MOUTH TWICE A DAY Last Documented On 2 11:50AM [facility] Nucynta ER 50 MG Oral Tablet Extended Release 12 Hour 03/14/2022 - 05/13/2022 Provider: PAKO SHIN A PRN-FPA, VARNISH MELTER-BC Diagnosis: One tablet twice a day Last Documented On 2 1:26PM By Edwina Fernandez Ole ; [facility] Baclofen 10 MG Oral Tablet 03/10/2022 - 04/29/2022 Provider: PAKO Handy PRN-FPA, [facility]ARN[facility] MELTER-BC Diagnosis: TAKE 1 TABLET BY MOUTH TWICE A DAY Last Documented On 2 12:33PM By PAKO SHIN [facility] ; [facility] Baclofen 10 MG Oral Tablet 02/27/2022 - 03/10/2022 Provider: PAKO Handy PRN-FPA, [facility]ARN[facility] MELTER-BC Diagnosis: TAKE 1 TABLET BY MOUTH TWICE A DAY Last Documented On 2 9:48AM By PAKO SHIN [facility] ; [facility] Pregabalin 150 MG Oral Capsule 02/04/2022 - 04/07/2022 Provider: PAKO SHIN CHILD CARE GIVER-FPA, VARNISH MELTER-BC Diagnosis: Polyneuropathy, unspecified 1 CAPSULE TWO TIMES A DAY Last Documented On 2 11:44AM By BISMARK SHEPPARD [facility] ; [facility] Pregabalin 100 MG Oral Capsule 02/03/2022 - 04/19/2022 Provider: PAKO Handy PRN-FPA, VARNISH MELTER-BC Diagnosis: 1 capsule three times a day Last Documented On 2 11:11AM By PAKO SHIN [facility] ; [facility] Baclofen 10 MG Oral Tablet 01/31/2022 - 02/27/2022 Provider: PAKO Handy PRN-FPA, VARNISH MELTER-BC Diagnosis: One tablet twice a day Last Documented On 2 12:48PM By PAKO SHIN [facility] ; [facility] Nucynta ER 50 MG Oral Tablet Extended Release 12 Hour 01/16/2022 - 03/14/2022 Provider: PAKO Handy PRN-FPA, VARNISH MELTER-BC Diagnosis: One tablet twice a day Last Documented On 2 11:05AM By PAKO SHIN [facility] ; [facility] Pregabalin 150 MG Oral Capsule 01/02/2022 - 01/31/2022 Provider: JESE GREWAL Diagnosis: Polyneuropathy, unspecified 1 CAPSULE TWO TIMES A DAY Last Documented On 2 11:52AM By PAKO SAWANT ; [facility] Pregabalin 75 MG Oral Capsule 12/05/2021 - 12/11/2021 Provider: JESE GREWAL Diagnosis: Polyneuropathy, unspecified take 1 capsule at night for 3 days then twice daily for 3 days Last Documented On 2 10:54AM By PAKO SAWANT ; [facility] Pregabalin 150 MG Oral Capsule 12/05/2021 - 04/17/2022 Provider: JESE GREWAL Diagnosis: Polyneuropathy, unspecified 1 CAPSULE TWO TIMES A DAY Last Documented On 2 10:17AM By Edwina MISTRY ; [facility] Vitamin D (Ergocalciferol) 1 .25 MG (61836 UT) Oral Capsule 12/03/2021 - 05/07/2023 Provider: Diagnosis: 1 capuslte a week. Last Documented On 3 10:46AM By Edwina MISTRY ; [facility] Baclofen 10 MG Oral Tablet 11/30/2021 - 04/17/2022 Pro vider: Diagnosis: Last Documented On 2 10:17AM By Edwina MISTRY ; [facility] Januvia 100 MG Oral Tablet 11/28/2021 - 10/02/2022 Pro vider: Diagnosis: Last Documented On 3 10:18AM By Edwina MISTRY ; [facility] DULoxetine HCl 60 MG Oral Ca psule Delayed Release Particles 10/02/2021 - 05/07/2023 Provider: Diagnosis: Last Documented On 3 10:46AM By Edwina MISTRY ; [facility] Medications Administered Includes: Administered Medications in patient's chart No Administered Medications Recorded Vital Signs Includes: Vital Signs from 12/20/2023 through 12/19/2024 Vital Name 2024 02:12P Blood Pressure Sitting R 110/64 BP Cuff Size Regular Pulse Rate-Sitting (bpm) 72 Temp-Temporal 97.2 Height (in) 62 Weight (lb) 168 Body Mass Index 30.7 Body Surface Area 1.8 Pain Level 8 Oxygen Saturation (%) 97 Last Documented: On 2024 2:13PM ; [facility] Results Includes: Results from 12/20/2023 through 12/19/2024 No Results Recorded For Specified Dates History of Present Illness History of Present Illness not supported for this document type No History of Present Illness Recorded Social History Description Last Updated Single 12/05/2021 Last Documented On 2 11:06AM ; [facility] Current smoker 12/05/2021 Last Documented On 11:06AM ; [facility] Smoking Status Unknown Procedures and Surgical History Surgical History Last Updated Prior surgery [id number] 11/2010 ~Spinal Cord Stimulator 11/201812/05/2021 Last Documented On 11:06AM ; [facility] Medical History Includes: Medical History in patient's chart Description Last Updated Has a fear of falling. 2024 Last Documented On 4 9:02AM ; [facility] Has had a fall in the last 12 months. Last Documented On 4 4:52PM ; [facility] Kidney Failure, neuropathy, osteoarthrit is, 12/05/2021 Last Documented On 2 11:06AM ; [facility] Diabetes 12/05/2021 Last Documented On 2 11:06AM ; [facility] History of arthritis 12/05/2021 Last Documented On 2 11:06AM ; [facility] Surgery 12/05/2021 Last Documented On 2 11:06AM ; [facility] Family History Includes: Family History in patient's chart Description Last Updated Family history of bleeding problems 11/22 Last Documented On 2 11:06AM ; [facility] Family history of kidney disease Last Documented On 2 11:06AM ; [facility] Family history of heart disease 12/06/19 Last Documented On 2 11:06AM ; [facility] Review of Systems Review of Systems not supported for this document type No Review of Systems Recorded Mental Status No Mental Status Recorded Functional Status No Functional Status Recorded Physical Exam Physical Exam not supported for this document type No Physical Exam Recorded Allergies Includes: Active, inactive, and resolved Allergies Substance Type Reaction Onset Date Resolved Date Statu s Morphine Derivatives Allergy 12/05/2021 Active Last Documented On 4 3:31PM ; [facility] Codeine and Related Allergy 12/05/2021 Active Last Documented On 4 3:31PM ; [facility] Encounters Includes: Encounters from 12/20/2023 through 12/19/2024 Encounter Provider Location Date Check-In Time Check-Out Time Diagnosis RX ISSUE/REFILL PAKO SHIN CHILD CARE GIVER-FPA, VARNISH MELTER-BC 01/25/20 24 2024 1:11PM 2024 11:59PM RX ISSUE/REFILL PAKO SHIN CHILD CARE GIVER-FPOle [facility] 01/19/20 24 2024 12:35PM 2024 11:59PM PAIN MANAGEMENT FOLLOW UP PAKO SHIN CHILD CARE GIVER-FPA, VARNISH MELTER-BC [facility] 01/12/20 1:53PM 2:43PM Polyneuropathy, Chronic Pain Syndrome,Sacroi liitis,Spondylo sis,Orthopedics Postsurgical Arthrodesis Status,Lumbar Radiculopathy,H ip Pain, Unspecified,Benjamin g Term Use of Opiate Analgesic,Dorsa lgia RX ISSUE/REFILL PAKO SHIN CHILD CARE GIVER-FPA, [facility]ARNISH MELTER-BC 12/21/19 24 08/06/2023 9:45AM 10/05/2023 11:59PM Insurance Includes: Active Insurance Policies Plan Name Member ID Group # Subscriber Relationship Effect mattie Dates 1 - MEDICARE PART A CLAIMS/NGS [id number] MONTEZ Olivas 2 - MEDICAID OF [place] MEDICARE SECOND [id number] MONTEZ Olivas Clinical Notes Includes: Signed Clinical Notes starting from 09/12/2022 * Progress note Date Encounter Last Documented by 01/25/2024 RX ISSUE/REFILL Last documented on 01/25/2024; 2:42 PM, PAKO SHIN APRN-FPA, VARNISH MELTER-BC; [facility] Active Problems & Conditions - Diabetes Mellitus - Risk: Dvt/pulmonary Embolism Chief Complaint Phone Call - Chief Concern: Reason for call:RX REFILL LAST FILL WAS ONLY FOR A PARTIAL D/T INSURANCE. FOR 7 DAYS. LETTER IN CHART Patient is requesting a refill on NUCYNTA ER 150 ~How is medication taken? BID ~How many are left?4 Risk Assessment Score: MOD ~[place]PMP:01/20/24 PARTIAL FILL Last Office Visit: 01/12/24 ~ pt phone # for Return call: ~Last Drug Screen:10/05/23 ~Date/Initials: 01/25/24 CB. Current Medication - Alpha-Lipoic Acid 600 MG Oral Capsule 1 capsule daily, 90 days, 0 refills - Atorvastatin Calcium 80 MG Oral Tablet [...] History Heart disease Bleeding problems Kidney disease Plan StartCited - Other Nucynta ER 150 MG tablet One tablet twice a day, 30 days, 0 refills EndCited Care Team - TOMER LÓPEZ APN - Primary Care Health Reminders - Assess Tobacco Use satisfied 01/25/2024. * Progress note Date Encounter Last Documented by 01/19/2024 RX ISSUE/REFILL Last documented on 01/19/2024; 1:11 PM, PAKO SHIN APRN-JEWELS, FAYE-KARI; [facility] Active Problems & Conditions - Diabetes Mellitus - Risk: Dvt/pulmonary Embolism Chief Complaint Phone Call - Chief Concern: Reason for call:RX REFILL Patient is requesting a refill on NUCYNTA ER 150 ~How is medication taken? BID ~How many are left?2 Risk Assessment Score: MOD ~ILPMP:12/21/23 Last Office Visit: 01/12/24 ~ pt phone # for Return call: [phone] ~Last Drug Screen:10/05/23 ~Date/Initials: 01/19/24 CB. Current Medication - Alpha-Lipoic Acid 600 MG Oral Capsule 1 capsule daily, 90 days, 0 refills - Atorvastatin Calcium 80 MG Oral Tablet [...] History Heart disease Bleeding problems Kidney disease Plan StartCited - Other Nucynta ER 150 MG tablet One tablet twice a day, 30 days, 0 refills EndCited Care Team - TOMER LÓPEZ APN - Primary Care Health Reminders - Assess Tobacco Use satisfied 01/19/2024. * Progress note Date Encounter Last Documented by 2024 PAIN MANAGEMENT FOLLOW UP Last d ocumented on 01/13/2024; 9:02 AM, PAKO SHIN APRN-FPA, VARNISH MELTER-BC; [facility] Active Problems & Conditions - [...] neuropathy. She previously saw pain management in [facility], however they no longer take her insurance. [...] in lower extremities. No focal neurologic deficit. [id number] normal bilaterally. 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 This and review of the [facility] database shows no evidence of misuse, abuse, [...] notes, laboratory data, patient self-report questionnaires, and [place] prescription monitoring database entries. Significant social barriers [...] score 15, and impression and score 0; [63334] Established outpatient, medically appropriate H&P, moderate level [...] but may be subject to typographical or cargo and container inspector errors. Verify all diagnoses, medications, dosages, and patient instructions with patient and/or the originator of this document. Care Team - TOMER LÓPEZ APN - Primary Care Health Reminders - Assess BMI satisfied 2024. - Assess Tobacco Use satisfied 2024. - Depression Screening satisfied 2024. - Smoking & Tobacco Cessation Intervention and Counseling satisfied 2024. * Progress note Date Encounter Last Documented by 12/21/2023 RX ISSUE/REFILL Last documented on 12/21/2023; 11:16 AM, PAKO SHIN APRN-FPA, FAYE-KARI; [facility] Active Problems & Conditions - Diabetes Mellitus - Risk: Dvt/pulmonary Embolism Chief Complaint Phone Call - Chief Concern: Reason for call:RX REFILL Patient is requesting a refill on ~How is medication taken? NUCYNTA ER 150 ~How many are left?0 OUT SINCE THURSDAY THE Risk Assessment Score: MOD ~ILPMP:11/20/23 Last Office Visit: 10/05/23 ~ pt phone # for Return call: [phone] ~Last Drug Screen:10/05/23 ~Date/Initials: 12/21/23 CB. Current Medication - Atorvastatin Calcium 80 MG [...] a day 5 days, 0 refills - Metanx [id number] MG Oral Capsule 1 CAPSULE TWO TIMES A DAY, 30 days, 5 refills - Narcan 4 MG/0.1ML Nasal Liquid 1 spray intranasally for suspected overdose, 30 days, 0 refills - Prazosin HCl 2 [...] tablet daily 90 days, 0 refills - Trulicity 0.75 MG/0.5ML Subcutaneous Solution Pen-injector as directed 1 injection weekly., 28 days, 0 refills Past Medical/Surgical History Reported: Surgery. Medical: Diabetes. Surgical / Procedural: Prior surgery L5-S1 11/2010 Spinal Cord Stimulator 11/2018. Physical Trauma: Has had a fall in the last 12 months. Denies a fear of falling. Diagnoses: Arthritis Kidney Failure, neuropathy, osteoarthritis, Social History Tobacco use: Current smoker. Marital: Single. Allergies - Codeine and Related - Morphine Derivatives Family History Heart disease Bleeding problems Kidney disease Plan StartCited - Other Nucynta ER 150 MG tablet One tablet twice a day, 30 days, 0 refills EndCited Care Team - TOMER LÓPEZ APN - Primary Care Health Reminders - Assess Tobacco Use satisfied 12/21/2023.
--- OUTSIDE RECORDS SUMMARY | 2024-12-19 11:38 | XMS_ITS | Clinical Summary ---
Author Organization [facility] Address [address] [place] [address] Phone Care Team Providers Care District Plant Supervisor Name Role Phone TOMER LÓPEZ APN [facility] Primary Care Provider [phone] Reason for Visit and Chief Complaint RX ISSUE/REFILL Problems Includes: Problems addressed during this encounter and other active Problems All Visits Onset Date Resolved Date Provider Condition S tatus Diabetes Mellitus Unknown JESE GREWAL Active Last Documented On 2 10:27AM ; [facility] Risk: Dvt/pulmonary Embolism Unknown JESE GREWAL Active Last Documented On 2 10:27AM ; [facility] Plan of Treatment No Plan of Treatment Recorded Assessments Includes: Assessments from this encounter No Assessments Recorded Medical Equipment - Implanted Devices Includes: Current Devices No Medical Equipment Recorded Medications Includes: Medications discussed during this encounter and other current Medications New / Renewed during this visit JESE GREWAL on 01/19/2024 Nucynta ER 150 MG Oral Tablet Extended Release 12 Hour Provider: JESE ALFORD 30 day supply: 60 tablet, 0 refills Diagnosis: One tablet twice a day Pharmacy: [id number], [address] - Last Documented On 4 2:42PM By PAKO SAWANT ; [facility] Current Medications (continue as prescribed) Nucynta ER 150 MG Oral Table t Extended Release 12 Hour 01/25/2024 [facility] Diagnosis: One tablet twice a day Last Documented On 4 2:54PM By PAKO SAWANT ; [facility] Alpha-Lipoic Acid 600 MG Oral Capsule 2024 [facility] Diagnosis: Polyneuropathy, unspecified 1 capsule daily Last Documented On 4 2:30PM [facility] Baclofen 10 MG Oral Tablet 2024 Provider: PAKO DONIS [facility] Diagnosis: Dorsalgia, unspe cified TAKE 1 TABLET BY MOUTH TWICE A DAY Last Documented On 4 2:30PM By PAKO SAWANT ; [facility] Pregabalin 200 MG Oral Capsule 2024 Provider: PAKO HARRIS [facility] Diagnosis: Polyneuropathy, unspecified TAKE 1 CAPSULE BY MOUTH TWICE A DAY Last Documented On 4 2:30PM [facility] Ozempic (0.25 or 0.5 MG/DOSE ) 2 MG/3ML Subcutaneous Solution Pen-injector 01/04/2024 Provider: JOE EWING DO Diagnosis: Last Documented On 4 2:26PM By PAKO SAWANT ; [facility] QUEtiapine Fumarate 50 MG Oral Tablet 08/04/2023 Pro vider: Diagnosis: Last Documented On 3 1:22PM By PAKO MCKINNEYKARI ; [facility] Gabapentin 100 MG Oral Capsule 07/20/2023 Provider: Diagnosis: Last Documented On 3 1:22PM By PAKO MCKINNEYKARI ; [facility] LORazepam 0.5 MG Oral Tablet 07/20/2023 Provider: Diagnosis: Last Documented On 3 1:22PM By PAKO SAWANT ; [facility] Prazosin HCl 2 MG Oral Capsule 06/16/2023 Provider: Diagnosis: Last Documented On 3 1:22PM By PAKO SAWANT ; [facility] traZODone HCl 50 MG Oral Tablet 06/15/2023 Provider: Diagnosis: Last Documented On 3 1:22PM By PAKO SAWANT ; [facility] Narcan 4 MG/0.1ML Nasal Liquid 05/07/2023 Provider: JESE GREWAL Diagnosis: group home (curre nt) use of opiate analgesic 1 spray intranasally for yris pected overdose Last Documented On 3 1:22PM By PAKO SAWANT ; [facility] Sertraline HCl 100 MG Oral Tablet 05/04/2023 Provide r: Diagnosis: Last Documented On 3 10:58AM By PAKO SAWANT ; [facility] Jardiance 10 MG Oral Tablet 11/28/2021 Provider: Diagnosis: Last Documented On 2 10:54AM By PAKO SAWANT ; [facility] Eliquis 5 MG Oral Tablet 11/28/2021 Provider: Diagnosis: Last Documented On 2 10:54AM By PAKO SAWANT ; [facility] Lantus SoloStar 100 UNIT/ML Subcutaneous Solutio n Pen-injector 11/11/2021 Provider: Diagnosis: 40 units once a day. Last Documented On 2 10:54AM By PAKO SAWANT ; [facility] Atorvastatin Calcium 80 MG Oral Tablet 10/02/2021 Pr ovider: Diagnosis: Last Documented On 2 10:54AM By PAKO SAWANT ; [facility] Past Medications on file Pregabalin 75 MG Oral Capsule 12/05/2021 - 12/11/2021 Provider: JESE GREWAL Diagnosis: Polyneuropathy, unspecified take 1 capsule at night for 3 days then twice daily for 3 days Last Documented On 2 10:54AM By PAKO SAWANT ; [facility] Medications Administered Includes: Administered Medications from this encounter No Administered Medications Recorded Results Includes: Results discussed during this encounter No Results Recorded For Specified Dates History of Present Illness Includes: History of Present Illness from this encounter No History of Present Illness Recorded Social History Description Last Updated Single 12/05/2021 Last Documented On 4 12:36PM ; [facility] Current smoker 12/05/2021 Last Documented On 4 12:36PM ; [facility] Smoking Status Unknown Procedures and Surgical History Surgical History Last Updated Prior surgery L5-S1 11/2010 ~Spinal Cord Stimulator 11/201812/05/2021 Last Documented On 4 12:36PM ; [facility] Medical History Includes: Medical History addressed during this encounter Description Last Updated Has a fear of falling. 2024 Last Documented On 4 12:36PM ; [facility] Has had a fall in the last 12 months. Last Documented On 4 12:36PM ; [facility] Kidney Failure, neuropathy, osteoarthrit is, 12/05/2021 Last Documented On 4 12:36PM ; [facility] Diabetes 12/05/2021 Last Documented On 4 12:36PM ; [facility] History of arthritis 12/05/2021 Last Documented On 4 12:36PM ; [facility] Surgery 12/05/2021 Last Documented On 4 12:36PM ; [facility] Family History Includes: Family History addressed during this encounter Description Last Updated Family history of bleeding problems 11/22 Last Documented On 4 12:36PM ; [facility] Family history of kidney disease 022 Last Documented On 4 12:36PM ; [facility] Family history of heart disease 12/06/19 22 Last Documented On 4 12:36PM ; [facility] Review of Systems Includes: Review of Systems from this encounter No Review of Systems Recorded Mental Status Includes: Mental Status from this encounter No Mental Status Recorded Functional Status Includes: Functional Status from this encounter No Functional Status Recorded Physical Exam Includes: Physical Exam from this encounter No Physical Exam Recorded Allergies Includes: Active Allergies Substance Type Reaction Onset Date Resolved Date Statu s Morphine Derivatives Allergy 12/05/2021 Active Last Documented On 4 3:31PM ; [facility] Codeine and Related Allergy 12/05/2021 Active Last Documented On 4 3:31PM ; [facility] Encounters Encounter Provider Location Date Check-In Time Check-Out Time Diagnosis RX ISSUE/REFILL PAKO Trevino ALEIDA INVENTORY CONTROL ASSISTANT-FPA, DRESS FITTER-BC 01/19/2024 12:35PM 11:59PM Insurance Includes: Active Insurance Policies Plan Name Member ID Group # Subscriber Relationship Effect mattie Dates 1 - MEDICARE PART A CLAIMS/NGS [id number] MONTEZ MAGUIRE Self 2 - MEDICAID [place] MEDICARE SECOND [id number] MONTEZ Olivas Clinical Notes Includes: Clinical Notes from this encounter * Progress note Date Encounter Last Documented by 01/19/2024 RX ISSUE/REFILL Last documented on 01/19/2024; 1:11 PM, PAKOGIOVANNA SHIN INVENTORY CONTROL ASSISTANT-FPA, DRESS FITTER-BC; [facility] Active Problems & Conditions - Diabetes Mellitus - Risk: Dvt/pulmonary Embolism Chief Complaint Phone Call - Chief Concern: Reason for call:RX REFILL Patient is requesting a refill on NUCYNTA ER 150 ~How is medication taken? BID ~How many are left?2 Risk Assessment Score: MOD ~ILPMP:12/21/23 Last Office Visit: 01/12/24 ~ pt phone # for Return call: [phone] ~Last Drug Screen:10/05/23 ~Date/Initials: 01/19/24 CB. Current [...]
--- OUTSIDE RECORDS SUMMARY | 2024-12-19 11:38 | XMS_ITS | Clinical Summary ---
Author Organization [facility] Address [address] [place] [address] Phone Care Team Providers Care Electric Power Line Examiner Name Role Phone TOMER LÓPEZ APN Primary Care Provider [phone] Reason for Visit and Chief Complaint RX ISSUE/REFILL Problems Includes: Problems addressed during this encounter and other active Problems All Visits Onset Date Resolved Date Provider Condition S tatus Diabetes Mellitus Unknown PAKO SHIN BUILDING ECONOMIST-FPA BIOMETRICS TECHNICIAN-BC Active Last Documented On 2 10:27AM ; [facility] Risk: Dvt/pulmonary Embolism Unknown PAKO SHIN BUILDING ECONOMIST-FPA BIOMETRICS TECHNICIAN-BC Active Last Documented On 2 10:27AM ; [facility] Plan of Treatment No Plan of Treatment Recorded Assessments Includes: Assessments from this encounter No Assessments Recorded Medical Equipment - Implanted Devices Includes: Current Devices No Medical Equipment Recorded Medications Includes: Medications discussed during this encounter and other current Medications Discontinued / Stopped on this date PAKO SHIN APRN-FPNAYLA HandyP-BC on 11/17/2023 Nucynta ER 150 MG Oral Table t Extended Release 12 Hour Provider: PAKO SHIN APRN-FPNAYLA HandyPAzucenaBC Diagnosis: Last Documented On 4 11:15AM By PAKO SAWANT ; [facility] New / Renewed during this visit PAKO SHIN APRN-FPOle BIOMETRICS TECHNICIAN-BC on 12/21/2023 Nucynta ER 150 MG Oral Tablet Extended Release 12 Hour Provider: PAKO WARE FPNAYLA HandyP-BC 30 day supply: 60 tablet, 0 refills Diagnosis: One tablet twice a day Pharmacy: [id number], [address] - Last Documented On 4 1:10PM By PAKO MCKINNEYKARI ; [facility] Current Medications (continue as prescribed) Nucynta ER 150 MG Oral Table t Extended Release 12 Hour 01/25/2024 Provider: NAYLA GREWALPJOHANA Diagnosis: One tablet twice a day Last Documented On 4 2:54PM By PAKO SAWANT ; [facility] Alpha-Lipoic Acid 600 MG Oral Capsule 2024 Provider: [facility] Diagnosis: Polyneuropathy, unspecified 1 capsule daily Last Documented On 4 2:30PM By PAKO SAWANT ; [facility] Baclofen 10 MG Oral Tablet 2024 Provider: [facility] DONIS [facility] Diagnosis: Dorsalgia, unspe cified TAKE 1 TABLET BY MOUTH TWICE A DAY Last Documented On 4 2:30PM By PAKO SAWANT ; [facility] Pregabalin 200 MG Oral Capsule 2024 Provider: [facility] Diagnosis: Polyneuropathy, unspecified TAKE 1 CAPSULE BY MOUTH TWICE A DAY Last Documented On 4 2:30PM By PAKO MCKINNEYKARI ; [facility] Ozempic (0.25 or 0.5 MG/DOSE ) 2 MG/3ML Subcutaneous Solution Pen-injector 01/04/2024 Provider: JOE EWING DO Diagnosis: Last Documented On 4 2:26PM By PAKO SAWANT ; [facility] QUEtiapine Fumarate 50 MG Oral Tablet 08/04/2023 Pro vider: Diagnosis: Last Documented On 3 1:22PM By PAKO SAWANT ; [facility] Gabapentin 100 MG Oral Capsule 07/20/2023 Provider: Diagnosis: Last Documented On 3 1:22PM [facility] ; [facility] LORazepam 0.5 MG Oral Tablet 07/20/2023 Provider: Diagnosis: Last Documented On 3 1:22PM By PAKO WINSLOWKARI ; [facility] Prazosin HCl 2 MG Oral Capsule 06/16/2023 Provider: Diagnosis: Last Documented On 3 1:22PM By PAKO WINSLOWKARI ; [facility] traZODone HCl 50 MG Oral Tablet 06/15/2023 Provider: Diagnosis: Last Documented On 3 1:22PM By [facility]IN [facility] ; [facility] Narcan 4 MG/0.1ML Nasal Liquid 05/07/2023 Provider: PAKO HARRIS [facility] Diagnosis: longterm (curre nt) use of opiate analgesic 1 spray intranasally for yris pected overdose Last Documented On 3 1:22PM By PAKO SHIN [facility] ; [facility] Sertraline HCl 100 MG Oral Tablet 05/04/2023 Provide r: Diagnosis: Last Documented On 3 10:58AM By PAKO SHIN [facility] ; [facility] Jardiance 10 MG Oral Tablet 11/28/2021 Provider: Diagnosis: Last Documented On 2 10:54AM By PAKO SHIN [facility] ; [facility] Eliquis 5 MG Oral Tablet 11/28/2021 Provider: Diagnosis: Last Documented On 2 10:54AM By PAKO SHIN [facility] ; [facility] Lantus SoloStar 100 UNIT/ML Subcutaneous Solutio n Pen-injector 11/11/2021 Provider: Diagnosis: 40 units once a day. Last Documented On 2 10:54AM By PAKO WINSLOWKARI ; [facility] Atorvastatin Calcium 80 MG Oral Tablet 10/02/2021 Pr ovider: Diagnosis: Last Documented On 2 10:54AM By PAKO WINSLOWPJOHANA ; [facility] Past Medications on file Pregabalin 75 MG Oral Capsule 12/05/2021 - 12/11/2021 Provider: FAYE GREWAL-BC Diagnosis: Polyneuropathy, unspecified take 1 capsule at night for 3 days then twice daily for 3 days Last Documented On 2 10:54AM By PAKO WINSLOWP-BC ; [facility] Medications Administered Includes: Administered Medications from this encounter No Administered Medications Recorded Results Includes: Results discussed during this encounter No Results Recorded For Specified Dates History of Present Illness Includes: History of Present Illness from this encounter No History of Present Illness Recorded Social History Description Last Updated Single 12/05/2021 Last Documented On 4 9:44AM ; [facility] Current smoker 12/05/2021 Last Documented On 4 9:44AM ; [facility] Smoking Status Unknown Procedures and Surgical History Surgical History Last Updated Prior surgery L5-S1 11/2010 ~Spinal Cord Stimulator 11/201812/05/2021 Last Documented On 4 9:44AM ; [facility] Medical History Includes: Medical History addressed during this encounter Description Last Updated Denies a fear of falling. 2024 Last Documented On 4 9:44AM ; [facility] Has had a fall in the last 12 months. Last Documented On 4 9:44AM ; [facility] Kidney Failure, neuropathy, osteoarthrit is, 12/05/2021 Last Documented On 4 9:44AM ; [facility] Diabetes 12/05/2021 Last Documented On 4 9:44AM ; [facility] History of arthritis 12/05/2021 Last Documented On 4 9:44AM ; [facility] Surgery 12/05/2021 Last Documented On 4 9:44AM ; [facility] Family History Includes: Family History addressed during this encounter Description Last Updated Family history of bleeding problems 11/22 Last Documented On 4 9:44AM ; [facility] Family history of kidney disease 022 Last Documented On 4 9:44AM ; [facility] Family history of heart disease 12/06/19 22 Last Documented On 4 9:44AM ; [facility] Review of Systems Includes: Review of Systems [...] Active Last Documented On 4 3:31PM ; [facility] Codeine and Related Allergy 12/05/2021 Active Last Documented On 4 3:31PM ; [facility] Encounters Encounter Provider Location Date Check-In Time Check-Out Time Diagnosis RX ISSUE/REFILL PAKO HARRIS, JESE 12/21/2023 9:45AM 11:59PM Insurance Includes: Active Insurance Policies Plan Name Member ID Group # Subscriber Relationship Effect mattie Dates 1 - MEDICARE PART A CLAIMS/NGS [id number] MONTEZ Olivas 2 - [place] MEDICARE SECOND [id number] MONTEZ Olivas Clinical Notes Includes: Clinical Notes from this encounter * Progress note Date Encounter Last Documented by 12/21/2023 RX ISSUE/REFILL Last documented on 12/21/2023; 11:16 AM, PAKO HARRIS, FAYE-KARI; [facility] Active Problems & Conditions - Diabetes Mellitus - Risk: Dvt/pulmonary Embolism Chief Complaint Phone Call - Chief Concern: Reason for call:RX REFILL Patient is requesting a refill on ~How is medication taken? NUCYNTA ER 150 ~How many are left?0 OUT SINCE THURSDAY THE Risk Assessment Score: MOD ~[place]:11/20/23 Last Office Visit: 10/05/23 ~ pt phone # for Return call: [phone] ~Last Drug Screen:10/05/23 ~Date/Initials: 12/21/23 CB. Current [...]
--- OUTSIDE RECORDS SUMMARY | 2024-12-19 11:38 | XMS_ITS ---
Care Plan - [facility] Created on: December 19, 2024 MONTEZ MAGUIRE : 1970 Sex: Female Author Organization [facility] Address [address] [place] [address] Phone Care Team Providers Care Strategy Manager Name Role Phone TOMER LÓPEZ APN Primary Care Provider [phone]
--- OUTSIDE RECORDS SUMMARY | 2024-12-19 11:39 | XMS_ITS | Encounter Summary ---
Author Organization [facility] Address [address] [place] [address] Care Team Providers Care Blower Operator Name Role Phone Bernie Madsen MD Primary Care Provider [phone] Nae Lewis MD Primary Care Provider Unavailab Bernie Cope MD Primary Care Provider [phone] Nae Lewis MD Primary Care Provider Unavailab Nae Osullivan MD Primary Care Provider Unavailab Nae Osullivan MD Unavailable Unavailable Ely Gonsales ASSEMBLER FINAL-STOVE POLISHER Unavailable [phone] Luis Bowling MD Unavailable Unavailable Pam Kelly MD Unavailable [phone] Oleg Martinez MD Unavailable [phone] Carmelo Bone MD Unavailable Jomar Salgado MD Unavailable [phone] Luis Shanks MD Unavailable [phone] Pcp, [facility]- Primary Care Provider Unavailable Bernie Madsen MD Unavailable [phone] Reason for Visit * Reason Onset Date Comments MEDICATION REFILL 08/09/2018 Encounter Details Date Type Department Care Team (Late st Contact Info) Description 08/09/2018 Refill Internal Medicine [facility] at 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 Answer Date of Assessment Author No 03/03/2018 6:59 AM Annie Dangelo RN * Is person blind or have serious difficulty seeing? Answer Date of Assessment Author No 03/03/2018 6:59 AM Annie Velázquez RN * Does person have serious difficulty walking/climbing stairs? Answer Date of Assessment Author No 03/03/2018 6:59 AM [facility] Annie Moreira RN * Does person have difficulty dressing/bathing? Answer Date of Assessment Author No 03/03/2018 6:59 AM [facility] Annie Moreira RN * Does person have difficulty doing errands alone? Answer Date of Assessment Author No 03/03/2018 6:59 AM Annie Velázquez RN documented as of this encounter Mental Status * Does person have difficulty concentrating/remembering/making decisions? Answer Entry Date Author No 03/03/2018 6:59 AM Annie Velázquez RN documented in this encounter Plan of Treatment Not on file documented as of this encounter Goals Goal Patient Goal Type Associated Problems [...] progress Barriers to goal attainment: None identified documented as of this encounter Visit Diagnoses Not on filedocumented in this encounter Care Teams Blower Operator Relationship Specialty Start Date End Date Bernie Madsen MD PCP - General Internal Medicine 10/16/15 01/25/19 Nae Lewis MD PCP - General Internal Medicine 01/26/19 01/26/19 Bernie Madsen MD PCP - General 01/27/19 01/27/19 Nae Lewis MD PCP - General Internal Medicine 01/28/19 05/15/20 Nae Lewis MD PCP - General Internal Medicine 05/16/20 06/22/24 Ely Gonsales, ASSEMBLER FINAL-[employer]OVE POLISHER [address] [place] [address] PCP - Attributed-[facility] 02/22/20 02/09/23 Pcp, [facility]- PCP - General 06/23/24 Bernie Madsen MD [address] [address] PCP - Attributed-[facility] 02/06/17 01/25/19 Nae Lewis MD Internal Medicine 05/16/20 Luis Bowling MD [address] [place] [address] Ophthalmology 03/19/17 Pam Kelly MD [address] [place] [address] Oncology 03/19/17 Oleg Martinez MD [address] [facility] [address] [place] [id number] Nephrology 03/19/17 Carmelo Bone MD [address] [facility] [address] [place] [address] Anesthesiology 05/04/18 Jomar Salgado MD [address] [facility] [address] [address] [place] [address] Cardiovascular Disease 03/24/19 Luis Shanks MD [address] [facility] [address] [place] [address] Anesthesiology 10/26/20 documented as of this encounter
--- OUTSIDE RECORDS SUMMARY | 2024-12-19 11:39 | XMS_ITS | Clinical Summary ---
Author Organization [facility] Address [address] [place] [address] Phone Care Team Providers Care Burlap Roll Coverer Name Role Phone TOMER LÓPEZ APN Primary Care Provider [phone] Reason for Visit and Chief Complaint RX ISSUE/REFILL Problems Includes: Problems addressed during this encounter and other active Problems All Visits Onset Date Resolved Date Provider Condition S tatus Diabetes Mellitus Unknown PAKO SHIN BUILDING OPERATOR-FPA BUSINESS SERVICES OFFICER-BC Active Last Documented On 2 10:27AM ; [facility] Risk: Dvt/pulmonary Embolism Unknown PAKO SHIN BUILDING OPERATOR-FPA BUSINESS SERVICES OFFICER-BC Active Last Documented On 2 10:27AM ; [facility] Plan of Treatment No Plan of Treatment Recorded Assessments Includes: Assessments from this encounter No Assessments Recorded Medical Equipment - Implanted Devices Includes: Current Devices No Medical Equipment Recorded Medications Includes: Medications discussed during this encounter and other current Medications Discontinued / Stopped on this date PAKO SHIN APRN-FPNAYLA HandyP-BC on 10/19/2023 Nucynta ER 150 MG Oral Table t Extended Release 12 Hour Provider: PAKO WAREFPRASHAWN HandyBC Diagnosis: Last Documented On 4 2:55PM By PAKO SAWANT ; [facility] New / Renewed during this visit PAKO SHIN APRN-FPOle BUSINESS SERVICES OFFICER-BC on 11/17/2023 Nucynta ER 150 MG Oral Tablet Extended Release 12 Hour Provider: PAKO WARE FPNAYLA HandyPAzucenaBC 30 day supply: 60 tablet, 0 refills Diagnosis: One tablet twice a day Pharmacy: [id number], [address] - Last Documented On 4 11:15AM [facility] ; [facility] Current Medications (continue as prescribed) Nucynta ER 150 MG Oral Table t Extended Release 12 Hour 01/25/2024 Provider: JESE GREWAL Diagnosis: One tablet twice a day Last Documented On 4 2:54PM By PAKO SAWANT ; [facility] Alpha-Lipoic Acid 600 MG Oral Capsule 2024 [facility] Diagnosis: Polyneuropathy, unspecified 1 capsule daily Last Documented On 4 2:30PM By PAKO SAWANT ; [facility] Baclofen 10 MG Oral Tablet 2024 Provider: [facility] Diagnosis: Dorsalgia, unspe cified TAKE 1 TABLET BY MOUTH TWICE A DAY Last Documented On 4 2:30PM By PAKO SAWANT ; [facility] Pregabalin 200 MG Oral Capsule 2024 Provider: [facility] Diagnosis: Polyneuropathy, unspecified TAKE 1 CAPSULE BY MOUTH TWICE A DAY Last Documented On 4 2:30PM By PAKO SAWANT ; [facility] Ozempic (0.25 or 0.5 MG/DOSE ) 2 MG/3ML Subcutaneous Solution Pen-injector 01/04/2024 Provider: JOE EWING DO Diagnosis: Last Documented On 4 2:26PM By PAKO SAWANT ; [facility] QUEtiapine Fumarate 50 MG Oral Tablet 08/04/2023 Pro vider: Diagnosis: Last Documented On 3 1:22PM By PAKO SAWANT ; [facility] Gabapentin 100 MG Oral Capsule 07/20/2023 Provider: Diagnosis: Last Documented On 3 1:22PM [facility] ; [facility] LORazepam 0.5 MG Oral Tablet 07/20/2023 Provider: Diagnosis: Last Documented On 3 1:22PM By PAKO WINSLOWKARI ; [facility] Prazosin HCl 2 MG Oral Capsule 06/16/2023 Provider: Diagnosis: Last Documented On 3 1:22PM By PAKO WINSLOWKARI ; [facility] traZODone HCl 50 MG Oral Tablet 06/15/2023 Provider: Diagnosis: Last Documented On 3 1:22PM By [facility] ; [facility] Narcan 4 MG/0.1ML Nasal Liquid 05/07/2023 Provider: PAKO HARRIS [facility] Diagnosis: alf (curre nt) use of opiate analgesic 1 spray intranasally for yris pected overdose Last Documented On 3 1:22PM By [facility]IN [facility] ; [facility] Sertraline HCl 100 MG Oral Tablet 05/04/2023 Provide r: Diagnosis: Last Documented On 3 10:58AM By [facility]KO [facility]IN [facility] ; [facility] Jardiance 10 MG Oral Tablet 11/28/2021 Provider: Diagnosis: Last Documented On 2 10:54AM By [facility]KO [facility]IN [facility] ; [facility] Eliquis 5 MG Oral Tablet 11/28/2021 Provider: Diagnosis: Last Documented On 2 10:54AM By [facility]KO SHIN [facility] ; [facility] Lantus SoloStar 100 UNIT/ML Subcutaneous Solutio n Pen-injector 11/11/2021 Provider: Diagnosis: 40 units once a day. Last Documented On 2 10:54AM By PAKO WINSLOWKARI ; [facility] Atorvastatin Calcium 80 MG Oral Tablet 10/02/2021 Pr ovider: Diagnosis: Last Documented On 2 10:54AM By PAKO WINSLOWPJOHANA ; [facility] Past Medications on file Pregabalin 75 MG Oral Capsule 12/05/2021 - 12/11/2021 Provider: JESE GREWAL Diagnosis: Polyneuropathy, unspecified take 1 capsule at night for 3 days then twice daily for 3 days Last Documented On 2 10:54AM By PAKO MCKINNEY-BC ; [facility] Medications Administered Includes: Administered Medications from this encounter No Administered Medications Recorded Results Includes: Results discussed during this encounter No Results Recorded For Specified Dates History of Present Illness Includes: History of Present Illness from this encounter No History of Present Illness Recorded Social History Description Last Updated Single 12/05/2021 Last Documented On 4 2:33PM ; [facility] Current smoker 12/05/2021 Last Documented On 4 2:33PM ; [facility] Smoking Status Unknown Procedures and Surgical History Surgical History Last Updated Prior surgery L5-S1 11/2010 ~Spinal Cord Stimulator 11/201812/05/2021 Last Documented On 4 2:33PM ; [facility] Medical History Includes: Medical History addressed during this encounter Description Last Updated Denies a fear of falling. 2024 Last Documented On 4 2:33PM ; [facility] Has had a fall in the last 12 months. Last Documented On 4 2:33PM ; [facility] Kidney Failure, neuropathy, osteoarthrit is, 12/05/2021 Last Documented On 4 2:33PM ; [facility] Diabetes 12/05/2021 Last Documented On 4 2:33PM ; [facility] History of arthritis 12/05/2021 Last Documented On 4 2:33PM ; [facility] Surgery 12/05/2021 Last Documented On 4 2:33PM ; [facility] Family History Includes: Family History addressed during this encounter Description Last Updated Family history of bleeding problems 11/22 Last Documented On 4 2:33PM ; [facility] Family history of kidney disease 022 Last Documented On 4 2:33PM ; [facility] Family history of heart disease 12/06/19 22 Last Documented On 4 2:33PM ; [facility] Review of Systems Includes: Review of [...] Active Last Documented On 4 3:31PM ; [facility] Codeine and Related Allergy 12/05/2021 Active Last Documented On 4 3:31PM ; [facility] Encounters Encounter Provider Location Date Check-In Time Check-Out Time Diagnosis RX ISSUE/REFILL PAKO HARRIS, JESE 11/17/2023 2:34PM 11:59PM Insurance Includes: Active Insurance Policies Plan Name Member ID Group # Subscriber Relationship Effect mattie Dates 1 - MEDICARE PART A CLAIMS/NGS [id number] MONTEZ Olivas 2 - [place] MEDICARE SECOND [id number] MONTEZ Olivas Clinical Notes Includes: Clinical Notes from this encounter * Progress note Date Encounter Last Documented by 11/17/2023 RX ISSUE/REFILL Last documented on 11/17/2023; 2:55 PM, PAKO HARRIS, FAYE-KARI; [facility] Active Problems & Conditions - Diabetes Mellitus - Risk: Dvt/pulmonary Embolism Chief Complaint Phone Call - Chief Concern: Reason for call:RX REFILL Patient is requesting a refill on NUCYNTA ER 150 ~How is medication taken? BID ~How many are left?5 Risk Assessment Score: MOD ~[place]PMP:10/20/23 Last Office Visit: 10/05/23 ~ pt phone # for Return call: ~Last Drug Screen:10/05/23 ~Date/Initials: 11/17/23 CB. Current Medication - Atorvastatin Calcium 80 [...] Health Reminders - Assess Tobacco Use satisfied 11/17/2023.
--- OUTSIDE RECORDS SUMMARY | 2024-12-19 11:39 | XMS_ITS | Clinical Summary ---
Author Organization [facility] Address [address] [place] [address] Phone Care Team Providers Care Field Technical Support Consultant Name Role Phone TOMER LÓPEZ APN Bruno Primary Care Provider [phone] Reason for Visit and Chief Complaint RX ISSUE/REFILL Problems Includes: Problems addressed during this encounter and other active Problems All Visits Onset Date Resolved Date Provider Condition S tatus Diabetes Mellitus Unknown RASHAWN GREWALBC Active Last Documented On 2 10:27AM ; [facility] Risk: Dvt/pulmonary Embolism Unknown JESE GREWAL Active Last Documented On 2 10:27AM ; [facility] Plan of Treatment No Plan of Treatment Recorded Assessments Includes: Assessments from this encounter No Assessments Recorded Medical Equipment - Implanted Devices Includes: Current Devices No Medical Equipment Recorded Medications Includes: Medications discussed during this encounter and other current Medications New / Renewed during this visit JESE GREWAL on 01/25/2024 Nucynta ER 150 MG Oral Tablet Extended Release 12 Hour Provider: JESE ALFORD 30 day supply: 60 tablet, 0 refills Diagnosis: One tablet twice a day Pharmacy: [id number], [address] - Last Documented On 4 2:54PM By PAKO SAWANT ; [facility] Current Medications (continue as prescribed) Alpha-Lipoic Acid 600 MG Oral Capsule 2024 [facility] Diagnosis: Polyneuropathy, unspecified 1 capsule daily Last Documented On 4 2:30PM By PAKO SAWANT ; [facility] Baclofen 10 MG Oral Tablet 2024 Provider: PAKO DONIS [facility] Diagnosis: Dorsalgia, unspe cified TAKE 1 TABLET BY MOUTH TWICE A DAY Last Documented On 4 2:30PM By PAKO WINSLOWKARI ; [facility] Pregabalin 200 MG Oral Capsule 2024 Provider: PAKO HARRIS [facility] Diagnosis: Polyneuropathy, unspecified TAKE 1 CAPSULE BY MOUTH TWICE A DAY Last Documented On 4 2:30PM By PAKO WINSLOWKARI ; [facility] Ozempic (0.25 or 0.5 MG/DOSE ) 2 MG/3ML Subcutaneous Solution Pen-injector 01/04/2024 Provider: JOE EWING DO Diagnosis: Last Documented On 4 2:26PM By PAKO MCKINNEYKARI ; [facility] QUEtiapine Fumarate 50 MG Oral Tablet 08/04/2023 Pro vider: Diagnosis: Last Documented On 3 1:22PM By PAKO MCKINNEYKARI ; [facility] Gabapentin 100 MG Oral Capsule 07/20/2023 Provider: Diagnosis: Last Documented On 3 1:22PM By PAKO SAWANT ; [facility] LORazepam 0.5 MG Oral Tablet 07/20/2023 Provider: Diagnosis: Last Documented On 3 1:22PM By PAKO MCKINNEYKARI ; [facility] Prazosin HCl 2 MG Oral Capsule 06/16/2023 Provider: Diagnosis: Last Documented On 3 1:22PM By PAKO MCKINNEYKARI ; [facility] traZODone HCl 50 MG Oral Tablet 06/15/2023 Provider: Diagnosis: Last Documented On 3 1:22PM By PAKO SAWANT ; [facility] Narcan 4 MG/0.1ML Nasal Liquid 05/07/2023 Provider: JESE GREWAL Diagnosis: retirement (curre nt) use of opiate analgesic 1 spray intranasally for yris pected overdose Last Documented On 3 1:22PM By PAKO SAWANT ; [facility] Sertraline HCl 100 MG Oral Tablet 05/04/2023 Provide r: Diagnosis: Last Documented On 3 10:58AM By PAKO SAWANT ; [facility] Jardiance 10 MG Oral Tablet 11/28/2021 Provider: Diagnosis: Last Documented On 2 10:54AM By PAKO SAWANT ; [facility] Eliquis 5 MG Oral Tablet 11/28/2021 Provider: Diagnosis: Last Documented On 2 10:54AM By PAKO SAWANT ; [facility] Lantus SoloStar 100 UNIT/ML Subcutaneous Solutio n Pen-injector 11/11/2021 Provider: Diagnosis: 40 units once a day. Last Documented On 2 10:54AM By PAKO SAWANT ; [facility] Atorvastatin Calcium 80 MG Oral Tablet 10/02/2021 Pr ovider: Diagnosis: Last Documented On 2 10:54AM By PAKO SAWANT ; [facility] Past Medications on file Pregabalin 75 MG Oral Capsule 12/05/2021 - 12/11/2021 Provider: JESE GREWAL Diagnosis: Polyneuropathy, unspecified take 1 capsule at night for 3 days then twice daily for 3 days Last Documented On 2 10:54AM By PAKO SAWANT ; [facility] Medications Administered Includes: Administered Medications from this encounter No Administered Medications Recorded Results Includes: Results discussed during this encounter No Results Recorded For Specified Dates History of Present Illness Includes: History of Present Illness from this encounter No History of Present Illness Recorded Social History Description Last Updated Single 12/05/2021 Last Documented On 4 1:11PM ; [facility] Current smoker 12/05/2021 Last Documented On 4 1:11PM ; [facility] Smoking Status Unknown Procedures and Surgical History Surgical History Last Updated Prior surgery L5-S1 11/2010 ~Spinal Cord Stimulator 11/201812/05/2021 Last Documented On 4 1:11PM ; [facility] Medical History Includes: Medical History addressed during this encounter Description Last Updated Has a fear of falling. 2024 Last Documented On 4 1:11PM ; [facility] Has had a fall in the last 12 months. Last Documented On 4 1:11PM ; [facility] Kidney Failure, neuropathy, osteoarthrit is, 12/05/2021 Last Documented On 4 1:11PM ; [facility] Diabetes 12/05/2021 Last Documented On 4 1:11PM ; [facility] History of arthritis 12/05/2021 Last Documented On 4 1:11PM ; [facility] Surgery 12/05/2021 Last Documented On 4 1:11PM ; [facility] Family History Includes: Family History addressed during this encounter Description Last Updated Family history of bleeding problems 11/22 Last Documented On 4 1:11PM ; [facility] Family history of kidney disease 022 Last Documented On 4 1:11PM ; [facility] Family history of heart disease 12/06/19 22 Last Documented On 4 1:11PM ; [facility] Review of Systems Includes: Review [...] Active Last Documented On 4 3:31PM ; [facility] Codeine and Related Allergy 12/05/2021 Active Last Documented On 4 3:31PM ; [facility] Encounters Encounter Provider Location Date Check-In Time Check-Out Time Diagnosis RX ISSUE/REFILL PAKO Trevino ALEIDA CHOPPED STRAND OPERATOR-FPA, BAR POINTER-BC 01/25/2024 1:11PM 11:59PM Insurance Includes: Active Insurance Policies Plan Name Member ID Group # Subscriber Relationship Effect mattie Dates 1 - MEDICARE PART A CLAIMS/NGS [id number] MONTEZ MAUGIRE Self 2 - MEDICAID [place] MED[place]ARE SECOND [id number] MONTEZ MAGUIRE Self Clinical Notes Includes: Clinical Notes from this encounter * Progress note Date Encounter Last Documented by 01/25/2024 RX ISSUE/REFILL Last documented on 01/25/2024; 2:42 PM, PAKO Trevino ALEIDA CHOPPED STRAND OPERATOR-FPA, BAR POINTER-BC; [facility] Active Problems & Conditions [...]
--- OUTSIDE RECORDS SUMMARY | 2024-12-19 11:39 | XMS_ITS | Encounter Summary ---
Author Organization [facility] Address [address] [place] [address] Care Team Providers Care Forming Department Supervisor Name Role Phone Bernie Madsen MD Primary Care Provider [phone] Nae Lewis MD Primary Care Provider Unavailab Bernie Cope MD Primary Care Provider [phone] Nae Lewis MD Primary Care Provider Unavailab Nae Osullivan MD Primary Care Provider Unavailab Nae Osullivan MD Unavailable Unavailable Ely Gonsales FIELD MERCHANDISER-RE RECORDING MIXER Unavailable [phone] Luis Bowling MD Unavailable Unavailable Pam Kelly MD Unavailable [phone] Oleg Martinez MD Unavailable [phone] Carmelo Bone MD Unavailable Jomar Salgado MD Unavailable [phone] Luis Shanks MD Unavailable [phone] Pcp, [facility]- Primary Care Provider Unavailable Bernie Madsen MD Unavailable [phone] Reason for Visit * Reason Onset Date Comments MEDICATION REFILL 07/09/2018 Encounter Details Date Type Department Care Team (Late st Contact Info) Description 07/09/2018 Refill Internal Medicine Clinic at [facility] [address] [place] [address] Brittaney Méndez MD [address] [place] [address] MEDICATION REFILL Social History Tobacco Use Types Packs/Day Years Used Date Smoking Tobacco: Some Days Cigarettes 0.5 30 Smokeless Tobacco: Never Comments:e-cig Alcohol Use Standard Drinks/Week Comments No 0 (1 standard drink = 0.6 oz pur e alcohol) Comments No Sex and Gender Information Value Date Recorded Sex Assigned at Not on file Legal Sex Female 9:44 AM HOME 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 Gender Identity Not on file Sexual Orientation [...] of Assessment Author No 03/03/2018 6:59 AM [facility] Annie Moreira RN * Does person have [...] on filedocumented in this encounter Care Teams Forming Department Supervisor Relationship Specialty Start Date End Date Bernie Madsen MD PCP - General Internal Medicine 10/16/15 01/25/19 Nae Lewis MD PCP - General Internal Medicine 01/26/19 01/26/19 Bernie Madsen MD PCP - General 01/27/19 01/27/19 Nae Lewis MD PCP - General Internal Medicine 01/28/19 05/15/20 Nae Lewis MD PCP - General Internal Medicine 05/16/20 06/22/24 Ely Gonsales, FIELD MERCHANDISER-RE RECORDING MIXER [address] [place] [address] PCP - Attributed-[facility] STL 02/22/20 02/09/23 Pcp, [facility]- PCP - General 06/23/24 Bernie Madsen MD [address] [address] PCP - Attributed-Exclusive Choice 02/06/17 01/25/19 Nae Lewis MD Internal Medicine 05/16/20 Luis Bowling MD [address] [place] [address] Ophthalmology 03/19/17 Pam Kelly MD [address] [place] [address] Oncology 03/19/17 Oleg Martinez MD [address] [facility] [address] [place] [address] Nephrology 03/19/17 Carmelo Bone MD [address] [facility] [address] [place] [address] Anesthesiology 05/04/18 Jomar Salgado MD [address] [facility] [place] [address] [place] [address] Cardiovascular Disease 03/24/19 Luis Shanks MD [address] [facility] [address] [place] [address] Anesthesiology 10/26/20 documented as of this encounter
--- OUTSIDE RECORDS SUMMARY | 2024-12-19 11:39 | XMS_ITS | Clinical Summary ---
Author Organization [facility] Address [address] [place] [address] Phone Care Team Providers Care Nut Steamer Name Role Phone Estuardo Rosenberg MD Primary Care Provider [phone] Social History Tobacco Use Types Packs/Day Years Used Date Smoking Tobacco: Never Assessed Comments Unknown Sex and Gender Information Value Date Recorded Sex Assigned at Not on file Legal Sex Female 9:22 PM CDT Gender Identity Not on file Sexual Orientation Not on file Plan of Treatment Health Maintenance Due Date Last Done Comments Hepatitis C Virus (HCV) Screening 1970 Mammogram 1970 Pap Smear 1991 Cervical Cancer Screening (CCS) 01/13/2000 HPV/Cotest 01/13/2000 Colonoscopy 2015 Colorectal Cancer Screening 2015 Cologuard 01/13/2020 Immunochemical Fecal Occult Blood 01/13/2020 Pneumococcal Immunization (50+ years) (2 of 2 - PCV) 01/13/2020 01/24/2016 Zoster Immunization (2 of 2) 08/12/2021 06/17/2021 Influenza Immunization (#1) 04/24/202405/25, 05/25/2020, 05/24/2019, Additional history exists SARS-COV-2 Immunization ( season) 2024 06/17/2021, 09/11/2020, 08/21/2020 Respiratory Syncytial Virus (RSV) Immunization (Adult) (1 - 1-dose 75+ series) 2045 Pneumococcal Immunization Combined Discontinued 01/24/2016 DTaP/Tdap/Td Immunization Discontinued 08/19/2016 TdaP Immunization Completed 08/19/2016 Hepatitis B Immunization Completed 017, 08/19/2016, 05/15/2016 Meningococcal Immunization (ACWY) Aged Out No longer eligible based on patient's age to complete this topic Rotavirus Immunization Aged Out No lo nger eligible based on patient's age to complete this topic Insurance MEDICAID [employer] Care Teams Nut Steamer Relationship Specialty Start Date End Date Estuardo Rosenberg MD [address] [place] [address] PCP - General Family Medicine 12/06/21
--- OUTSIDE RECORDS SUMMARY | 2024-12-19 11:39 | XMS_ITS | Encounter Summary ---
Author Organization [facility] Address [address] [place] [address] Phone Care Team Providers Care Cutlery Grinder Name Role Phone Estuardo Rosenberg MD Primary Care Provider [phone] Reason for Visit * Reason Comments Medication Refill Encounter Details Date Type Department Care Team (Late st Contact Info) Description 08/10/2023 Refill [facility] Central Scheduling [address] [place] [address] Yamileth Sainz, DIRECTOR OF DESIGN, ELIGIBILITY WORKER [address] [place] [address] Medication Refill Social History Tobacco Use Types Packs/Day Years Used Date Smoking Tobacco: Never Assessed Comments Unknown Sex and Gender Information Value Date Recorded Sex Assigned at Not on file Legal Sex Female 9:22 PM CDT Gender Identity Not on file Sexual Orientation Not on file documented as of this encounter Plan of Treatment Not on file documented as of this encounter Visit Diagnoses Diagnosis Dorsalgia, unspecified documented in this encounter Care Teams Cutlery Grinder Relationship Specialty Start Date End Date Estuardo Rosenberg MD [address] [place] [address] PCP - General Family Medicine 12/06/21 documented as of this encounter
--- OUTSIDE RECORDS SUMMARY | 2024-12-19 11:39 | XMS_ITS | Encounter Summary ---
Author Organization [facility] Address [address] [place] [address] Care Team Providers Care Numerical Control Router Operator Name Role Phone Bernie Madsen MD Primary Care Provider [phone] Nae Lewis MD Primary Care Provider Unavailab Bernie Cope MD Primary Care Provider [phone] Nae Lewis MD Primary Care Provider Unavailab Nae Osullivan MD Primary Care Provider Unavailab Nae Osullivan MD Unavailable Unavailable Ely Gonsales SENIOR SSIS DEVELOPER-CLINICAL SPECIALIST MEDICAL DEVICE Unavailable [phone] Luis Bowling MD Unavailable Unavailable Pam Kelly MD Unavailable [phone] Oleg Martinez MD Unavailable [phone] Carmelo Bone MD Unavailable Jomar Salgado MD Unavailable [phone] Luis Shanks MD Unavailable [phone] Pcp, [facility]- Primary Care Provider Unavailable Bernie Madsen MD Unavailable [phone] Reason for Visit * Reason Onset Date Comments MEDICATION REFILL 07/07/2018 Encounter Details Date Type Department Care Team (Late st Contact Info) Description 07/07/2018 Refill Internal Medicine Clinic at [facility] [address] [place] [address] Brittaney Méndez MD [address] [place] [address] MEDICATION REFILL Social History Tobacco Use Types Packs/Day Years Used Date Smoking Tobacco: Some Days Cigarettes 0.5 30 Smokeless Tobacco: Never Comments:e-cig Alcohol Use Standard Drinks/Week Comments No 0 (1 standard drink = 0.6 oz pur e alcohol) Comments No Sex and Gender Information Value Date Recorded Sex Assigned at Not on file Legal Sex Female 9:44 AM COPY OPERATOR Gender Identity Not on file Sexual [...] of Assessment Author No 03/03/2018 6:59 AM [facility] Annie Moreira RN * Does person have [...] on filedocumented in this encounter Care Teams Numerical Control Router Operator Relationship Specialty Start Date End Date Bernie Madsen MD PCP - General Internal Medicine 10/16/15 01/25/19 Nae Lewis MD PCP - General Internal Medicine 01/26/19 01/26/19 Bernie Madsen MD PCP - General 01/27/19 01/27/19 Nae Lewis MD PCP - General Internal Medicine 01/28/19 05/15/20 Nae Lewis MD PCP - General Internal Medicine 05/16/20 06/22/24 Ely Gonsales, SENIOR SSIS DEVELOPER-CLINICAL SPECIALIST MEDICAL DEVICE [address] [place] [address] PCP - Attributed-[facility] STL 02/22/20 02/09/23 Pcp, [facility]- PCP - General 06/23/24 Bernie Madsen MD [address] [address] PCP - Attributed-Exclusive Choice 02/06/17 01/25/19 Nae Lewis MD Internal Medicine 05/16/20 Luis Bowling MD [address] [place] [address] Ophthalmology 03/19/17 Pam Kelly MD [address] [place] [address] Oncology 03/19/17 Oleg Martinez MD [address] [facility] [address] [place] [address] Nephrology 03/19/17 Carmelo Bone MD 10[address] [facility] [address] [place] [address] Anesthesiology 05/04/18 Jomar Salgado MD [address] [facility] [place] [address] [place] [address] Cardiovascular Disease 03/24/19 Luis Shanks MD [address] [facility] [address] [place] [address] Anesthesiology 10/26/20 documented as of this encounter
== END 2024-12-19 10:14 | disposition home or self-care (01) ==
LOC: CHSLAB 10:14
PROVIDERS: PCP Nurse Practitioner Family; Visit Provider Nurse Practitioner Family
DX: Z11.1 Encounter for screening for respiratory tuberculosis (principal); E11.9 Type 2 diabetes mellitus without complications
CPT/HCPCS: 36415; 83036; 86580

== ENCOUNTER 2025-01-03 16:49 | Outpatient (NON) | payer MEDICARE, SELFPAY ==
--- OUTSIDE RECORDS SUMMARY | 2025-01-03 16:53 | XMS_ITS | Encounter Summary ---
Author Organization [facility] Address [address] [place] [address] Care Team Providers Care Rolled Gold Plater Name Role Phone Bernie Madsen MD Primary Care Provider [phone] Nae Lewis MD Primary Care Provider Unavailab Bernie Cope MD Primary Care Provider [phone] Nae Lewis MD Primary Care Provider Unavailab Nae Osullivan MD Primary Care Provider Unavailab Nae Osullivan MD Unavailable Unavailable Ely Gonsales COMMUNICATIONS ELECTRICIAN SUPERVISOR-CRM TECHNICAL LEAD Unavailable [phone] Luis Bowling MD Unavailable Unavailable Pam Kelly MD Unavailable [phone] Oleg Martinez MD Unavailable [phone] Carmelo Bone MD Unavailable Jomar Salgado MD Unavailable [phone] Luis Shanks MD Unavailable [phone] Pcp, [facility]- Primary Care Provider Unavailable Bernei Madsen MD Unavailable [phone] Reason for Visit * Reason Onset Date Comments MEDICATION REFILL 08/09/2018 Encounter Details Date Type Department Care Team (Late st Contact Info) Description 08/09/2018 Refill Internal Medicine Clinic at [facility] [address] [place] [address] Brittaney Méndez MD [address] [place] [address] MEDICATION REFILL Social History Tobacco Use Types Packs/Day Years Used Date Smoking Tobacco: Some Days Cigarettes 0.5 30 Smokeless Tobacco: Never Comments:e-cig Alcohol Use Standard Drinks/Week Comments No 0 (1 standard drink = 0.6 oz pur e alcohol) Comments No Sex and Gender Information Value Date Recorded Sex Assigned at Not on file 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 Gender Identity Not on file Sexual Orientation [...] of Assessment Author No 03/03/2018 6:59 AM [facility] Annie Moreira RN * Does person have [...] on filedocumented in this encounter Care Teams Rolled Gold Plater Relationship Specialty Start Date End Date Bernie Madsen MD PCP - General Internal Medicine 10/16/15 01/25/19 Nae Lewis MD PCP - General Internal Medicine 01/26/19 01/26/19 Bernie Madsen MD PCP - General 01/27/19 01/27/19 Nae Lewis MD PCP - General Internal Medicine 01/28/19 05/15/20 Nae Lewis MD PCP - General Internal Medicine 05/16/20 06/22/24 Ely Gonsales, COMMUNICATIONS ELECTRICIAN SUPERVISOR-CRM TECHNICAL LEAD [address] [place] [address] PCP - Attributed-[facility] EHP STL 02/22/20 02/09/23 Pcp, [facility]- PCP - General 06/23/24 Bernie Madsen MD [address] [address] PCP - Attributed-Exclusive Choice 02/06/17 01/25/19 Nae Lewis MD Internal Medicine 05/16/20 Luis Bowling MD [address] [place] [address] Ophthalmology 03/19/17 Pam Kelly MD [address] [place] [address] Oncology 03/19/17 Oleg Martinez MD [address] [facility] [address] [place] [address] Nephrology 03/19/17 Carmelo Bone MD [address] [facility] [address] [place] [address] Anesthesiology 05/04/18 Jomar Salgado MD [address] [facility] [place] [address] [place] [address] Cardiovascular Disease 03/24/19 Luis Shanks MD 1055 [facility] [address] [place] [address] Anesthesiology 10/26/20 documented as of this encounter
--- OUTSIDE RECORDS SUMMARY | 2025-01-03 16:53 | XMS_ITS | Encounter Summary ---
Author Organization [facility] Address [address] [place] [address] Care Team Providers Care Communications Equipment Installer Name Role Phone Bernie Madsen MD Primary Care Provider [phone] Nae Lewis MD Primary Care Provider Unavailab Bernie Cope MD Primary Care Provider [phone] Nae Lewis MD Primary Care Provider Unavailab Nae Osullivan MD Primary Care Provider Unavailab Nae Osullivan MD Unavailable Unavailable Ely Gonsales AUTOCUTTER-LEAD CARGOMAN Unavailable [phone] Luis Bowling MD Unavailable Unavailable aPm Kelly MD Unavailable [phone] Oleg Martinez MD Unavailable [phone] Carmelo Bone MD Unavailable Jomar Salgado MD Unavailable [phone] Luis Shanks MD Unavailable [phone] Pcp, [facility]- Primary Care Provider Unavailable Bernie Madsen MD Unavailable [phone] Reason for Visit * Reason Onset Date Comments MEDICATION REFILL 07/09/2018 Encounter Details Date Type Department Care Team (Late st Contact Info) Description 07/09/2018 Refill Internal Medicine Clinic at [facility] [address] [place] [address] Brittaney Méndez MD [address] [place] [address] MEDICATION REFILL Social History Tobacco Use Types Packs/Day Years Used Date Smoking Tobacco: Some Days Cigarettes 0.5 30 Smokeless Tobacco: Never Comments:e-cig Alcohol Use Standard Drinks/Week Comments No 0 (1 standard drink = 0.6 oz pur e alcohol) Comments No Sex and Gender Information Value Date Recorded Sex Assigned at Not on file 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 Gender Identity Not on file Sexual Orientation [...] of Assessment Author No 03/03/2018 6:59 AM [facility] Annie Moreira RN * Does person have [...] on filedocumented in this encounter Care Teams Communications Equipment Installer Relationship Specialty Start Date End Date Bernie Madsen MD PCP - General Internal Medicine 10/16/15 01/25/19 Nae Lewis MD PCP - General Internal Medicine 01/26/19 01/26/19 Bernie Madsen MD PCP - General 01/27/19 01/27/19 Nae Lewis MD PCP - General Internal Medicine 01/28/19 05/15/20 Nae Lewis MD PCP - General Internal Medicine 05/16/20 06/22/24 Ely Gonsales, AUTOCUTTER-LEAD CARGOMAN [address] [place] [address] PCP - Attributed-[facility] EHP STL 02/22/20 02/09/23 Pcp, [facility]- PCP - General 06/23/24 Bernie Madsen MD [address] [address] PCP - Attributed-Exclusive Choice 02/06/17 01/25/19 Nae Lewis MD Internal Medicine 05/16/20 Luis Bowling MD [address] [place] [address] Ophthalmology 03/19/17 Pam Kelly MD [address] [place] [address] Oncology 03/19/17 Oleg Martinez MD [address] [facility] [address] [place] [address] Nephrology 03/19/17 Carmelo Bone MD [address] [facility] [address] [place] [address] Anesthesiology 05/04/18 Jomar Salgado MD [address] [facility] [place] [address] [place] [address] Cardiovascular Disease 03/24/19 Luis Shanks MD [address] [facility] [address] [place] [address] Anesthesiology 10/26/20 documented as of this encounter
--- OUTSIDE RECORDS SUMMARY | 2025-01-03 16:53 | XMS_ITS | Encounter Summary ---
Author Organization [facility] Address [address] [place] [address] Care Team Providers Care Well Tender Name Role Phone Bernie Madsen MD Primary Care Provider [phone] Nae Lewis MD Primary Care Provider Unavailab Bernie Cope MD Primary Care Provider [phone] Nae Lewis MD Primary Care Provider Unavailab Nae Osullivan MD Primary Care Provider Unavailab Nae Osullivan MD Unavailable Unavailable Ely Gonsales CIRCUIT RIDER-TRANSMISSION ENGINEER Unavailable [phone] Luis Bowling MD Unavailable Unavailable Pam Kelly MD Unavailable [phone] Oleg Martinez MD Unavailable [phone] Carmelo Bone MD Unavailable Jomar Salgado MD Unavailable [phone] Luis Shanks MD Unavailable [phone] Pcp, [facility]- Primary Care Provider Unavailable Bernie Madsen MD Unavailable [phone] Reason for Visit * Reason Onset Date Comments MEDICATION REFILL 07/07/2018 Encounter Details Date Type Department Care Team (Late st Contact Info) Description 07/07/2018 Refill Internal Medicine Clinic at [facility] [address] [place] [address] Brittaney Méndez MD [address] [place] [address] MEDICATION REFILL Social History Tobacco Use Types Packs/Day Years Used Date Smoking Tobacco: Some Days Cigarettes 0.5 30 Smokeless Tobacco: Never Comments:e-cig Alcohol Use Standard Drinks/Week Comments No 0 (1 standard drink = 0.6 oz pur e alcohol) Comments No Sex and Gender Information Value Date Recorded Sex Assigned at Not on file 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 Gender Identity Not on file Sexual Orientation [...] of Assessment Author No 03/03/2018 6:59 AM [facility] Annie Moreira RN * Does person have [...] on filedocumented in this encounter Care Teams Well Tender Relationship Specialty Start Date End Date Bernie Madsen MD PCP - General Internal Medicine 10/16/15 01/25/19 Nae Lewis MD PCP - General Internal Medicine 01/26/19 01/26/19 Bernie Madsen MD PCP - General 01/27/19 01/27/19 Nae Lewis MD PCP - General Internal Medicine 01/28/19 05/15/20 Nae Lewis MD PCP - General Internal Medicine 05/16/20 06/22/24 Ely Gonsales, CIRCUIT RIDER-TRANSMISSION ENGINEER [address] [place] [address] PCP - Attributed-[facility] STL 02/22/20 02/09/23 Pcp, [facility]- PCP - General 06/23/24 Bernie Madsen MD [address] [address] PCP - Attributed-Exclusive Choice 02/06/17 01/25/19 Nae Lewis MD Internal Medicine 05/16/20 Luis Bowling MD [address] [place] [address] Ophthalmology 03/19/17 Pam Kelly MD [address] [place] [address] Oncology 03/19/17 Oleg Martinez MD [address] [facility] [address] [place] [address] Nephrology 03/19/17 Carmelo Bone MD [address] [facility] [address] [place] [address] Anesthesiology 05/04/18 Jomar Salgado MD [address] [facility] [place] [address] [place] [address] Cardiovascular Disease 03/24/19 Luis Shanks MD 10[address] [facility] [address] [place] [address] Anesthesiology 10/26/20 documented as of this encounter
== END 2025-01-03 16:50 | disposition home or self-care (01) ==
LOC: CHSLAB 16:51
PROVIDERS: PCP Nurse Practitioner Family; Visit Provider Nurse Practitioner Family
DX: L03.90 Cellulitis, unspecified (principal)
CPT/HCPCS: 87070; 87075; 87147; 87186; 87205

== ENCOUNTER 2025-01-04 11:28 | Outpatient (CLI) | payer MEDICARE, SELFPAY ==
--- OUTSIDE RECORDS SUMMARY | 2025-01-04 11:31 | XMS_ITS | Encounter Summary ---
Author Organization [facility] Address [address] [place] [address] Care Team Providers Care Stringed Instrument Assembler Name Role Phone Bernie Madsen MD Primary Care Provider [phone] Nae Lewis MD Primary Care Provider Unavailab Bernie Cope MD Primary Care Provider [phone] Nae Lewis MD Primary Care Provider Unavailab Nae Osullivan MD Primary Care Provider Unavailab Nae Osullivan MD Unavailable Unavailable Ely Gonsales VERIFYING SPECIALIST-BATTALION CHIEF Unavailable [phone] Luis Bowling MD Unavailable Unavailable Pam Kelly MD Unavailable [phone] Oleg Martinez MD Unavailable [phone] Carmelo Bone MD Unavailable Jomar Salgado MD Unavailable [phone] Luis Shanks MD Unavailable [phone] Pcp, [facility]- Primary Care Provider Unavailable Bernie Madsen MD Unavailable [phone] Reason for Visit * Reason Onset Date Comments MEDICATION REFILL 07/07/2018 Encounter Details Date Type Department Care Team (Late st Contact Info) Description 07/07/2018 Refill Internal Medicine Clinic at [facility] [address] [place] [address] Brittaney Méndez MD [address] [place] [address] MEDICATION REFILL Social History Tobacco Use Types Packs/Day Years Used Date Smoking Tobacco: Some Days Cigarettes 0.5 30 Smokeless Tobacco: Never Comments:e-cig Alcohol Use Standard Drinks/Week Comments No 0 (1 standard drink = 0.6 oz pur e alcohol) Comments No Sex and Gender Information Value Date Recorded Sex Assigned at Not on file 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 Gender Identity Not on file Sexual Orientation [...] of Assessment Author No 03/03/2018 6:59 AM [facility] Annie Moreira RN * Does person have [...] on filedocumented in this encounter Care Teams Stringed Instrument Assembler Relationship Specialty Start Date End Date Bernie Madsen MD PCP - General Internal Medicine 10/16/15 01/25/19 Nae Lewis MD PCP - General Internal Medicine 01/26/19 01/26/19 Bernie Madsen MD PCP - General 01/27/19 01/27/19 Nae Lewis MD PCP - General Internal Medicine 01/28/19 05/15/20 Nae Lewis MD PCP - General Internal Medicine 05/16/20 06/22/24 Ely Gonsales, VERIFYING SPECIALIST-BATTALION CHIEF [address] [place] [address] PCP - Attributed-[facility] STL 02/22/20 02/09/23 Pcp, [facility]- PCP - General 06/23/24 Bernie Madsen MD [address] [address] PCP - Attributed-Exclusive Choice 02/06/17 01/25/19 Nae Lewis MD Internal Medicine 05/16/20 Luis Bowling MD [address] [place] [address] Ophthalmology 03/19/17 Pam Kelly MD [address] [place] [address] Oncology 03/19/17 Oleg Martinez MD [address] [facility] [address] [place] [address] Nephrology 03/19/17 Carmelo Bone MD 1031 [facility] [address] [place] [address] Anesthesiology 05/04/18 Jomar Salgado MD [address] [facility] [place] [address] [place] [address] Cardiovascular Disease 03/24/19 Luis Shanks MD 1055 [facility] [address] [place] [address] Anesthesiology 10/26/20 documented as of this encounter
--- OUTSIDE RECORDS SUMMARY | 2025-01-04 11:31 | XMS_ITS | Clinical Summary ---
Author Organization [facility] Address [address] [place] [address] Care Team Providers Care Helicopter Repairer Name Role Phone Nae Lewis MD Unavailable Unavailable Luis Bowling MD Unavailable Unavailable Pam Kelly MD Unavailable [phone] Oleg Martinez MD Unavailable [phone] Carmelo Bone MD Unavailable Jomar Salgado MD Unavailable [phone] Luis Shanks MD Unavailable [phone] Pcp, [facility]- Primary Care Provider Unavailable Source Comments [facility],non-owned Affiliates and Associated Physician Practices is amultiple site organization consisting of ambulatory clinics and hospital sitesin [place], [place], [place] and [place]. This disclosure is being madepursuant to the Care Everywhere program and may not contain all information available regarding this patient. Last updated 18.[facility] Allergies Active Allergy Reactions Criticality Noted [...] Active vitamin D, ergocalciferol, (DRISDOL) 1.25 MG (86641 UT) capsule Take 1 (one) capsule by mouth every 7 days 12 capsule 1 07/15/20 21 Active atorvastatin (LIPITOR) 80 MG tablet Take 1 (one) tablet by mouth once daily 90 tablet 1 07/15/20 21 Active insulin glargine (Lantus/Semglee) 100 units/mL penIndications:Typ e 2 diabetes mellitus with diabetic polyneuropathy, without long-term current use of insulin ([facility]) Inject 35 (thirty five) Units subcutaneously at bedtime 15 mL 2 08/29/19 22 Active apixaban (ELIQUIS) 5 MG tablet Take 1 (one) tablet by mouth 2 times daily 60 tablet 5 08/29/19 22 Active JANUVIA 100 MG tabletIndications: Type 2 diabetes mellitus with diabetic polyneuropathy, without long-term current use of insulin ([facility]) TAKE 1 TABLET BY MOUTH EVERY DAY [...] benign disease 03/15 Premature surgical menopause 03/15/2019 FPC (current) use of anticoagulants 2018 History of DVT (deep vein thrombosis) 07/26/2018 Vitamin D deficiency 12/05/2016 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 disorder associated with diabetes galindo litus 01/10/2016 Overview (05/02/2021): Marlene Matthew, ACQUISITION MARKETING COORDINATOR-ASSISTANT CHIEF NURSING OFFICER Ov 10/26/20 HLD (hyperlipidemia) 01/10/2016 Neuropathy 01/10/2016 Degenerative joint disease involving multiple lyndsey ints 01/10/2016 Chronic low back pain 01/10/2016 Lumbar radiculopathy 01/10/2016 Type 2 diabetes mellitus with diabetic polyneuro lexus 10/16/2015 Overview (05/02/2021): Marlene Matthew, ACQUISITION MARKETING COORDINATOR-ASSISTANT CHIEF NURSING OFFICER 10/26/20 ov Essential hypertension 10/16/2015 Spinal stenosis of lumbar region Resolved Problems Problem Noted Date Diagnosed Date Resolved Date Acute deep vein thrombosis ( DVT) of other vein of lower extremity, unspecified laterality 07/28/2019 12/20/2019 History of chlamydia 03/15/2019 020 termite helper (current) use of anticoagulants 07/26/2018 10/06/2018 Pre-op testing 05/12/2018 10/06/2018 termite helper current use of ant icoagulant therapy 08/03/2017 10/06/2018 Overview (11/21/2017): IMO update 11 22 2017 FPC current use of anticoagulant 06/20/2016 10/06/2018 Deep vein thrombosis (DVT) o f lower extremity, unspecified chronicity, unspecified laterality, unspecified vein 06/20/2016 10/06/2018 Hypokalemia 06/18/2016 06/26/2016 Acute renal failure 06/16/2016 06/26/20 16 Hyperkalemia 06/16/2016 06/16/2016 Metabolic acidosis 06/16/2016 6 Benign essential hypertension 01/10/2016 05/15/2016 Pain 01/10/2016 05/15/2016 Hyperlipidemia 10/16/2015 05/15/2016 Immunizations Immunization Administration Dates Next Due Telekenex primary monoval ent 12+ yr 0.3mL Purple [...] on file Legal Sex Female 9:44 AM RETAIL PRESENTATION SPECIALIST Gender Identity Not on file Sexual Orientation Not on file 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 Not on file Last Filed Vital Signs Vital Sign Reading Time Taken Comments Blood Pressure 140/79 07/12/2021 9:36 AM RETAIL PRESENTATION SPECIALIST Pulse 97 07/12/2021 9:36 AM RETAIL PRESENTATION SPECIALIST Temperature 36.6 C (97.9 F) 05/02/2021 2:16 PM CDT Respiratory Rate 18 11/14/2020 11:35 AM CDT Oxygen Saturation 95% 07/12/2021 9:36 AM RETAIL PRESENTATION SPECIALIST Inhaled Oxygen Concentration - - Weight 74.8 kg (165 lb) 07/12/2021 9:36 AM RETAIL PRESENTATION SPECIALIST Height 157.5 cm (5' 2 ) 07/12/2021 9:36 AM RETAIL PRESENTATION SPECIALIST Body Mass Index 30.18 07/12/2021 9:36 AM RETAIL PRESENTATION SPECIALIST Plan of Treatment Health Maintenance Due Date [...] care at the right time. General Yes mIan Jean RN Note: Beatrice will call the doctor if she has an increased temperature (greater than 101), unrelieved pain, symptoms that are not relieved or worsening, and side effects of medications. Progress toward goal attainment: 0% : Ongoing / No progress Barriers to goal attainment: None identified Medical Devices Implanted Type Area Surtass Analyst Device Identifier Shelf Expiration Date Model / Serial / Lot Proclaim Elite 5 W/Ptnt Cntrl Implanted:Qty: 1 on 10/27/2018 by Carmelo Bone MD at [facility] Back [employer] Spine 06/15/2020 3660 / / Description:PROCLAIM ELITE I MPLANTABLE PULSE GENERATOR Kit Nrstm 60cm Octrode Perc 8 [address] - [id number] Implanted:Qty: 1 on 10/27/2018 by Carmelo Bone MD at [facility] Back [employer] 05/09/2020 [id number] / [id number] / [place] Naik-Lck Implanted:Qty: 2 on 10/27/2018 by Carmelo Bone MD at [facility] Back 09/07/2020 1192 / / [id number] Description:NAIK LOCK Kit Nrstm 60cm Octrode Perc 8 [address] Ld - [id number] Implanted:Qty: 1 on 10/27/2018 by Carmelo Bone MD at [facility] Back [employer] Cardiac Rhythm Management 05/09/2020 [id number] / [id number] / Procedures Procedure Name Priority Date/Time Associated Diagnosis Comments COMPREHENSIVE METABOLIC PANEL Routine 07/12/2021 9:23 AM RETAIL PRESENTATION SPECIALIST Essential hypertension Pure hypercholesterolemia HEMOGLOBIN A1C - POINT OF CARE (AMB) Routine 06/17/2021 11:41 AM CDT Type 2 diabetes mellitus with diabetic polyneuropathy, without long-term current use of insulin DIABETES EYE EXAM Routine 02/26/2021 MAMMO BILAT SCREENING Routine 10/26/2020 10:46 AM RETAIL PRESENTATION SPECIALIST Encounter for screening mammogram for breast cancer MICROALB/CREAT URINE - POINT OF CARE (AMB) Routine 08/21/2020 11:18 AM RETAIL PRESENTATION SPECIALIST Type 2 diabetes mellitus with diabetic polyneuropathy, without long-term current use of insulin DIABETES FOOT EXAM Routine 01/25/2018 HEPATITIS C ANTIBODY Routine 06/16/2016 11:27 AM CDT HIV-1 HIV-2 ANTIBODY + HIV P24 AG PANEL STAT 06/16/2016 11:27 AM CDT from Last 3 Months or Most Recently Relevant to Health Maintenance Results * (ABNORMAL) COMPREHENSIVE METABOLIC PANEL (07/12/2021 9:23 AM RETAIL PRESENTATION SPECIALIST) [facility] Glucose 221(H) 70 - 105 mg/dL [...] BLOOD SPECIMEN / Unknown 07/12/2021 9:23 AM RETAIL PRESENTATION SPECIALIST 07/12/2021 Narrative Resulting Agency Comment Lab Testing performed at: [address] [phone] [place] Nae Lewis MD LAB - CHEMISTRY ORDERABLES Final Result [facility] ACCOUNT BILL [address] [place] [address] * HEMOGLOBIN A1C - POINT OF CARE (HgbA1C) (06/17/2021 11:41 AM CDT) [facility] Hemoglobin A1c POCT 7.2 % [facility] Expiration Date [id number] [facility] IM [facility] Lot # [id number] [facility] 4TH QC Verified Yes Yes [facility] Blood BLOOD SPECIMEN / Unknown 06/17/2021 11:41 AM CDT us Nae Lewis MD LAB - POINT OF CARE ORDERABLES F inal Result [facility] [address] [place], [facility] [address] [place] [address], [facility] [phone] * DIABETES EYE EXAM (02/26/2021) us Scanned Document HEALTH MAINTENANCE Final Result * MAMMO BILAT SCREENING (10/26/2020 10:46 AM RETAIL PRESENTATION SPECIALIST) Anatomical Region Laterality Modality Breast Bilateral Mammography 10/26/2020 2:20 PM RETAIL PRESENTATION SPECIALIST Impressions 10/26/2020 2:20 PM RETAIL PRESENTATION SPECIALIST No mammographic evidence of malignancy in either breast. ASSESSMENT: BIRADS Category 1: Negative mammogram. RECOMMENDATION: Bilateral screening mammogram in one year. Thank you for allowing us to participate in the care of your patient. *Reading Radiologist: Joselyn Thorpe on 10/26/2020 at 2:20 PM Narrative 10/26/2020 2:20 PM RETAIL PRESENTATION SPECIALIST EXAMINATION: Digital screening mammogram on 10/26/2020 10:26 [...] POINT OF CARE (AMB) (08/21/2020 11:18 AM RETAIL PRESENTATION SPECIALIST) QC Verified Yes Yes [facility] Microalbumin 30 mg/L [facility] Creatinine POCT 50 mg/dL [facility] Microalbumin/Crea tinine Ratio 30-300 mg/g [facility] Lot # [id number] [facility] Expiration Date 10.26.[address] [facility] Urine URINE / Unknown 08/21/2020 1 1:18 AM RETAIL PRESENTATION SPECIALIST Nae Lewis MD LAB - POINT OF CARE ORDERABLES F inal Result [facility] [address] [place] [facility] [address] [place] [address], [facility] [phone] * DIABETES FOOT EXAM (01/25/2018) Royce Reynaga DPM HEALTH MAINTENANCE Final Resu lt * HIV-1 HIV-2 ANTIBODY + HIV P24 AG PANEL (06/16/2016 11:27 AM CDT) [facility] HIV1/2 Ab + P24 Ag Non Reactive Non Reactive 06/16/2016 5:43 PM CDT [facility] Blood BLOOD SPECIMEN / Unknown Venipuncture / Unknown 06/16/2016 11:27 AM CDT 06/16/2016 11:43 AM CDT Narrative [facility] - 06/16/2016 5:43 PM CDT No Laboratory evidence of HIV infection. Sowmya Wagoner MD LAB - CHEMISTRY ORDERABLES Fi nal Result Performing Organization Address City/[facility]/ZIP Co de Phone Number [facility] [place] [address] * HEPATITIS C ANTIBODY (06/16/2016 11:27 AM CDT) Pathologist [facility] HCV Antibody Screen Non Reactive Non Reactive 06/16/2016 3:17 PM CDT [facility] HCV S/C Ratio 0.06 0.00 - 0.79 06/16/2016 3:17 PM CDT [facility] Comment: Ipddpn-tl-nakwbw ratio (S/CO) <0.80: Non Reactive Blood BLOOD SPECIMEN / Unknown Venipuncture / Unknown 06/16/2016 11:27 AM CDT 06/16/2016 2:02 PM CDT Narrative [facility] - 06/16/2016 3:17 PM CDT Non Reactive - Antibodies to Hepatitis C virus (HCV) were not detected, result does not exclude early acute HCV infection. us Sowmya Wagoner MD LAB - CHEMISTRY ORDERABLES nal Result [facility] [address] [place] [address] from Last 3 Months or Most Recently [...] 4:27 PM 06/20/2016 5:02 PM Care Teams Helicopter Repairer Relationship Specialty Start Date End Date [facility] - General 06/23/24 Nae Lewis MD Internal Medicine 05/16/20 Lius Bowling MD Ophthalmology 03/19/17 Pam Kelly MD [address] [facility] [address] [place] [address] Oncology 03/19/17 Oleg Martinez MD [address] [facility] [address] [place] [address] Nephrology 03/19/17 Carmelo Bone MD [address] [facility] [address] [place] [address] Anesthesiology 05/04/18 Jomar Salgado MD [address] [facility] [place] [address] [place] [address] Cardiovascular Disease 03/24/19 Luis Shanks MD [address] [place] [address] Anesthesiology 10/26/20
--- OUTSIDE RECORDS SUMMARY | 2025-01-04 11:31 | XMS_ITS | Encounter Summary ---
Author Organization [facility] Address [address] [place] [address] Care Team Providers Care Funeral Service Licensee Name Role Phone Bernie Madsen MD Primary Care Provider [phone] Nae Lewis MD Primary Care Provider Unavailab Bernie Cope MD Primary Care Provider [phone] Nae Lewis MD Primary Care Provider Unavailab Nae Osullivan MD Primary Care Provider Unavailab Nae Osullivan MD Unavailable Unavailable Ely Gonsales PROGRAM ARRANGER-MANAGER NEONATAL Unavailable [phone] Luis Bowling MD Unavailable Unavailable Pam Kelly MD Unavailable [phone] Oleg Martinez MD Unavailable [phone] Carmelo Bone MD Unavailable Jomar Salgado MD Unavailable [phone] Luis Shanks MD Unavailable [phone] Pcp, [facility]- Primary Care Provider Unavailable Bernie Madsen MD Unavailable [phone] Reason for Visit * Reason Onset Date Comments MEDICATION REFILL 08/09/2018 Encounter Details Date Type Department Care Team (Late st Contact Info) Description 08/09/2018 Refill Internal Medicine Clinic at 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 Gender Identity Not on file Sexual Orientation [...] of Assessment Author No 03/03/2018 6:59 AM [facility] Annie Moreira RN * Does person [...] on filedocumented in this encounter Care Teams Funeral Service Licensee Relationship Specialty Start Date End Date Bernie Madsen MD PCP - General Internal Medicine 10/16/15 01/25/19 Nae Lewis MD PCP - General Internal Medicine 01/26/19 01/26/19 Bernie Madsen MD PCP - General 01/27/19 01/27/19 Nae Lweis MD PCP - General Internal Medicine 01/28/19 05/15/20 Nae Lewis MD PCP - General Internal Medicine 05/16/20 06/22/24 Ely Gonsales, PROGRAM ARRANGER-MANAGER NEONATAL [address] [place] [address] PCP - Attributed-[facility] STL 02/22/20 02/09/23 Pcp, [facility]- PCP - General 06/23/24 Bernie Madsen MD [address] [address] PCP - Attributed-Exclusive Choice 02/06/17 01/25/19 Nae Lewis MD Internal Medicine 05/16/20 Luis Bowling MD [address] [place] [address] Ophthalmology 03/19/17 Pam Kelly MD [address] [place] [address] Oncology 03/19/17 Oleg Martinez MD [address] [facility] [address] [place] [address] Nephrology 03/19/17 Carmelo Bone MD [address] [facility] [address] [place] [address] Anesthesiology 05/04/18 Jomar Salgado MD [address] [facility] [place] [address] [place] [address] Cardiovascular Disease 03/24/19 Luis Shanks MD 10[address] [facility] [address] [place] [address] Anesthesiology 10/26/20 documented as of this encounter
--- OUTSIDE RECORDS SUMMARY | 2025-01-04 11:31 | XMS_ITS | Encounter Summary ---
Author Organization [facility] Address [address] [place] [address] Care Team Providers Care Lockstitch Zipper Setter Name Role Phone Bernie Madsen MD Primary Care Provider [phone] Nae Lewis MD Primary Care Provider Unavailab Bernie Cope MD Primary Care Provider [phone] Nae Lewis MD Primary Care Provider Unavailab Nae Osullivan MD Primary Care Provider Unavailab Nae Osullivan MD Unavailable Unavailable Ely Gonsales DOOR PATCHER-VISION IMPAIRED TEACHER Unavailable [phone] Luis Bowling MD Unavailable Unavailable Pam Kelly MD Unavailable [phone] Oleg Martinez MD Unavailable [phone] Carmelo Bone MD Unavailable Jomar Salgado MD Unavailable [phone] Luis Shanks MD Unavailable [phone] Pcp, [facility]- Primary Care Provider Unavailable Bernie Madsen MD Unavailable [phone] Reason for Visit * Reason Onset Date Comments MEDICATION REFILL 07/09/2018 Encounter Details Date Type Department Care Team (Late st Contact Info) Description 07/09/2018 Refill Internal Medicine Clinic at [facility] [address] [place] [address] Brittaney Méndez MD [address] [place] [address] MEDICATION REFILL Social History Tobacco Use Types Packs/Day Years Used Date Smoking Tobacco: Some Days Cigarettes 0.5 30 Smokeless Tobacco: Never Comments:e-cig Alcohol Use Standard Drinks/Week Comments No 0 (1 standard drink = 0.6 oz pur e alcohol) Comments No Sex and Gender Information Value Date Recorded Sex Assigned at Not on file Legal Sex Female 9:44 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 Gender Identity Not on file Sexual Orientation [...] of Assessment Author No 03/03/2018 6:59 AM [facility] Annie Moreira RN * Does person have [...] on filedocumented in this encounter Care Teams Lockstitch Zipper Setter Relationship Specialty Start Date End Date Bernie Madsen MD PCP - General Internal Medicine 10/16/15 01/25/19 Nae Lewis MD PCP - General Internal Medicine 01/26/19 01/26/19 Bernie Madsen MD PCP - General 01/27/19 01/27/19 Nae Lewis MD PCP - General Internal Medicine 01/28/19 05/15/20 Nae Lewis MD PCP - General Internal Medicine 05/16/20 06/22/24 Ely Gonsales, DOOR PATCHER-VISION IMPAIRED TEACHER [address] [place] [address] PCP - Attributed-[facility] 02/22/20 02/09/23 Pcp, [facility]- PCP - General 06/23/24 Bernie Madsen MD [address] [address] PCP - Attributed-Exclusive Choice 02/06/17 01/25/19 Nae Lewis MD Internal Medicine 05/16/20 Luis Bowling MD [address] [place] [address] Ophthalmology 03/19/17 Pam Kelly MD [address] [place] [address] Oncology 03/19/17 Oleg Martinez MD [address] [facility] [address] [place] [id number] Nephrology 03/19/17 Carmelo Bone MD [address] [facility] [address] [place] [address] Anesthesiology 05/04/18 Jomar Salgado MD [address] [facility] [place] [address] [place] [address] Cardiovascular Disease 03/24/19 Luis Shanks MD [address] [facility] [address] [place] [address] Anesthesiology 10/26/20 documented as of this encounter
--- OUTSIDE RECORDS SUMMARY | 2025-01-04 11:32 | XMS_ITS | Encounter Summary ---
Author Organization [facility] Address [address] [place] [address] Phone Care Team Providers Care Inventory Control Assistant Name Role Phone Estuardo Rosenberg MD Primary Care Provider [phone] Reason for Visit * Reason Comments Medication Refill Encounter Details Date Type Department Care Team (Late st Contact Info) Description 08/10/2023 Refill [facility] Central Scheduling [address] [place] [address] Yamileth Sainz, APPLICATION TRAINER, MIDDLE SCHOOL SCIENCE TEACHER [address] [place] [address] Medication Refill Social History Tobacco Use Types [...] unspecified documented in this encounter Care Teams Inventory Control Assistant Relationship Specialty Start Date End Date Estuardo Rosenberg MD [address] [place] [address] PCP - General Family Medicine 12/06/21 documented as of this encounter
--- OUTSIDE RECORDS SUMMARY | 2025-01-04 11:32 | XMS_ITS | Clinical Summary ---
Author Organization [facility] Address [address] [place] [address] Phone Care Team Providers Care Prestidigitator Name Role Phone Estuardo Rosenberg MD Primary Care Provider [phone] Social History Tobacco Use Types Packs/Day Years [...] Insurance MEDICAID [employer] Care Teams Prestidigitator Relationship Specialty Start Date End Date Estuardo Rosenberg MD [address] [place] [address] PCP - General Family Medicine 12/06/21
[2025-01-04 11:47] LABS: Basophils Absolute Auto 0.12 K/mm3 (0.00-0.10); Basophils Percent Auto 1.4 % (0.0-1.0); Eosinophils Absolute Auto 0.44 K/mm3 (0.02-0.50); Eosinophils Percent Auto 5.1 % (1.0-6.0); Hematocrit 49.5 % (35.0-49.0); Hemoglobin 16.1 g/dL (12.0-15.0); Immature Granulocyte Absolute 0.02 K/mm3 (0.00-0.00); Immature Granulocyte Percent A 0.2 % (0.0-0.0); Lymphocytes Absolute Auto 3.28 K/mm3 (1.10-4.50); Lymphocytes Percent Auto 38.2 % (18.0-42.0); Mean Corpuscular HGB Conc 32.5 g/dL (32-36); Mean Corpuscular Hemoglobin 28.7 pg (27.0-31.0); Mean Corpuscular Volume 88.2 fL (78.0-102.0); Mean Platelet Volume 11.2 fl (9.2-11.8); Monocytes Percent Auto 8.1 % (2.0-11.0); Neutrophils Absolute Auto 4.03 K/mm3 (1.70-7.20); Platelet Count Result 182 K/mm3 (150-420); Red Blood Count 5.61 M/mm3 (4.20-5.40); Red Cell Distribution Width 12.8 % (11.6-14.4); White Blood Count 8.6 K/mm3 (4.8-10.8)
[2025-01-04 12:13] LABS: Alanine Aminotransferase 47 U/L (6-35); Alkaline Phosphatase 116 U/L (38-126); Anion Gap 4 mmol/L (4-12); Aspartate Amino Transferase 44 U/L (14-36); Bilirubin,Total 0.6 mg/dL (0.2-1.3); Blood Urea Nitrogen 15 mg/dL (7-17); Calcium 9.2 mg/dL (8.4-10.2); Carbon Dioxide 31 mmol/L (22-30); Chloride 106 mmol/L (98-107); Estimated Glomerular Filt Rate 52; Glucose 83 mg/dL (65-110); Osmolality Calculated 291 mOsm/kg (285-295); Potassium 4.5 mmol/L (3.4-5.0); Sodium 141 mmol/L (137-145); Total Protein 6.6 g/dL (6.3-8.2)
== END 2025-01-04 11:29 | disposition home or self-care (01) ==
LOC: CHSLAB 11:29
PROVIDERS: PCP Nurse Practitioner Family; Visit Provider Nurse Practitioner Family
DX: B99.9 Unspecified infectious disease (principal)
CPT/HCPCS: 36415; 80053; 85025

== ENCOUNTER 2025-03-15 09:15 | Outpatient (CLI) | payer MEDICARE, SELFPAY ==
--- OUTSIDE RECORDS SUMMARY | 2025-03-15 09:30 | XMS_ITS | Clinical Summary ---
Author Organization [facility] [employer] Address [address] [facility] [place] [address] Care Team Providers Care Service Dog Trainer Name Role Phone Nae Lewis MD Unavailable Unavailable Luis Bowling MD Unavailable Unavailable Pam Kelly MD Unavailable [phone] Oleg Martinez MD Unavailable Carmelo Bone MD Unavailable Jomar Salgado MD Unavailable [phone] Luis Shanks MD Unavailable Pcp, [facility] Primary Care Provider Unavailable Source Comments [facility],non-owned Affiliates and Associated Physician Practices is amultiple site organization consisting of ambulatory clinics and hospital sitesin [place], [place], [place] and [place]. This disclosure is being madepursuant to the Care Everywhere program and may not contain all information available regarding this patient. Last updated 18.[facility] [employer] Allergies Active Allergy Reactions Criticality Noted Date [...] Active vitamin D, ergocalciferol, (DRISDOL) 1.25 MG (43287 UT) capsule Take 1 (one) capsule by mouth every 7 days 12 capsule 1 07/15/20 21 Active atorvastatin (LIPITOR) 80 MG tablet Take 1 (one) tablet by mouth once daily 90 tablet 1 07/15/20 21 Active insulin glargine (Lantus/Semglee) 100 units/mL penIndications:Typ e 2 diabetes mellitus with diabetic polyneuropathy, without long-term current use of insulin (HCC) Inject 35 (thirty five) Units subcutaneously at bedtime 15 mL 2 08/29/19 22 Active apixaban (ELIQUIS) 5 MG tablet Take 1 (one) tablet by mouth 2 times daily 60 tablet 5 08/29/19 22 Active JANUVIA 100 MG tabletIndications: Type 2 diabetes mellitus with diabetic polyneuropathy, without long-term current use of insulin (HCC) TAKE 1 TABLET BY MOUTH EVERY DAY 30 tablet 03/24/20 22 Active Active Problems Problem Noted Date Diagnosed Date Anxiety and depression 06/17/2021 Syncope and collapse 05/15/2020 Hyperventilation syndrome 05/15/2020 Medication overuse headache 05/27/2019 Cerebrovascular small vessel disease 05/27/2019 Intractable chronic migraine without aura and without status migrainosus 05/27/2019 Abnormal stress test 03/24/2019 History of hysterectomy for benign disease 03/15 Premature surgical menopause 03/15/2019 nursing home (current) use of anticoagulants 2018 History of DVT (deep vein thrombosis) 07/26/2018 Vitamin D deficiency 12/05/2016 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 disorder associated with diabetes galindo litus 01/10/2016 Overview (05/02/2021): Marlene Matthew, AIR CARGO GROUND OPERATIONS SUPERVISOR-DEVELOPMENTAL MATHEMATICS INSTRUCTOR Ov 10/26/20 HLD (hyperlipidemia) 01/10/2016 Neuropathy 01/10/2016 Degenerative joint disease involving multiple lyndsey ints 01/10/2016 Chronic low back pain 01/10/2016 Lumbar radiculopathy 01/10/2016 Type 2 diabetes mellitus with diabetic polyneuro lexus 10/16/2015 Overview (05/02/2021): Marlene Matthew, AIR CARGO GROUND OPERATIONS SUPERVISOR-DEVELOPMENTAL MATHEMATICS INSTRUCTOR 10/26/20 ov Essential hypertension 10/16/2015 Spinal stenosis of lumbar region Resolved Problems Problem Noted Date Diagnosed Date Resolved Date Acute deep vein thrombosis ( DVT) of other vein of lower extremity, unspecified laterality 07/28/2019 12/20/2019 History of chlamydia 03/15/2019 07 020 intermediate frame tender (current) use of anticoagulants 07/26/2018 10/06/2018 Pre-op testing 05/12/2018 10/06/2018 intermediate frame tender current use of ant icoagulant therapy 08/03/2017 10/06/2018 Overview (11/21/2017): IMO update 11 22 2017 intermediate frame tender current use of anticoagulant 06/20/2016 10/06/2018 Deep vein thrombosis (DVT) o f lower extremity, unspecified chronicity, unspecified laterality, unspecified vein 06/20/2016 10/06/2018 Hypokalemia 06/18/2016 06/26/2016 Acute renal failure 06/16/2016 06/26/20 16 Hyperkalemia 06/16/2016 06/16/2016 Metabolic acidosis 06/16/2016 6 Benign essential hypertension 01/10/2016 05/15/2016 Pain 01/10/2016 05/15/2016 Hyperlipidemia 10/16/2015 05/15/2016 Immunizations Immunization Administration Dates Next Due LeadCloud primary monoval ent 12+ yr 0.3mL Purple [...] on file Legal Sex Female 9:44 AM FINANCE LECTURER Gender Identity Not on file Sexual Orientation Not on file 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 Not on file Last Filed Vital Signs Vital Sign Reading Time Taken Comments Blood Pressure 140/79 07/12/2021 9:36 AM FINANCE LECTURER Pulse 97 07/12/2021 9:36 AM FINANCE LECTURER Temperature 36.6 C (97.9 F) 05/02/2021 2:16 PM CDT Respiratory Rate 18 11/14/2020 11:35 AM CDT Oxygen Saturation 95% 07/12/2021 9:36 AM FINANCE LECTURER Inhaled Oxygen Concentration - - Weight 74.8 kg (165 lb) 07/12/2021 9:36 AM FINANCE LECTURER Height 157.5 cm (5' 2) 07/12/2021 9:36 AM FINANCE LECTURER Body Mass Index 30.18 07/12/2021 9:36 AM FINANCE LECTURER Plan of Treatment Health Maintenance Due Date [...] 01/04/2018, 10/29/2016, Additional history exists INFLUENZA VACCINE (#1) 2025 , 05/25/2020, 05/24/2019, Additional history exists DTAP/TDAP/TD VACCINES [...] None identified Medical Devices Implanted Type Area Mail Processing Equipment Mechanic Device Identifier Shelf Expiration Date Model / Serial / Lot Proclaim Elite 5 W/Ptnt Cntrl Implanted:Qty: 1 on 10/27/2018 by Carmelo Bone MD at [facility] Back [employer] Spine 06/15/2020 [id number] / / Description:PROCLAIM ELITE I MPLANTABLE PULSE GENERATOR Kit Nrstm 60cm Octrode Perc [address] - [id number] Implanted:Qty: 1 on 10/27/2018 by Carmelo Bone MD at [facility] [employer] Cardiac Rhythm Management 05/09/2020 [id number] / [id number] / [place] Naik-Lck Implanted:Qty: 2 on 10/27/2018 by Carmelo Bone MD at [facility] 09/07/2020 1192 / / [id number] Description:NAIK LOCK Kit Nrstm 60cm Octrode Perc [address] - [id number] Implanted:Qty: 1 on 10/27/2018 by Carmelo Bone MD at [facility] [employer] Cardiac Rhythm Management 05/09/2020 [id number] / [id number] / Procedures Procedure Name Priority Date/Time Associated Diagnosis Comments COMPREHENSIVE METABOLIC PANEL Routine 07/12/2021 9:23 AM FINANCE LECTURER Essential hypertension Pure hypercholesterolemia HEMOGLOBIN A1C - POINT OF CARE (AMB) Routine 06/17/2021 11:41 AM CDT Type 2 diabetes mellitus with diabetic polyneuropathy, without long-term current use of insulin DIABETES EYE EXAM Routine 02/26/2021 MAMMO BILAT SCREENING Routine 10/26/2020 10:46 AM FINANCE LECTURER Encounter for screening mammogram for breast cancer MICROALB/CREAT URINE - POINT OF CARE (AMB) Routine 08/21/2020 11:18 AM FINANCE LECTURER Type 2 diabetes mellitus with diabetic polyneuropathy, without long-term current use of insulin DIABETES FOOT EXAM Routine 01/25/2018 HEPATITIS C ANTIBODY Routine 06/16/2016 11:27 AM CDT HIV-1 HIV-2 ANTIBODY + HIV P24 AG PANEL STAT 06/16/2016 11:27 AM CDT from Last 3 Months or Most Recently Relevant to Health Maintenance Results * (ABNORMAL) COMPREHENSIVE METABOLIC PANEL (07/12/2021 9:23 AM FINANCE LECTURER) Pathologist [facility] Glucose 221(H) 70 - 105 mg/dL [facility] [...] BLOOD SPECIMEN / Unknown 07/12/2021 9:23 AM FINANCE LECTURER 07/12/2021 Narrative Resulting Agency Comment Lab Testing performed at: [facility] [address] [place] [phone] us Nae Lewis MD LAB - CHEMISTRY ORDERABLES Final Result [facility] ACCOUNT BILL [address] [place] [address] * HEMOGLOBIN A1C - POINT OF CARE (HgbA1C) (06/17/2021 11:41 AM CDT) Pathologist [facility] Hemoglobin A1c POCT 7.2 % [facility] Expiration Date [id number] [facility] Lot # [id number] [facility] QC Verified Yes Yes [facility] Blood BLOOD SPECIMEN / Unknown 06/17/2021 11:41 AM CDT us Nae Lewis MD LAB - POINT OF CARE ORDERABLES F inal Result [facility] [address] [place] [address], [facility] [phone] * DIABETES EYE EXAM (02/26/2021) us Scanned Document HEALTH MAINTENANCE Final Result * MAMMO BILAT SCREENING (10/26/2020 10:46 AM FINANCE LECTURER) Anatomical Region Laterality Modality Breast Bilateral Mammography 10/26/2020 2:20 PM FINANCE LECTURER Impressions 10/26/2020 2:20 PM FINANCE LECTURER No mammographic evidence of malignancy in either breast. ASSESSMENT: BIRADS Category 1: Negative mammogram. RECOMMENDATION: Bilateral screening mammogram in one year. Thank you for allowing us to participate in the care of your patient. *Reading Radiologist: Joselyn Thorpe on 10/26/2020 at 2:20 PM Narrative 10/26/2020 2:20 PM FINANCE LECTURER EXAMINATION: Digital screening mammogram on 10/26/2020 10:26 [...] POINT OF CARE (AMB) (08/21/2020 11:18 AM FINANCE LECTURER) [facility] QC Verified Yes Yes [facility] Microalbumin 30 mg/L [facility] Creatinine POCT 50 mg/dL [facility] Microalbumin/Crea tinine Ratio 30-300 mg/g [facility] Lot # [id number] [facility] Expiration Date 10.26.[address] [facility] Urine URINE / Unknown 08/21/2020 1 1:18 AM FINANCE LECTURER Nae Lewis MD LAB - POINT OF CARE ORDERABLES F inal Result Performing Organization Address City/[facility]/ZIP Co de Phone Number [facility] [address], [address] [address], [facility] [phone] * DIABETES FOOT EXAM (01/25/2018) Royce Reynaga DPM HEALTH MAINTENANCE Final Resu lt * HIV-1 HIV-2 ANTIBODY + HIV P24 AG PANEL (06/16/2016 11:27 AM CDT) [facility] HIV1/2 Ab + P24 Ag Non Reactive Non Reactive 06/16/2016 5:43 PM CDT [facility] Blood BLOOD SPECIMEN / Unknown Venipuncture / Unknown 06/16/2016 11:27 AM CDT 06/16/2016 11:43 AM CDT Narrative [facility] - 06/16/2016 5:43 PM CDT No Laboratory evidence of HIV infection. Sowmya Wagoner MD LAB - CHEMISTRY ORDERABLES Fi nal Result [facility] [place] [address] * HEPATITIS C ANTIBODY (06/16/2016 11:27 AM CDT) [facility] HCV Antibody Screen Non Reactive Non Reactive 06/16/2016 3:17 PM CDT [facility] HCV S/C Ratio 0.06 0.00 - 0.79 06/16/2016 3:17 PM CDT [facility] Comment: Rejwbc-am-mncxkl ratio (S/CO) <0.80: Non Reactive Blood BLOOD SPECIMEN / Unknown Venipuncture / Unknown 06/16/2016 11:27 AM CDT 06/16/2016 2:02 PM CDT Narrative [facility] - 06/16/2016 3:17 PM CDT Non Reactive - Antibodies to Hepatitis C virus (HCV) were not detected, result does not exclude early acute HCV infection. us Sowmya Wagoner MD LAB - CHEMISTRY ORDERABLES [facility] Result [facility] [address] [place], [place] [id number] from Last 3 Months or Most Recently Relevant to Health Maintenance Insurance [address] [address] HEALTH Advance Directives * Full Code (Latest Code Status on File) Date Activated Date Inactivated Comments 05/15/2020 5:25 PM 05/17/2020 2:40 PM * Full Code Date Activated Date Inactivated Comments 05/15/2020 5:25 PM 05/15/2020 5:25 PM * Full Code Date Activated Date Inactivated Comments 06/14/2016 4:27 PM 06/20/2016 5:02 PM Care Teams Service Dog Trainer Relationship Specialty Start Date End Date Pcp, [facility] PCP - General 06/23/24 Nae Lewis MD Internal Medicine 05/16/20 Luis Bowling MD Ophthalmology 03/19/17 Pam Kelly MD [address] [facility] [address] [place] [address] Oncology 03/19/17 Oleg Martinez MD [address] [facility] [address] [place] [address] Nephrology 03/19/17 Carmelo Bone MD [address] [facility] [address] [place] [address] Anesthesiology 05/04/18 Jomar Salgado MD [address] [facility] [place] [address] [place] [address] Cardiovascular Disease 03/24/19 Luis Shanks MD [address] [id number] Anesthesiology 10/26/20
--- OUTSIDE RECORDS SUMMARY | 2025-03-15 09:30 | XMS_ITS | Patient Health Record ---
Author Organization [facility] Address [address] [place] [address] Care Team Providers Care Senior Front End Developer Name Role Phone Bernie Madsen MD Primary Care Provider Unavail able Michelle THORNE, Alevism Unavailable Allergies Allergen (clinical drug ingredient) Drug/Non Drug Allergy documented on EMR Reaction Allergy Type Onset Date Status codeine Codeine Sulfate Unknown Drug Allergy A ctive penicillin G Penicillin G Potassium Unknown Drug Allergy Active Reason For Referral No Information Medications Medication SIG (Take, Route, Frequency, Duration) Notes Start Date End Date Status Lisinopril 20 MG 1 tablet Orally Once a day Active Tapentadol HCl 100 MG 1 tablet Orally Tw ice a day Active metFORMIN HCl ER 500 MG 4 tablets with e vening meal Orally Once a day Active Topiramate 25 MG 2 Tablets Orally Twi ce a day Active Pregabalin 100 MG 1 capsule Orally Thr ee times a day Active Atorvastatin Calcium 80 MG 1 tablet Oral ly Once a day Active Fioricet 50-300-40 MG 1 capsule as neede d Orally every 4 hrs Active Warfarin Sodium 5 MG 1 tablet Orally Onc e a day Active Social History Tobacco Use: Social History Observation Description Date Details (start date - stop date) Former Smoker NA - NA Tobacco Use/Smoking Question Answer Notes Are you a former smoker Alcohol Screen Question Answer Notes Did you have a drink containing alcohol in the p ast year? No Points 0 Interpretation Negative Problems Problem Type SNOMED Code ICD Code Onset Dates Problem Status W/U Status Risk Notes Problem Essential hypertension (85395836) Essential (primary) hypertension (I10) Active confirmed BP is at goal. 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 She is euvolemic serum creatinine is normal Continue lisinopril for BP control recheck urine protein excretion before next visit Plan Of Treatment Future Test Test Name Order Date URINE PROTEIN, TOTAL, RANDOM (W/O CREATI NINE) 04/27/2017 Urinalysis (UA), Complete, Reflex to Cul ture 04/27/2017 RENAL FUNCTION PANEL 05/26/2019 URINALYSIS, COMPLETE W/REFLEX TO CULTURE 05/26/2019 Insurance Providers Payer Name Payer Address Payer Phone Subscriber Number Group Number Insured Name Patient Relationship to Insured Coverage Start Date Coverage End Date EXCLUSIVE CHOICE [facility] [employer] [address] [address] [place], [place] [id number] Beatrice Carl Self - patient is the insured Medical (General) History Medical History History ICD Code DM w/ neuropathy HTN HLD
--- OUTSIDE RECORDS SUMMARY | 2025-03-15 09:30 | XMS_ITS | Encounter Summary ---
Author Organization [facility] Address [address] [facility] [place] [address] Care Team Providers Care Hoist Mechanic Name Role Phone Bernie Madsen MD Primary Care Provider [phone] Nae Lewis MD Primary Care Provider Unavailab Bernie Cope MD Primary Care Provider [phone] Nae Lewis MD Primary Care Provider Unavailab Nae Osullivan MD Primary Care Provider Unavailab Nae Osullivan MD Unavailable Unavailable Ely Gonsales APRN-LOAN REVIEW OFFICER Unavailable [phone] Luis Bowling MD Unavailable Unavailable Pam Kelly MD Unavailable [phone] Oleg Martinez MD Unavailable [phone] Carmelo Bone MD Unavailable Jomar Salgado MD Unavailable [phone] Luis Shanks MD Unavailable Pcp, [facility] Primary Care Provider Unavailable Bernie Madsen MD Unavailable [phone] Reason for Visit * Reason Onset Date Comments MEDICATION REFILL 07/07/2018 Encounter Details Date Type Department Care Team (Late st Contact Info) Description 07/07/2018 Refill Internal Medicine Clinic at [address] [place] [address] Brittaney Méndez MD [address] [place] [address] MEDICATION REFILL Social History Tobacco Use Types Packs/Day Years Used Date Smoking Tobacco: Some Days Cigarettes 0.5 30 Smokeless Tobacco: Never Comments:e-cig Alcohol Use Standard Drinks/Week Comments No 0 (1 standard drink = 0.6 oz pur e alcohol) Comments No Sex and Gender Information Value Date Recorded Sex Assigned at Not on file Legal Sex Female 9:44 AM WINDCHILL ADMINISTRATOR Gender Identity Not on file Sexual Orientation Not on file 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 Answer Date of Assessment Author No 03/03/2018 6:59 AM Annie Velázquez RN * Is person blind or have serious difficulty seeing? Answer Date of Assessment Author No 03/03/2018 6:59 AM Annie Dangelo RN * Does person have serious difficulty walking/climbing stairs? Answer Date of Assessment Author No 03/03/2018 6:59 AM Annie Velázquez RN * Does person have difficulty dressing/bathing? Answer Date of Assessment Author No 03/03/2018 6:59 AM Annie Velázquez RN * Does person have difficulty doing [...] on filedocumented in this encounter Care Teams Hoist Mechanic Relationship Specialty Start Date End Date Bernie Madsen MD PCP - General Internal Medicine 10/16/15 01/25/19 Nae Lewis MD PCP - General Internal Medicine 01/26/19 01/26/19 Bernie Madsen MD PCP - General 01/27/19 01/27/19 Nae Lewis MD PCP - General Internal Medicine 01/28/19 05/15/20 Nae Lewis MD PCP - General Internal Medicine 05/16/20 06/22/24 Ely Gonsales, TECHNICAL PHOTOGRAPHER-LOAN REVIEW OFFICER [address] [place] [address] PCP - Attributed-[facility] 02/22/20 02/09/23 Pcp, [facility] PCP - General 06/23/24 Bernie Madsen MD [address] [address] PCP - Attributed-Exclusive Choice 02/06/17 01/25/19 Nae Lewis MD Internal Medicine 05/16/20 Luis Bowling MD [address] [place] [address] Ophthalmology 03/19/17 Pam Kelly MD [address] [facility] [address] [place] [address] [place] [address] Oncology 03/19/17 Oleg Martinez MD [address] [facility] [address] [place] [id number] Nephrology 03/19/17 Carmelo Bone MD [address] [facility] [address] [place] [address] Anesthesiology 05/04/18 Jomar Salgado MD [address] [facility] [address] [place] [address] Cardiovascular Disease 03/24/19 Luis Shanks MD [address] [address] Anesthesiology 10/26/20 documented as of this encounter
--- OUTSIDE RECORDS SUMMARY | 2025-03-15 09:30 | XMS_ITS | Encounter Summary ---
Author Organization [facility] Address [address] [place] [address] Phone Care Team Providers Care Rigging Slinger Name Role Phone Estuardo Rosenberg MD Primary Care Provider [phone] Reason for Visit * Reason Comments Medication Refill Encounter Details Date Type Department Care Team (Late st Contact Info) Description 08/10/2023 Refill [facility] Scheduling [address] [place] [address] Yamileth Sainz, HIGH WIRE ARTIST, MANAGEMENT ARCHITECT [address] [place] [address] Medication Refill Social History Tobacco Use Types [...] unspecified documented in this encounter Care Teams Rigging Slinger Relationship Specialty Start Date End Date Estuardo Rosenberg MD [address] [place] [address] PCP - General Family Medicine 12/06/21 documented as of this encounter
--- OUTSIDE RECORDS SUMMARY | 2025-03-15 09:30 | XMS_ITS | Encounter Summary ---
Author Organization [facility] Address [address] [place] [address] Care Team Providers Care Money Market Dealer Name Role Phone Bernie Madsen MD Primary Care Provider [phone] Nae Lewis MD Primary Care Provider Unavailab Bernie Cope MD Primary Care Provider [phone] Nae Lewis MD Primary Care Provider Unavailab Nae Osullivan MD Primary Care Provider Unavailab Nae Osullivan MD Unavailable Unavailable Ely Gonsales APRN-TECHNOLOGY INTERNSHIP Unavailable [phone] Luis Bowling MD Unavailable Unavailable Pam Kelly MD Unavailable [phone] Oleg Martinez MD Unavailable [phone] Carmelo Bone MD Unavailable Jomar Salgado MD Unavailable [phone] Luis Shanks MD Unavailable [phone] Pcp, [facility] Primary Care Provider Unavailable Bernie Madsen MD Unavailable [phone] Reason for Visit * Reason Onset Date Comments MEDICATION REFILL 08/09/2018 Encounter Details Date Type Department Care Team (Late st Contact Info) Description 08/09/2018 Refill Internal Medicine Clinic at [address] [place] [address] Brittaney Méndez MD [address] [place] [address] MEDICATION REFILL Social History Tobacco Use Types Packs/Day Years Used Date Smoking Tobacco: Some Days Cigarettes 0.5 30 Smokeless Tobacco: Never Comments:e-cig Alcohol Use Standard Drinks/Week Comments No 0 (1 standard drink = 0.6 oz pur e alcohol) Comments No Sex and Gender Information Value Date Recorded Sex Assigned at Not on file Legal Sex Female 9:44 AM FIELD RESEARCH ASSOCIATE Gender Identity Not on file Sexual Orientation [...] on filedocumented in this encounter Care Teams Money Market Dealer Relationship Specialty Start Date End Date Bernie Madsen MD PCP - General Internal Medicine 10/16/15 01/25/19 Nae Lewis MD PCP - General Internal Medicine 01/26/19 01/26/19 Bernie Madsen MD PCP - General 01/27/19 01/27/19 Nae Lewis MD PCP - General Internal Medicine 01/28/19 05/15/20 Nae Lewis MD PCP - General Internal Medicine 05/16/20 06/22/24 Ely Gonsales, FITNESS STUDIES TEACHER-TECHNOLOGY INTERNSHIP [address] [place] [address] PCP - Attributed-[facility] 02/22/20 02/09/23 Pcp, [facility]- PCP - General 06/23/24 Bernie Madsen MD [address] [address] PCP - Attributed-[facility] 02/06/17 01/25/19 Nae Lewis MD Internal Medicine 05/16/20 Luis Bowling MD [address] [place] [address] Ophthalmology 03/19/17 Pam Kelly MD [address] [facility] [address] [place] [address] [place] [address] Oncology 03/19/17 Oleg Martinez MD [address] [facility] [address] [place] [address] Nephrology 03/19/17 Carmelo Bone MD [address] [facility] [address] [place] [address] Anesthesiology 05/04/18 Jomar Salgado MD [address] [facility] [address] [place] [address] Cardiovascular Disease 03/24/19 Luis Shanks MD [address] [address] Anesthesiology 10/26/20 documented as of this encounter
--- OUTSIDE RECORDS SUMMARY | 2025-03-15 09:30 | XMS_ITS | Encounter Summary ---
Author Organization [facility] Address [address] [place] [address] Care Team Providers Care Psychiatric Registered Nurse Name Role Phone Bernie Madsen MD Primary Care Provider [phone] Nae Lewis MD Primary Care Provider Unavailab Bernie Cope MD Primary Care Provider [phone] Nae Lewis MD Primary Care Provider Unavailab Nae Osullivan MD Primary Care Provider Unavailab Nae Osullivan MD Unavailable Unavailable Ely Gonsales APRN-ANIMAL PATHOLOGY TEACHER Unavailable [phone] Luis Bowling MD Unavailable Unavailable aPm Kelly MD Unavailable [phone] Oleg Martinez MD Unavailable [phone] Carmelo Bone MD Unavailable Jomar Salgado MD Unavailable [phone] Luis Shanks MD Unavailable Pcp, [facility] Primary Care Provider Unavailable Bernie Madsen MD Unavailable [phone] Reason for Visit * Reason Onset Date Comments MEDICATION REFILL 07/09/2018 Encounter Details Date Type Department Care Team (Late st Contact Info) Description 07/09/2018 Refill Internal Medicine Clinic at [address] [place] [address] Brittaney Méndez MD [address] [place] [address] MEDICATION REFILL Social History Tobacco Use Types Packs/Day Years Used Date Smoking Tobacco: Some Days Cigarettes 0.5 30 Smokeless Tobacco: Never Comments:e-cig Alcohol Use Standard Drinks/Week Comments No 0 (1 standard drink = 0.6 oz pur e alcohol) Comments No Sex and Gender Information Value Date Recorded Sex Assigned at Not on file Legal Sex Female 9:44 AM PRODUCT EXAMINER Gender Identity Not on file Sexual Orientation [...] on filedocumented in this encounter Care Teams Psychiatric Registered Nurse Relationship Specialty Start Date End Date Bernie Madsen MD PCP - General Internal Medicine 10/16/15 01/25/19 Nae Lewis MD PCP - General Internal Medicine 01/26/19 01/26/19 Bernie Madsen MD PCP - General 01/27/19 01/27/19 Nae Lewis MD PCP - General Internal Medicine 01/28/19 05/15/20 Nae Lewis MD PCP - General Internal Medicine 05/16/20 06/22/24 Ely Gonsales, LEGAL ADMINISTRATIVE ASSISTANT-ANIMAL PATHOLOGY TEACHER [address] [place] [address] PCP - Attributed-[facility] 02/22/20 02/09/23 Pcp, [facility]- PCP - General 06/23/24 Bernie Madsen MD [address] [address] PCP - Attributed-[facility] 02/06/17 01/25/19 Nae Lewis MD Internal Medicine 05/16/20 Luis Bowling MD [address] [place] [address] Ophthalmology 03/19/17 Pam Kelly MD [address] [facility] [address] [place] [address] [place] [address] Oncology 03/19/17 Oleg Martinez MD [address] [facility] [address] [place] [address] Nephrology 03/19/17 Carmelo Bone MD [address] [facility] [address] [place] [address] Anesthesiology 05/04/18 Jomar Salgado MD [address] [facility] [address] [place] [address] Cardiovascular Disease 03/24/19 Luis Shanks MD [address] [address] Anesthesiology 10/26/20 documented as of this encounter
--- OUTSIDE RECORDS SUMMARY | 2025-03-15 09:30 | XMS_ITS | Clinical Summary ---
Author Organization [facility] Address [address] [place] [address] Phone Care Team Providers Care Apparel Cutter Name Role Phone Estuardo Rosenberg MD Primary Care Provider [phone] Social History Tobacco Use Types Packs/Day Years [...] Cervical Cancer Screening (CCS) 01/13/2000 HPV/Cotest 01/13/2000 Cologuard 2015 Colonoscopy 2015 Colorectal Cancer Screening 2015 Immunochemical Fecal Occult Blood 2015 Pneumococcal Immunization (50+ years) (2 of 2 - PCV) 01/13/2020 01/24/2016 Zoster Immunization (2 of 2) 08/12/2021 06/17/2021 SARS-COV-2 Immunization ( season) 2024 06/17/2021, 09/11/2020, 08/21/2020 Influenza Immunization (#1) 2025 1012/2020, 05/25/2020, 05/24/2019, Additional history exists Respiratory Syncytial Virus (RSV) Immunization (Adult) (1 - 1-dose 75+ series) 2045 Pneumococcal Immunization Combined Discontinued 01/24/2016 DTaP/Tdap/Td Immunization Discontinued 08/19/2016 TdaP Immunization Completed 08/19/2016 Hepatitis B Immunization Completed 017, 08/19/2016, 05/15/2016 Human Papillomavirus (HPV) Immunization Aged Out No longer eligible based on patient's age to complete this topic Meningococcal Immunization (ACWY) Aged Out No longer eligible based on patient's age to complete this topic Rotavirus Immunization Aged Out No lo nger eligible based on patient's age to complete this topic Insurance MEDICAID [employer] Care Teams Apparel Cutter Relationship Specialty Start Date End Date Estuardo Rosenberg MD [address] [place] [address] PCP - General Family Medicine 12/06/21
[2025-03-15 09:54] LABS: Albumin Level 4.3 g/dL (3.5-5.1); Anion Gap 5 mmol/L (4-12); Blood Urea Nitrogen 10 mg/dL (7-17); Calcium 8.9 mg/dL (8.4-10.2); Carbon Dioxide 29 mmol/L (22-30); Chloride 108 mmol/L (98-107); Estimated Glomerular Filt Rate 51; Glucose 97 mg/dL (65-110); Osmolality Calculated 293 mOsm/kg (285-295); Potassium 4.1 mmol/L (3.4-5.0); Sodium 142 mmol/L (137-145)
[2025-03-15 09:56] LABS: Alanine Aminotransferase 32 U/L (6-35); Albumin Level 4.3 g/dL (3.5-5.1); Alkaline Phosphatase 124 U/L (38-126); Anion Gap 6 mmol/L (4-12); Aspartate Amino Transferase 33 U/L (14-36); Bilirubin,Total 0.4 mg/dL (0.2-1.3); Blood Urea Nitrogen 10 mg/dL (7-17); Calcium 9.0 mg/dL (8.4-10.2); Carbon Dioxide 27 mmol/L (22-30); Chloride 108 mmol/L (98-107); Estimated Glomerular Filt Rate 52; Glucose 99 mg/dL (65-110); Osmolality Calculated 291 mOsm/kg (285-295); Potassium 4.2 mmol/L (3.4-5.0); Sodium 141 mmol/L (137-145); Total Protein 6.9 g/dL (6.3-8.2)
[2025-03-15 09:58] LABS: Total Protein Urine Random 12 mg/dL; Ur Ttl Prot Creatinine Ratio 0.56 mg/mg (0-0.20)
[2025-03-15 10:00] LABS: Hemoglobin A1C 5.9 % (<5.7)
[2025-03-15 10:07] LABS: MALB Creatinine Ratio 28.3 mg/g (0-30)
== END 2025-03-15 09:16 | disposition home or self-care (01) ==
LOC: CHSLAB 09:17
PROVIDERS: PCP Nurse Practitioner Family; Visit Provider Internal Medicine Nephrology
DX: E55.9 Vitamin D deficiency, unspecified (principal); N25.81 Secondary hyperparathyroidism of renal origin; E11.22 Type 2 diabetes mellitus with diabetic chronic kidney disease; Z71.89 Other specified counseling; R74.8 Abnormal levels of other serum enzymes; N18.31 Chronic kidney disease, stage 3a
CPT/HCPCS: 36415; 80053; 80069; 82043; 82248; 82306; 82570; 83036; 83970; 84156

== ENCOUNTER 2025-07-05 12:21 | Outpatient (CLI) | payer MEDICARE, SELFPAY ==
--- OUTSIDE RECORDS SUMMARY | 2001-09-28 09:15 | XMS_ITS | Continuity of Care Document ---
Author Organization [facility] Address [address] [place] [address] Phone Care Team Providers Care President [place] Name Role Phone Barb Roland Unavailable Unavailable Advance Directives Directive Yes / No Effective Date File Name No Information Encounters Encounter Description Practice Location Reason(s) For Visit Diagnoses Date Provider Providers Copied on Encounter [facility], [address], [place], [place], [id number], [place] tel:[phone] [facility] No Information [phone] , [address], [place], [address], [place]. tel:[phone] Family History Family Member Type Diagnosis Age At Onset No Information Payers Payer name Insurance type Covered alliance party ID Authoriza tion(s) [facility] Commercial CI [id number] Social History Type Description Quantity Date Captured Comments Sex Female Smoking Status No Information Chief Complaint And Reason For Visit No Information Reason For Referral Reason For Referral No Information History Of Present Illness Encounter Date Complaint History Of Prese nt Illness No Information Functional Status Date Functional Assessmen t No Information Instructions Date Instruction Additional Infor mation No Information Assessments Type Assessment Date No Information Patient Care Teams Name Effective Dates (start - stop) Status Members No Information
[2025-07-05 13:07] LABS: Hemoglobin A1C 6.0 % (<5.7)
--- OUTSIDE RECORDS SUMMARY | 2025-07-05 13:30 | XMS_ITS | Clinical Summary ---
Author Organization [facility] Address [address] [facility] [place] [address] Care Team Providers Care Lending Activities Supervisor Name Role Phone Nae Lewis MD Unavailable Luis Bowling MD Unavailable Unavailable Pam Kelly MD Unavailable [phone] Oleg Martinez MD Unavailable [phone] Carmelo Bone MD Unavailable Jomar Salgado MD Unavailable [phone] Luis Shanks MD Unavailable [phone] Pcp, [facility] Primary Care Provider Unavailable Source Comments [facility],non-owned Affiliates and Associated Physician Practices is amultiple site organization consisting of ambulatory clinics and hospital sitesin [place], [place], [place] and [place]. This disclosure is being madepursuant to the Care Everywhere program and may not contain all information available regarding this patient. 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 disorder associated with diabetes galindo litus 01/10/2016 Overview (05/02/2021): Marlene Matthew, FINE DINING SERVER-SUPERVISOR FELLING BUCKING Ov 10/26/20 HLD (hyperlipidemia) 01/10/2016 Neuropathy 01/10/2016 Degenerative joint disease involving multiple lyndsey ints 01/10/2016 Chronic low back pain 01/10/2016 Lumbar radiculopathy 01/10/2016 Type 2 diabetes mellitus with diabetic polyneuro lexus 10/16/2015 Overview (05/02/2021): Marlene Matthew, FINE DINING SERVER-SUPERVISOR FELLING BUCKING 10/26/20 ov Essential hypertension 10/16/2015 Spinal stenosis of lumbar region Resolved Problems Problem Noted Date Diagnosed Date Resolved Date Acute deep vein thrombosis ( DVT) of other vein of lower extremity, unspecified laterality 07/28/2019 12/20/2019 History of chlamydia 03/15/2019 020 senior living (current) use of anticoagulants 07/26/2018 10/06/2018 Pre-op testing 05/12/2018 10/06/2018 buttermaker current use of ant icoagulant therapy 08/03/2017 10/06/2018 Overview (11/21/2017): IMO update 11 22 2017 buttermaker current use of anticoagulant 06/20/2016 10/06/2018 Deep vein thrombosis (DVT) o f lower extremity, unspecified chronicity, unspecified laterality, unspecified vein 06/20/2016 10/06/2018 Hypokalemia 06/18/2016 06/26/2016 Acute renal failure 06/16/2016 06/26/20 16 Hyperkalemia 06/16/2016 06/16/2016 Metabolic acidosis 06/16/2016 6 Benign essential hypertension 01/10/2016 05/15/2016 Pain 01/10/2016 05/15/2016 Hyperlipidemia 10/16/2015 05/15/2016 Immunizations Immunization Administration Dates Next Due EpicForce primary monoval ent 12+ yr 0.3mL Purple [...] on file Legal Sex Female 9:44 AM COMMUNITY HEALTH COORDINATOR Gender Identity Not on file Sexual Orientation Not on file 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 Not on file Last Filed Vital Signs Vital Sign Reading Time Taken Comments Blood Pressure 140/79 07/12/2021 9:36 AM COMMUNITY HEALTH COORDINATOR Pulse 97 07/12/2021 9:36 AM COMMUNITY HEALTH COORDINATOR Temperature 36.6 C (97.9 F) 05/02/2021 2:16 PM CDT Respiratory Rate 18 11/14/2020 11:35 AM CDT Oxygen Saturation 95% 07/12/2021 9:36 AM COMMUNITY HEALTH COORDINATOR Inhaled Oxygen Concentration - - Weight 74.8 kg (165 lb) 07/12/2021 9:36 AM COMMUNITY HEALTH COORDINATOR Height 157.5 cm (5' 2) 07/12/2021 9:36 AM COMMUNITY HEALTH COORDINATOR Body Mass Index 30.18 07/12/2021 9:36 AM COMMUNITY HEALTH COORDINATOR Plan of Treatment Health Maintenance Due Date [...] 02/26/2023 02/26/2021, 2020, 01/06/2019, Additional history exists DEPRESSION SCREENING 08/24/2024 DIABETES - URINE PROTEIN SCREENING 08/24/2024 08/21/2020, 01/04/2018, 10/29/2016, Additional history exists COVID-19 VACCINE ( season) 2025 06/17/2021, 09/11/2020, 08/21/2020 INFLUENZA VACCINE (#1) 2025 , 05/25/2020, 05/24/2019, [...] None identified Medical Devices Implanted Type Area Bill Hiker Device Identifier Shelf Expiration Date Model / Serial / Lot Proclaim Elite 5 W/Ptnt Cntrl Implanted:Qty: 1 on 10/27/2018 by Carmelo Bone MD at [facility] 06/15/2020 [id number] / / Description:PROCLAIM ELITE I MPLANTABLE PULSE GENERATOR Kit Nrstm 60cm Octrode Perc [address] - [id number] Implanted:Qty: 1 on 10/27/2018 by Carmelo Bone MD at [facility] 05/09/2020 [id number] / [id number] / [place] Naik-Lck Implanted:Qty: 2 on 10/27/2018 by Carmelo Bone MD at [facility] 09/07/2020 [id number] / / [id number] Description:NAIK LOCK Kit Nrstm 60cm Octrode Perc [address] - [id number] Implanted:Qty: 1 on 10/27/2018 by Carmelo Bone MD at [facility] [employer] 05/09/2020 [id number] / [id number] / Procedures Procedure Name Priority Date/Time Associated Diagnosis Comments COMPREHENSIVE METABOLIC PANEL Routine 07/12/2021 9:23 AM COMMUNITY HEALTH COORDINATOR Essential hypertension Pure hypercholesterolemia HEMOGLOBIN A1C - POINT OF CARE (AMB) Routine 06/17/2021 11:41 AM CDT Type 2 diabetes mellitus with diabetic polyneuropathy, without long-term current use of insulin DIABETES EYE EXAM Routine 02/26/2021 MAMMO BILAT SCREENING Routine 10/26/2020 10:46 AM COMMUNITY HEALTH COORDINATOR Encounter for screening mammogram for breast cancer MICROALB/CREAT URINE - POINT OF CARE (AMB) Routine 08/21/2020 11:18 AM COMMUNITY HEALTH COORDINATOR Type 2 diabetes mellitus with diabetic polyneuropathy, without long-term current use of insulin DIABETES FOOT EXAM Routine 01/25/2018 HEPATITIS C ANTIBODY Routine 06/16/2016 11:27 AM CDT HIV-1 HIV-2 ANTIBODY + HIV P24 AG PANEL STAT 06/16/2016 11:27 AM CDT from Last 3 Months or Most Recently Relevant to Health Maintenance Results * (ABNORMAL) COMPREHENSIVE METABOLIC PANEL (07/12/2021 9:23 AM COMMUNITY HEALTH COORDINATOR) [facility] Glucose 221(H) 70 - 105 mg/dL [facility] [...] BLOOD SPECIMEN / Unknown 07/12/2021 9:23 AM COMMUNITY HEALTH COORDINATOR 07/12/2021 Narrative Resulting Agency Comment Lab Testing performed at: [facility] [address] [facility] [phone] [place] Nae Lewis MD LAB - CHEMISTRY ORDERABLES Final Result [facility] ACCOUNT BILL [address] [place] [address] * HEMOGLOBIN A1C - POINT OF CARE (HgbA1C) (06/17/2021 11:41 AM CDT) [facility] Hemoglobin A1c POCT 7.2 % [facility] Expiration Date [id number] [facility] Lot # [id number] [facility] QC Verified Yes Yes [facility] Blood BLOOD SPECIMEN / Unknown 06/17/2021 11:41 AM CDT us Nae Lewis MD LAB - POINT OF CARE ORDERABLES F inal Result [facility] [address] [place] [address], [facility] [phone] * DIABETES EYE EXAM (02/26/2021) us Scanned Document HEALTH MAINTENANCE Final Result * MAMMO BILAT SCREENING (10/26/2020 10:46 AM COMMUNITY HEALTH COORDINATOR) Anatomical Region Laterality Modality Breast Bilateral Mammography 10/26/2020 2:20 PM COMMUNITY HEALTH COORDINATOR Impressions 10/26/2020 2:20 PM COMMUNITY HEALTH COORDINATOR No mammographic evidence of malignancy in either breast. ASSESSMENT: BIRADS Category 1: Negative mammogram. RECOMMENDATION: Bilateral screening mammogram in one year. Thank you for allowing us to participate in the care of your patient. *Reading Radiologist: Joselyn Thorpe on 10/26/2020 at 2:20 PM Narrative 10/26/2020 2:20 PM COMMUNITY HEALTH COORDINATOR EXAMINATION: Digital screening mammogram on 10/26/2020 10:26 [...] POINT OF CARE (AMB) (08/21/2020 11:18 AM COMMUNITY HEALTH COORDINATOR) Pathologist [facility] QC Verified Yes Yes [facility] Microalbumin 30 mg/L [facility] Creatinine POCT 50 mg/dL [facility] Microalbumin/Crea tinine Ratio 30-300 mg/g [facility] Lot # [id number] [facility] Expiration Date 10.26.[address] [address] [facility] Urine URINE / Unknown 08/21/2020 1 1:18 AM COMMUNITY HEALTH COORDINATOR Nae Lewis MD LAB - POINT OF CARE ORDERABLES F inal Result [facility] [address] [place] [address], [facility] [phone] * DIABETES FOOT EXAM (01/25/2018) Royce Reynaga DPM HEALTH MAINTENANCE Final Resu lt * HIV-1 HIV-2 ANTIBODY + HIV P24 AG PANEL (06/16/2016 11:27 AM CDT) [facility] HIV1/2 Ab + P24 Ag Non Reactive Non Reactive 06/16/2016 5:43 PM CDT [facility] Blood BLOOD SPECIMEN / Unknown Venipuncture / Unknown 06/16/2016 11:27 AM CDT 06/16/2016 11:43 AM CDT Narrative [facility] - 06/16/2016 5:43 PM CDT No Laboratory evidence of HIV infection. Sowmya Wagoner MD LAB - CHEMISTRY ORDERABLES Fi nal Result [facility] [place] [address] * HEPATITIS C ANTIBODY (06/16/2016 11:27 AM CDT) [facility] HCV Antibody Screen Non Reactive Non Reactive 06/16/2016 3:17 PM CDT [facility] HCV S/C Ratio 0.06 0.00 - 0.79 06/16/2016 3:17 PM CDT [facility] Comment: Rnwldq-do-doflri ratio (S/CO) <0.80: Non Reactive Blood BLOOD SPECIMEN / Unknown Venipuncture / Unknown 06/16/2016 11:27 AM CDT 06/16/2016 2:02 PM CDT Narrative [facility] - 06/16/2016 3:17 PM CDT Non Reactive - Antibodies to Hepatitis C virus (HCV) were not detected, result does not exclude early acute HCV infection. Sowmya Wagoner MD LAB - CHEMISTRY ORDERABLES [facility] Result Performing Organization Address City/State/[facility] Co de Phone Number [facility] [address] [place] [address] from Last 3 Months or Most Recently Relevant to Health Maintenance [place] [address] [place] [address] HEALTH Advance Directives * Full Code (Latest Code Status on File) Date Activated Date Inactivated Comments 05/15/2020 5:25 PM 05/17/2020 2:40 PM * Full Code Date Activated Date Inactivated Comments 05/15/2020 5:25 PM 05/15/2020 5:25 PM * Full Code Date Activated Date Inactivated Comments 06/14/2016 4:27 PM 06/20/2016 5:02 PM Care Teams Lending Activities Supervisor Relationship Specialty Start Date End Date Pcp, [facility]- PCP - General 06/23/24 Nae Lewis MD Internal Medicine 05/16/20 Luis Bowling MD Ophthalmology 03/19/17 Pam Kelly MD [address] [facility] [address] [place] [address] Oncology 03/19/17 Oleg Martinez MD [address] [facility] [address] [place] [address] Nephrology 03/19/17 Carmelo Bone MD [address] [facility] [address] [place] [address] Anesthesiology 05/04/18 Jomar Salgado MD [facility] [facility] [place] [address] [place] [address] Cardiovascular Disease 03/24/19 Luis Shanks MD [facility] [address] [place] [address] Anesthesiology 10/26/20
--- OUTSIDE RECORDS SUMMARY | 2025-07-05 13:30 | XMS_ITS | Encounter Summary ---
Author Organization [facility] Address [address] [facility] [place] [address] Care Team Providers Care Fish Processor Name Role Phone Bernie Madsen MD Primary Care Provider [phone] Nae Lewis MD Primary Care Provider [phone] Bernie Madsen MD Primary Care Provider [phone] Nae Lewis MD Primary Care Provider [phone] Nae Lewis MD Primary Care Provider [phone] Nae Lewis MD Unavailable Ely Gonsales FRIT BURNER-INPATIENT NURSING AIDE Unavailable [phone] Luis Bowling MD Unavailable Unavailable Pam Kelly MD Unavailable [phone] Oleg Martinez MD Unavailable Carmelo Bone MD Unavailable Jomar Salgado MD Unavailable [phone] Luis Shanks MD Unavailable Pcp, [facility] Primary Care Provider Unavailable Bernie Madsen MD Unavailable [phone] Reason for Visit * Reason Onset Date Comments MEDICATION REFILL 08/09/2018 Encounter Details Date Type Department Care Team (Late st Contact Info) Description 08/09/2018 Refill Internal Medicine Clinic at 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 General Yes Iman Jean, RN Note: Beatrice will call the doctor if she has an increased temperature (greater than 101), unrelieved pain, symptoms that are not relieved or worsening, and side effects of medications. Progress toward goal attainment: 0% : Ongoing / No progress Barriers to goal attainment: None identified documented as of this encounter Visit Diagnoses Not on filedocumented in this encounter Care Teams Fish Processor Relationship Specialty Start Date End Date Bernie Madsen MD PCP - General Internal Medicine 10/16/15 01/25/19 Nae Lewis MD PCP - General Internal Medicine 01/26/19 01/26/19 Bernie Madsen MD PCP - General 01/27/19 01/27/19 Nae Lewis MD PCP - General Internal Medicine 01/28/19 05/15/20 Nae Lewis MD PCP - General Internal Medicine 05/16/20 06/22/24 Ely Gonsales, FRIT BURNER-INPATIENT NURSING AIDE [address] [facility] [place] [address] PCP - Attributed-[facility] 02/22/20 02/09/23 Pcp, [facility]- PCP - General 06/23/24 Bernie Madsen MD [address] [address] PCP - Attributed-Exclusive Choice 02/06/17 01/25/19 Nae Lewis MD Internal Medicine 05/16/20 Luis Bowling MD [address] [facility] [address] Ophthalmology 03/19/17 Pam Kelly MD [address] [facility] [address] [place] [address] Oncology 03/19/17 Oleg Martinez MD [address] [facility] [address] [place] [address] Nephrology 03/19/17 Carmelo Bone MD [address] [facility] [address] [place] [address] Anesthesiology 05/04/18 Jomar Salgado MD [address] [facility] [address] [place] [address] Cardiovascular Disease 03/24/19 Luis Shanks MD [facility] [address] Anesthesiology 10/26/20 documented as of this encounter
--- OUTSIDE RECORDS SUMMARY | 2025-07-05 13:31 | XMS_ITS | Encounter Summary ---
Author Organization [facility] Address [address] [facility] [place] [address] Care Team Providers Care Dialysis Nurse Name Role Phone Bernie Madsen MD Primary Care Provider [phone] Nae Lewis MD Primary Care Provider [phone] Bernie Madsen MD Primary Care Provider [phone] Nae Lewis MD Primary Care Provider [phone] aNe Lewis MD Primary Care Provider [phone] Nae Lewis MD Unavailable Ely Gonsales USER EXPERIENCE LEAD-SPECIAL PROJECTS MANAGER Unavailable [phone] Luis Bowling MD Unavailable Unavailable Pam Kelly MD Unavailable [phone] Oleg Martinez MD Unavailable Carmelo Bone MD Unavailable Jomar Salgado MD Unavailable [phone] Luis Shanks MD Unavailable Pcp, [facility] Primary Care Provider Unavailable Bernie Madsen MD Unavailable [phone] Reason for Visit * Reason Onset Date Comments MEDICATION REFILL 07/07/2018 Encounter Details Date Type Department Care Team (Late st Contact Info) Description 07/07/2018 Refill Internal Medicine Clinic at [facility] [address] [place] [address] Brittaney Méndez MD [address] [place] [address] MEDICATION REFILL Social History Tobacco Use Types Packs/Day Years Used Date Smoking Tobacco: Some Days Cigarettes 0.5 30 Smokeless Tobacco: Never Comments:e-cig Alcohol Use Standard Drinks/Week Comments No 0 (1 standard drink = 0.6 oz pur e alcohol) Comments No Sex and Gender Information Value Date Recorded Sex Assigned at Not on file 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 [place] [address] PCP - Attributed-[facility] ST[facility] 02/22/20 02/09/23 Pcp, [facility]- PCP - General 06/23/24 Bernie Madsen MD [address] [address] PCP - Attributed-[facility] 02/06/17 01/25/19 Nae Lewis MD Internal Medicine 05/16/20 Luis Bowling MD [address] [facility] [place] [address] Ophthalmology 03/19/17 Pam Kelly MD [address] [facility] [address] [place] [address] Oncology 03/19/17 Oleg Martinez MD [address] [facility] [address] [place] [id number] Nephrology 03/19/17 Carmelo Bone MD [address] [facility] [address] [place] [address] Anesthesiology 05/04/18 Jomar Salgado MD [address] [facility] [address] [place] [address] Cardiovascular Disease 03/24/19 Luis Shanks MD [facility] [address] Anesthesiology 10/26/20 documented as of this encounter
--- OUTSIDE RECORDS SUMMARY | 2025-07-05 13:31 | XMS_ITS | Encounter Summary ---
Author Organization [facility] Address [address] [place] [address] Phone Care Team Providers Care Glaciologist Name Role Phone Estuardo Rosenberg MD Primary Care Provider [phone] Reason for Visit * Reason Comments Medication Refill Encounter Details Date Type Department Care Team (Late st Contact Info) Description 08/10/2023 Refill [facility] Scheduling [address] [place] [address] Yamileth Sainz, ATOMIC PROCESS ENGINEER, IT SERVICE MANAGER [address] [place] [address] Medication Refill Social History Tobacco Use Types [...] unspecified documented in this encounter Care Teams Glaciologist Relationship Specialty Start Date End Date Estuardo Rosenberg MD [address] [place] [address] PCP - General Family Medicine 12/06/21 documented as of this encounter
--- OUTSIDE RECORDS SUMMARY | 2025-07-05 13:31 | XMS_ITS | Patient Health Record ---
Author Organization [facility] Address [address] [place] [address] Care Team Providers Care Technical Sales Consultant Name Role Phone Kolton Bruno Primary Care Provider Brent THORNE, Jack Unavailable Unavailable Reason For Referral No Information Plan Of Treatment No Information Insurance Providers Payer Name Payer Address Payer Phone Subscriber Number Group Number Insured Name Patient Relationship to Insured Coverage Start Date Coverage End Date [employer] [address] [place] [address] [id number] Beatrice Carl Self - patient is the insured
--- OUTSIDE RECORDS SUMMARY | 2025-07-05 13:31 | XMS_ITS | Encounter Summary ---
Author Organization [facility] Address [address] [facility] [place] [address] Care Team Providers Care Sap Basis Name Role Phone Bernie Madsen MD Primary Care Provider [phone] Nae Lewis MD Primary Care Provider [phone] Bernie Madsen MD Primary Care Provider [phone] Nae Lewis MD Primary Care Provider [phone] Nae Lewis MD Primary Care Provider [phone] Nae Lewis MD Unavailable Ely Gonsales FLOWER SHOP MANAGER-NUT ORCHARDIST Unavailable [phone] Luis Bowling MD Unavailable Unavailable Pam Kelly MD Unavailable [phone] Oleg Martinez MD Unavailable Carmelo Bone MD Unavailable Jomar Salgado MD Unavailable [phone] Luis Shanks MD Unavailable Pcp, [facility] Primary Care Provider Unavailable Bernie Madsen MD Unavailable [phone] Reason for Visit * Reason Onset Date Comments MEDICATION REFILL 07/09/2018 Encounter Details Date Type Department Care Team (Late st Contact Info) Description 07/09/2018 Refill Internal Medicine Clinic at [facility] [address] [place] [address] Brittaney Méndez MD [address] [place] [address] MEDICATION REFILL Social History Tobacco Use Types Packs/Day Years Used Date Smoking Tobacco: Some Days Cigarettes 0.5 30 Smokeless Tobacco: Never Comments:e-cig Alcohol Use Standard Drinks/Week Comments No 0 (1 standard drink = 0.6 oz pur e alcohol) Comments No Sex and Gender Information Value Date Recorded Sex Assigned at Not on file 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 Gender Identity Not on file Sexual Orientation [...] on filedocumented in this encounter Care Teams Sap Basis Relationship Specialty Start Date End Date Bernie Madsen MD PCP - General Internal Medicine 10/16/15 01/25/19 Nae Lewis MD PCP - General Internal Medicine 01/26/19 01/26/19 Bernie Madsen MD PCP - General 01/27/19 01/27/19 Nae Lewis MD PCP - General Internal Medicine 01/28/19 05/15/20 Nae Lewis MD PCP - General Internal Medicine 05/16/20 06/22/24 Ely Gonsales, FLOWER SHOP MANAGER-NUT ORCHARDIST [address] [facility] [place] [address] PCP - Attributed-[facility] ST[facility] 02/22/20 02/09/23 Pcp, [facility]- PCP - General 06/23/24 Bernie Madsen MD [address] [address] PCP - Attributed-[facility] 02/06/17 01/25/19 Nae Lewis MD Internal Medicine 05/16/20 Luis Bowling MD [address] [facility] [address] Ophthalmology 03/19/17 Pam Kelly MD [address] [facility] [address] [place] [address] Oncology 03/19/17 Oleg Martinez MD [address] [facility] [address] [place] [phone] Nephrology 03/19/17 Carmelo Bone MD [address] [facility] [address] [place] [address] Anesthesiology 05/04/18 Jomar Salgado MD [address] [facility] [address] [place] [address] [place] [address] Cardiovascular Disease 03/24/[address] [facility] [address] Anesthesiology 10/26/20 documented as of this encounter
--- OUTSIDE RECORDS SUMMARY | 2025-07-05 13:31 | XMS_ITS | Clinical Summary ---
Author Organization [facility] Address [address] [place] [address] Phone Care Team Providers Care Boatswains Mate Name Role Phone Estuardo Rosenberg MD Primary Care Provider [phone] Social History Tobacco Use Types Packs/Day Years [...] of 2) 08/12/2021 06/17/2021 Influenza Immunization (#1) 04/24/202505/25, 05/25/2020, 05/24/2019, Additional history exists SARS-COV-2 Immunization ( season) 2025 06/17/2021, 09/11/2020, 08/21/2020 Respiratory Syncytial Virus (RSV) [...] Insurance MEDICAID [employer] Care Teams Boatswains Mate Relationship Specialty Start Date End Date Estuardo Rosenberg MD [address] [place] [phone] PCP - General Family Medicine 12/06/21
--- OUTSIDE RECORDS SUMMARY | 2025-07-05 13:31 | XMS_ITS | Patient Health Record ---
Author Organization [facility] Address [address] [place] [id number] Care Team Providers Care Piano Regulator Inspector Name Role Phone Bernie Madsen MD Primary Care Provider Unavail able Michelle THORNE, Yarsanism Unavailable Allergies Allergen (clinical drug ingredient) Drug/Non [...] W/U Status Risk Notes Problem Essential hypertension (05354472) Essential (primary) hypertension (I10) Active confirmed BP is at goal. Her current regimen is appriopriate Problem Chronic kidney disease stage 3 (disorder) (918984842) Chronic kidney disease, stage 3 (moderate) (N18.3) [...] Start Date Coverage End Date [employer] [facility] [employer] [address] [address] [place], [place] [id number] Beatrice Carl Self - patient is the insured Medical (General) History Medical History History ICD Code DM w/ neuropathy HTN HLD
[2025-07-05 14:36] LABS: Alanine Aminotransferase 34 U/L (6-35); Albumin Level 4.8 g/dL (3.5-5.1); Alkaline Phosphatase 153 U/L (38-126); Anion Gap 10 mmol/L (4-12); Aspartate Amino Transferase 52 U/L (14-36); Blood Urea Nitrogen 10 mg/dL (7-17); Calcium 9.3 mg/dL (8.4-10.2); Carbon Dioxide 20 mmol/L (22-30); Chloride 111 mmol/L (98-107); Estimated Glomerular Filt Rate 51; Glucose 107 mg/dL (65-110); Osmolality Calculated 291 mOsm/kg (285-295); Sodium 141 mmol/L (137-145); Total Protein 7.4 g/dL (6.3-8.2)
[2025-07-10 14:16] LABS: Potassium 5.5 mmol/L (3.4-5.0)
[2025-07-11 13:13] LABS: Bilirubin,Total 1.1 mg/dL (0.2-1.3)
== END 2025-07-05 12:22 | disposition home or self-care (01) ==
LOC: CHSLAB 12:22
PROVIDERS: PCP Nurse Practitioner Family; Visit Provider Nurse Practitioner Family
DX: E11.22 Type 2 diabetes mellitus with diabetic chronic kidney disease (principal)
CPT/HCPCS: 36415; 80053; 83036